=== PATIENT | female | born 1935 | race Caucasian/White ===

== ENCOUNTER → 2016-06-28 | Outpatient (CLI) | payer MEDICARE, MEDICAID ==
[2016-06-28 10:49] LABS: HEMATOCRIT 39.7 % (36.0-47.0); HGB HCT DIFFERENCE -0.7; MEAN CORPUSCULAR HEMOGLOBIN 31.5 pg (27.0-33.4); MEAN CORPUSCULAR HGB CONC 32.7 g/dL (32.0-36.0); MEAN CORPUSCULAR VOLUME 96 fl (80-97); RED BLOOD COUNT 4.12 10^6/uL (3.72-5.28); RED CELL DISTRIBUTION WIDTH 12.6 % (11.5-14.0); WHITE BLOOD COUNT 7.7 10^3/uL (4.0-10.5)
[2016-06-28 10:53] LABS: APPEARANCE,URINE CLEAR; BILIRUBIN,URINE NEGATIVE (NEGATIVE); GLUCOSE, URINE NEGATIVE (NEGATIVE); KETONES,URINE NEGATIVE (NEGATIVE); LEUKOCYTE ESTERASE,URINE NEGATIVE (NEGATIVE); NITRITE,URINE NEGATIVE (NEGATIVE); PROTEIN,URINE NEGATIVE (NEGATIVE); URINE SPECIFIC GRAVITY 1.014; UROBILINOGEN,URINE NEGATIVE mg/dL (<2.0)
[2016-06-28 13:10] LABS: ANION GAP 9 (5-19); BLOOD UREA NITROGEN 27 mg/dL (7-20); CALCIUM 9.7 mg/dL (8.4-10.2); CARBON DIOXIDE 23 mmol/L (22-30); CHLORIDE 108 mmol/L (98-107); CREATININE RESULT 1.01 mg/dL (0.52-1.25); GLUCOSE 102 mg/dL (75-110); POTASSIUM 5.4 mmol/L (3.6-5.0); SODIUM 140.3 mmol/L (137-145)
== END ==
LOC: OD 09:43
PROVIDERS: ATTEND Internal Medicine Nephrology
DX: E11.22 Type 2 diabetes mellitus with diabetic chronic kidney disease (principal); I12.9 Hypertensive chronic kidney disease with stage 1 through stage 4 chronic kidney disease, or unspecified chronic kidney disease; N18.2 Chronic kidney disease, stage 2 (mild); D64.9 Anemia, unspecified
CPT/HCPCS: 36415; 80048; 81001; 85027

== ENCOUNTER → 2016-07-21 | Outpatient (CLI) | payer MEDICARE ==
[2016-07-21 10:49] LABS: ANION GAP 12 (5-19); BLOOD UREA NITROGEN 35 mg/dL (7-20); CALCIUM 9.4 mg/dL (8.4-10.2); CARBON DIOXIDE 23 mmol/L (22-30); CHLORIDE 108 mmol/L (98-107); CREATININE RESULT 1.23 mg/dL (0.52-1.25); GLUCOSE 112 mg/dL (75-110); POTASSIUM 5.7 mmol/L (3.6-5.0); SODIUM 142.7 mmol/L (137-145)
== END ==
LOC: OD 09:45
PROVIDERS: ATTEND Physician Assistant
DX: E87.5 Hyperkalemia (principal)
CPT/HCPCS: 36415; 80048

== ENCOUNTER → 2016-10-06 | Outpatient (CLI) | payer MEDICARE, MEDICAID ==
--- NOTE | 2016-10-06 15:19 | XCELERA REPORT ---
[address] [address] Transthoracic Echocardiogram Report Name: NICOLETTE COHEN Age: 80 yrs Gender: Female : 1935 Patient Status: Outpatient Patient Location: Study Date: 10/06/2016 10:27 AM Height: 61 in Weight: 162 lb BSA: 1.7 m2 Procedure: A two-dimensional transthoracic echocardiogram with color flow and Doppler was performed. Study Quality: Fair. Reason For Study: EDEMA History: EDEMA. Ordering Physician: MARY CAPUTO Performed By: Yessy Pennington Interpretation Summary The left ventricle is normal in size. There is normal left ventricular wall thickness. LV EF is 60% Left ventricular systolic function is normal. Doppler measurements suggest normal left ventricular diastolic function The left ventricular wall motion is normal. There is no thrombus. There is no ventricular septal defect visualized. The left atrial size is normal. The interatrial septum is intact with no evidence for an atrial septal defect. There is no evidence of mitral valve prolapse. There is no vegetation seen on the mitral valve. There is no mitral valve stenosis. There is a mild amount of mitral regurgitation There is no aortic valve stenosis There is no LVOT obstruction. No aortic regurgitation is present. There is no tricuspid stenosis. There is a mild amount of tricuspid regurgitation There is mild pulmonary hypertension by echo RVSP is 39 mm of Hg , with RA mean of 10. There is no pulmonic valvular stenosis. There is a mild amount of pulmonic regurgitation The inferior vena cava was not visualized There is no pericardial effusion. MMode/2D Measurements \T\ Calculations RVDd: 2.8 cm LVIDd: 4.5 cm FS: 36.0 % Ao root diam: 3.0 cm IVSd: 1.1 cm LVIDs: 2.9 cm EDV(Teich): 94.6 ml LVPWd: 1.1 cm ESV(Teich): 32.5 ml Ao root area: 6.8 cm2 EF(Teich): 65.7 % Doppler Measurements \T\ Calculations MV E max yousif: MV dec slope: Ao V2 max: LV V1 max P.5 cm/sec 109.2 cm/sec 3.8 mmHg MV A max yousif: 349.7 cm/sec2 Ao max PG: LV V1 max: 74.6 cm/sec MV dec time: 4.8 mmHg 98.0 cm/sec MV E/A: 1.4 0.29 sec PA V2 max: PI end-d yousif: TR max yousif: 67.8 cm/sec 130.7 cm/sec 254.7 cm/sec PA max P.8 mmHg TR max P.1 mmHg Left Ventricle The left ventricle is normal in size. There is normal left ventricular wall thickness. LV EF is 60%. Left ventricular systolic function is normal. Doppler measurements suggest normal left ventricular diastolic function. The left ventricular wall motion is normal. There is no thrombus. There is no ventricular septal defect visualized. Right Ventricle The right ventricle is normal in size and function. Atria The right atrium is normal in size. The left atrial size is normal. The interatrial septum is intact with no evidence for an atrial septal defect. Mitral Valve There is no evidence of mitral valve prolapse. There is no vegetation seen on the mitral valve. There is no mitral valve stenosis. There is a mild amount of mitral regurgitation. Aortic Valve There is no aortic valvular vegetation. There is no aortic valve stenosis. There is no LVOT obstruction. No aortic regurgitation is present. Tricuspid Valve There is no tricuspid stenosis. There is a mild amount of tricuspid regurgitation. There is mild pulmonary hypertension by echo. RVSP is 39 mm of Hg , with RA mean of 10. Pulmonic Valve There is no pulmonic valvular stenosis. There is a mild amount of pulmonic regurgitation. Great Vessels The aortic root is normal size. The inferior vena cava was not visualized. Effusions There is no pericardial effusion. : MARY CAPUTO > Bernadette Burgess
--- NOTE | 2016-10-07 07:58 | XCELERA REPORT ---
[address] [address] Lower Extremity Venous Evaluation Name: NICOLETTE COHEN Age: 80 yrs Gender: Female : 1935 Patient Status: Outpatient Patient Location: Study Date: 10/06/2016 08:55 AM Procedure: Color flow and duplex imaging bilaterally of the veins of the lower extremities as well as the Common Femoral veins. Reason For Study: EDEMA Ordering Physician: MARY CAPUTO Performed By: Yessy Pennington Right Sided Venous Evaluation Normal vessel filling wall to wall, compression and augmentation as well as Colour flow down to the infrageniculate veins. Left Sided Venous Evaluation Normal vessel filling wall to wall, compression and augmentation as well as Colour flow down to the infrageniculate veins. Interpretation Summary No duplex evidence of DVT or obstruction in the bilateral lower extremities. : MARY CAPUTO > Edgardo Marrero
== END ==
LOC: SP 08:27
PROVIDERS: ATTEND Physician Assistant
DX: R60.1 Generalized edema (principal); R60.0 Localized edema
CPT/HCPCS: 93306; 93970

== ENCOUNTER → 2016-11-18 | Outpatient (CLI) | payer MEDICARE, MEDICAID ==
[2016-11-18 10:37] LABS: HEMATOCRIT 37.2 % (36.0-47.0); HEMOGLOBIN 12.5 g/dL (12.0-15.5); HGB HCT DIFFERENCE 0.3; MEAN CORPUSCULAR HEMOGLOBIN 31.8 pg (27.0-33.4); MEAN CORPUSCULAR HGB CONC 33.7 g/dL (32.0-36.0); MEAN CORPUSCULAR VOLUME 94 fl (80-97); RED BLOOD COUNT 3.95 10^6/uL (3.72-5.28); WHITE BLOOD COUNT 6.9 10^3/uL (4.0-10.5)
[2016-11-18 10:50] LABS: ANION GAP 13 (5-19); BLOOD UREA NITROGEN 50 mg/dL (7-20); CALCIUM 8.6 mg/dL (8.4-10.2); CARBON DIOXIDE 20 mmol/L (22-30); CHLORIDE 106 mmol/L (98-107); CREATININE RESULT 1.54 mg/dL (0.52-1.25); GLUCOSE 109 mg/dL (75-110); MAGNESIUM 2.6 mg/dL (1.6-2.3); POTASSIUM 4.9 mmol/L (3.6-5.0); SODIUM 139.3 mmol/L (137-145)
== END ==
LOC: OD 09:38
PROVIDERS: ATTEND Internal Medicine Nephrology
DX: N18.2 Chronic kidney disease, stage 2 (mild) (principal); E87.5 Hyperkalemia; D64.9 Anemia, unspecified; I12.9 Hypertensive chronic kidney disease with stage 1 through stage 4 chronic kidney disease, or unspecified chronic kidney disease
CPT/HCPCS: 36415; 80048; 83735; 85027

== ENCOUNTER → 2017-03-16 | Outpatient (CLI) | payer MEDICARE, MEDICAID ==
--- NOTE | 2017-03-16 16:53 | RADIOLOGY REPORT (SQ) ---
EXAM DESCRIPTION: ACUTE ABDOMEN SERIES COMPLETED DATE/TIME: 03/16/2017 4:40 pm REASON FOR STUDY: EPIGASTRIC PAIN R10.13 EPIGASTRIC PAIN COMPARISON: CT abdomen pelvis 11/13/2015 Abdominal ultrasound 09/10/2015 MR high abdomen 08/02/2010 NUMBER OF VIEWS: Three views. TECHNIQUE: Frontal chest, supine abdomen and upright abdomen radiographic images acquired. LIMITATIONS: None. FINDINGS: CHEST: Lungs clear of infiltrates. No cardiomegaly. Stefanie unremarkable. Old healed right posterior 7th rib fracture FREE AIR: None. No abnormal gas collections. BOWEL GAS PATTERN: Nonobstructive pattern. No dilated loops or air fluid levels. CALCIFICATIONS: No suspicious calcifications. HARDWARE: None in the abdomen. SOFT TISSUES: No gross mass or suggestion of organomegaly. BONES: Osteoporotic with degenerative convex rightward lumbar curvature and kyphoplasty with bone kayy ent at the T12 level OTHER: No other significant finding. IMPRESSION: Nonobstructive bowel gas pattern. No acute infiltrates TECHNICAL DOCUMENTATION: JOB ID: [id number] [email or web address]- All Rights Reserved
== END ==
LOC: OD 16:16
PROVIDERS: ATTEND Physician Assistant
DX: R10.13 Epigastric pain (principal)
CPT/HCPCS: 74022

== ENCOUNTER → 2017-03-24 | Outpatient (CLI) | payer MEDICARE, MEDICAID ==
--- NOTE | 2017-03-24 12:56 | RADIOLOGY REPORT (SQ) ---
EXAM DESCRIPTION: CT ABD/PELVIS NO ORAL OR IV COMPLETED DATE/TIME: 03/24/2017 9:19 am REASON FOR STUDY: LLQ PAIN (R10.32) R10.32 LEFT LOWER QUADRANT PAIN COMPARISON: October 2015 TECHNIQUE: CT scan of the abdomen and pelvis performed without intravenous or oral contrast. Images reviewed with lung, soft tissue, and bone windows. Reconstructed coronal and sagittal MPR images revi ewed. All images stored on PACS. All CT scanners at this facility use dose modulation, iterative reconstruction, and/or weight based d osing when appropriate to reduce radiation dose to as low as reasonably achievable (ALARA). [facility]: Dose Right [facility]: CareDose [facility]: Dose Right [facility]: Teradose 4D [facility]: [employer] RADIATION DOSE: CT Rad equipment meets quality standard of care and radiation dose reduction techniq ues were employed. CTDIvol: 8.5 mGy. DLP: 399 mGy-cm.mGy. LIMITATIONS: None. FINDINGS: LOWER CHEST: No significant findings. No nodules or infiltrates. NON-CONTRASTED LIVER, SPLEEN, ADRENALS: Evaluation limited by lack of IV contrast. No identified sign ificant masses. PANCREAS: No masses. No peripancreatic inflammatory changes. GALLBLADDER: No identified stones by CT criteria. No inflammatory changes to suggest cholecystitis. RIGHT KIDNEY AND URETER: No suspicious masses. Assessment limited by lack of IV contrast. No signif icant calcifications. No hydronephrosis or hydroureter. LEFT KIDNEY AND URETER: No suspicious masses. Assessment limited by lack of IV contrast. No signifi cant calcifications. No hydronephrosis or hydroureter. AORTA AND RETROPERITONEUM: No aneurysm. No retroperitoneal masses or adenopathy. BOWEL AND PERITONEAL CAVITY: No obvious masses or inflammatory changes. No free fluid. APPENDIX: Not identified PELVIS, BLADDER, AND ABDOMINAL WALL:No abnormal masses. No free fluid. Bladder normal. BONES: A lumbar scoliosis convex to the right is identified with extensive degenerative changes. OTHER: No other significant finding. IMPRESSION: NO SIGNIFICANT OR ACUTE PROCESS IN THE ABDOMEN OR PELVIS. COMMENT: Quality ID # 436: Final reports with documentation of one or more dose reduction techniques (e.g., Automated exposure control, adjustment of the mA and/or kV according to patient size, use of iterative reconstruction technique) TECHNICAL DOCUMENTATION: JOB ID: [id number]- All Rights Reserved
== END ==
LOC: RAD 08:48
PROVIDERS: ATTEND Physician Assistant
DX: R10.32 Left lower quadrant pain (principal); M41.86 Other forms of scoliosis, lumbar region; Z88.6 Allergy status to analgesic agent; Z88.8 Allergy status to other drugs, medicaments and biological substances
CPT/HCPCS: 74176

== ENCOUNTER → 2017-06-12 | Outpatient (CLI) | payer MEDICARE, MEDICAID ==
[2017-06-12 11:28] LABS: HEMATOCRIT 37.4 % (36.0-47.0); HEMOGLOBIN 12.4 g/dL (12.0-15.5); MEAN CORPUSCULAR HEMOGLOBIN 31.3 pg (27.0-33.4); MEAN CORPUSCULAR HGB CONC 33.1 g/dL (32.0-36.0); MEAN CORPUSCULAR VOLUME 94 fl (80-97); RED BLOOD COUNT 3.97 10^6/uL (3.72-5.28); RED CELL DISTRIBUTION WIDTH 13.3 % (11.5-14.0); WHITE BLOOD COUNT 10.5 10^3/uL (4.0-10.5)
[2017-06-12 11:43] LABS: APPEARANCE,URINE CLEAR; BILIRUBIN,URINE NEGATIVE (NEGATIVE); COLOR,URINE YELLOW; GLUCOSE, URINE NEGATIVE (NEGATIVE); KETONES,URINE NEGATIVE (NEGATIVE); LEUKOCYTE ESTERASE,URINE TRACE (NEGATIVE); NITRITE,URINE NEGATIVE (NEGATIVE); PROTEIN,URINE NEGATIVE (NEGATIVE); URINE SPECIFIC GRAVITY 1.013; UROBILINOGEN,URINE NEGATIVE mg/dL (<2.0)
[2017-06-12 11:51] LABS: ANION GAP 13 (5-19); BLOOD UREA NITROGEN 19 mg/dL (7-20); CALCIUM 9.4 mg/dL (8.4-10.2); CARBON DIOXIDE 25 mmol/L (22-30); CHLORIDE 103 mmol/L (98-107); GLUCOSE 114 mg/dL (75-110); POTASSIUM 4.8 mmol/L (3.6-5.0); SODIUM 141.3 mmol/L (137-145)
[2017-06-12 12:00] LABS: PLATELET COUNT 147 10^3/uL (150-450)
== END ==
LOC: OD 10:26
PROVIDERS: ATTEND Internal Medicine Nephrology
DX: N18.2 Chronic kidney disease, stage 2 (mild) (principal); E87.5 Hyperkalemia; D64.9 Anemia, unspecified; E11.9 Type 2 diabetes mellitus without complications
CPT/HCPCS: 36415; 80048; 81001; 85027

== ENCOUNTER → 2017-06-30 | Outpatient (CLI) | payer MEDICARE, MEDICAID ==
[2017-06-30 11:57] LABS: ABSOLUTE EOSINOPHILS # (AUTO) 0.1 10^3/uL (0.0-0.6); ABSOLUTE LYMPHOCYTES (AUTO) 1.1 10^3/uL (0.5-4.7); ABSOLUTE MONOCYTES (AUTO) 0.7 10^3/uL (0.1-1.4); ABSOLUTE NEUT (AUTO) 7.7 10^3/uL (1.7-8.2); BASOPHILS % (AUTO) 0.3 % (0-2); EOSINOPHILS % (AUTO) 0.8 % (0-6); HEMATOCRIT 37.1 % (36.0-47.0); HEMOGLOBIN 12.6 g/dL (12.0-15.5); LYMPHOCYTES % (AUTO) 11.8 % (13-45); MEAN CORPUSCULAR HEMOGLOBIN 32.4 pg (27.0-33.4); MEAN CORPUSCULAR HGB CONC 33.9 g/dL (32.0-36.0); MEAN CORPUSCULAR VOLUME 96 fl (80-97); MONOCYTES % (AUTO) 7.6 % (3-13); PLATELET COUNT 201 10^3/uL (150-450); RED BLOOD COUNT 3.88 10^6/uL (3.72-5.28); SEGMENTED NEUTROPHILS % (AUTO) 79.5 % (42-78); TOTAL CELLS COUNTED % (AUTO) 100 %; WHITE BLOOD COUNT 9.7 10^3/uL (4.0-10.5)
--- NOTE | 2017-06-30 12:20 | RADIOLOGY REPORT (SQ) ---
EXAM DESCRIPTION: CHEST PA/LAT COMPLETED DATE/TIME: 06/30/2017 11:34 am REASON FOR STUDY: COUGH COMPARISON: 02/17/2016 EXAM PARAMETERS: NUMBER OF VIEWS: two views TECHNIQUE: Digital Frontal and Lateral radiographic views of the chest acquired. RADIATION DOSE: NA LIMITATIONS: none FINDINGS: LUNGS AND PLEURA: No opacities, masses or pneumothorax. No pleural effusion. MEDIASTINUM AND HILAR STRUCTURES: No masses or contour abnormalities. HEART AND VASCULAR STRUCTURES: Heart normal size. No evidence for failure. BONES: Stable in appearance. There is a healed right-sided rib fracture. HARDWARE: None in the chest. OTHER: No other significant finding. IMPRESSION: NO SIGNIFICANT RADIOGRAPHIC FINDING IN THE CHEST. TECHNICAL DOCUMENTATION: JOB ID: [id number] [employer]- All Rights Reserved Reading location - IP/workstation name: [email or web address]
[2017-06-30 12:24] LABS: ALANINE AMINOTRANSFERASE 48 U/L (9-52); ALKALINE PHOSPHATASE 93 U/L (38-126); ANION GAP 8 (5-19); ASPARTATE AMINO TRANSFERASE 42 U/L (14-36); BILIRUBIN,DIRECT 0.3 mg/dL (0.0-0.4); BILIRUBIN,TOTAL 0.3 mg/dL (0.2-1.3); BLOOD UREA NITROGEN 20 mg/dL (7-20); CARBON DIOXIDE 26 mmol/L (22-30); CHLORIDE 106 mmol/L (98-107); GLUCOSE 85 mg/dL (75-110); POTASSIUM 4.5 mmol/L (3.6-5.0); SODIUM 140.1 mmol/L (137-145); TOTAL PROTEIN 6.8 g/dL (6.3-8.2)
== END ==
LOC: RAD 11:16
PROVIDERS: ATTEND Physician Assistant
DX: R05 Cough (principal)
CPT/HCPCS: 36415; 71046; 80053; 85025

== ENCOUNTER → 2017-07-17 | Outpatient (CLI) | payer MEDICARE, MEDICAID ==
--- NOTE | 2017-07-17 10:56 | RADIOLOGY REPORT (SQ) ---
EXAM DESCRIPTION: CT CHEST WITHOUT COMPLETED DATE/TIME: 07/17/2017 9:45 am REASON FOR STUDY: COUGH R05 COUGH COMPARISON: None. TECHNIQUE: CT scan performed of the chest without intravenous contrast. Images reviewed with lung, soft tissue and bone windows. Reconstructed coronal and sagittal MPR images reviewed. All images st ored on PACS. All CT scanners at this facility use dose modulation, iterative reconstruction, and/or weight based d osing when appropriate to reduce radiation dose to as low as reasonably achievable (ALARA). [facility]: Dose Right [facility]: CareDose [facility]: Dose Right [facility]: Teradose 4D [facility]: [employer] RADIATION DOSE: CT Rad equipment meets quality standard of care and radiation dose reduction techniq ues were employed. CTDIvol: 9.7 mGy. DLP: 349 mGy-cm. mGy. LIMITATIONS: No technical limitations. FINDINGS: LUNGS AND PLEURA: Focal small to mild parenchymal densities in the left upper lobe, axial image 45, series 4, may be on the basis of atypical infection, inflammatory/infectious etiologies. Mild thickening of the bronchial lambert centrally, may be on an acute versus chronic basis. Bilateral non-calcified pulmonary nodules. One of the largest is in the right lower lobe which measur es 6-7 mm, axial image 85, series 4(stable finding since CT abdomen and pelvis study dated 03/24/2017) . Biapical mild scar or atelectasis. No pneumothorax or pleural effusion. The central airways are clear. HILAR AND MEDIASTINAL STRUCTURES: No identified masses or abnormal nodes. No obvious aneurysm. HEART AND VASCULAR STRUCTURES: Dense coronary artery calcifications. No aneurysm. No pericardial e ffusion. UPPER ABDOMEN: Atherosclerotic changes involving the visualized upper abdominal aorta. Limited exam . THYROID AND OTHER SOFT TISSUES: No masses. No adenopathy. BONES: Prior kyphoplasty at T12 with remote compression of the T12 vertebra, stable finding. HARDWARE: None in the chest. OTHER: No other significant findings. IMPRESSION: 1 Focal small to mild parenchymal densitis in the left upper lobe, may be on the basis o f atypical infection, inflammatory/ infectious etiologies. Correlation is suggested. 2 Bilateral noncalcified subcentimeter pulmonary nodules. One of the largest in the right lower lobe is stable in appearance since the CT abdomen and pelvis study dated 04/13/2017. A follow-up noncont rast CT chest examination is suggested in three months to document for interval stability. 3 Additional findings as above. TECHNICAL DOCUMENTATION: JOB ID: [id number] Quality ID # 436: Final reports with documentation of one or more dose reduction techniques (e.g., Au tomated exposure control, adjustment of the mA and/or kV according to patient size, use of iterative reconstruction technique) 2010 [employer]- All Rights Reserved Reading location - IP/workstation name: [email or web address]
== END ==
LOC: RAD 09:32
PROVIDERS: ATTEND Physician Assistant
DX: R05 Cough (principal)
CPT/HCPCS: 71250

== ENCOUNTER → 2017-12-04 | Outpatient (CLI) | payer MEDICARE, MEDICAID ==
--- NOTE | 2017-12-04 10:53 | RADIOLOGY REPORT (SQ) ---
EXAM DESCRIPTION: CT CHEST WITHOUT COMPLETED DATE/TIME: 12/04/2017 10:35 am REASON FOR STUDY: OTHER NONSPECIFIC ABN FINDING OF LUNG FIELD (R91.8) R91.8 OTHER NONSPECIFIC ABNOR MAL FINDING OF LUNG FIELD COMPARISON: 07/17/2017. TECHNIQUE: CT scan performed of the chest without intravenous contrast. Images reviewed with lung, soft tissue and bone windows. Reconstructed coronal and sagittal MPR images reviewed. All images st ored on PACS. All CT scanners at this facility use dose modulation, iterative reconstruction, and/or weight based d osing when appropriate to reduce radiation dose to as low as reasonably achievable (ALARA). [facility]: Dose Right [facility]: CareDose [facility]: Dose Right [facility]: Teradose 4D [facility]: [employer] RADIATION DOSE: CT Rad equipment meets quality standard of care and radiation dose reduction techniq ues were employed. CTDIvol: 8.8 mGy. DLP: 316 mGy-cm. mGy. LIMITATIONS: No technical limitations. FINDINGS: LUNGS AND PLEURA: Previously described faint ground-glass nodules in the left upper lobe a nd left lower lobe along the fissure over are stable or less conspicuous. No new nodules are identif ied. No effusions. HILAR AND MEDIASTINAL STRUCTURES: No identified masses or abnormal nodes. No obvious aneurysm. HEART AND VASCULAR STRUCTURES: No aneurysm. No pericardial effusion. UPPER ABDOMEN: Limited exam. Right renal collecting system is dilated. THYROID AND OTHER SOFT TISSUES: No masses. No adenopathy. BONES: No acute findings. Prior kyphoplasty transitional vertebra. HARDWARE: None in the chest. OTHER: No other significant findings. IMPRESSION: 1. Stable ground-glass nodules in the left lung. 2. Dilated right renal collecting system incompletely evaluated. Consider follow-up ultrasound or CT . TECHNICAL DOCUMENTATION: JOB ID: [id number] Quality ID # 436: Final reports with documentation of one or more dose reduction techniques (e.g., Au tomated exposure control, adjustment of the mA and/or kV according to patient size, use of iterative reconstruction technique) 2010 [employer]- All Rights Reserved Reading location - IP/workstation name: [email or web address]
== END ==
LOC: RAD 09:58
PROVIDERS: ATTEND Internal Medicine Critical Care Medicine
DX: R91.8 Other nonspecific abnormal finding of lung field (principal)
CPT/HCPCS: 71250

== ENCOUNTER → 2017-12-19 | Outpatient (CLI) | payer MEDICARE, MEDICAID ==
[2017-12-19 12:16] LABS: APPEARANCE,URINE CLEAR; BILIRUBIN,URINE NEGATIVE (NEGATIVE); COLOR,URINE YELLOW; GLUCOSE, URINE NEGATIVE (NEGATIVE); KETONES,URINE NEGATIVE (NEGATIVE); LEUKOCYTE ESTERASE,URINE SMALL (NEGATIVE); NITRITE,URINE NEGATIVE (NEGATIVE); PROTEIN,URINE NEGATIVE (NEGATIVE); URINE SPECIFIC GRAVITY 1.014; UROBILINOGEN,URINE NEGATIVE mg/dL (<2.0)
[2017-12-19 12:18] LABS: HEMATOCRIT 34.6 % (36.0-47.0); HEMOGLOBIN 11.8 g/dL (12.0-15.5); MEAN CORPUSCULAR HEMOGLOBIN 32.2 pg (27.0-33.4); MEAN CORPUSCULAR HGB CONC 34.2 g/dL (32.0-36.0); MEAN CORPUSCULAR VOLUME 94 fl (80-97); PLATELET COUNT 193 10^3/uL (150-450); RED BLOOD COUNT 3.67 10^6/uL (3.72-5.28); RED CELL DISTRIBUTION WIDTH 12.3 % (11.5-14.0); WHITE BLOOD COUNT 7.9 10^3/uL (4.0-10.5)
[2017-12-19 12:50] LABS: ANION GAP 12 (5-19); BLOOD UREA NITROGEN 35 mg/dL (7-20); CALCIUM 9.3 mg/dL (8.4-10.2); CARBON DIOXIDE 22 mmol/L (22-30); CHLORIDE 107 mmol/L (98-107); GLUCOSE 99 mg/dL (75-110); POTASSIUM 5.4 mmol/L (3.6-5.0); SODIUM 140.5 mmol/L (137-145)
== END ==
LOC: OD 11:02
PROVIDERS: ATTEND Internal Medicine Nephrology
DX: N18.3 Chronic kidney disease, stage 3 (moderate) (principal); I12.9 Hypertensive chronic kidney disease with stage 1 through stage 4 chronic kidney disease, or unspecified chronic kidney disease; E87.5 Hyperkalemia; E11.22 Type 2 diabetes mellitus with diabetic chronic kidney disease
CPT/HCPCS: 36415; 80048; 81001; 85027

== ENCOUNTER → 2018-01-19 | Outpatient (CLI) | payer MEDICARE, MEDICAID ==
[2018-01-19 10:27] LABS: HEMOGLOBIN 11.1 g/dL (12.0-15.5); MEAN CORPUSCULAR HEMOGLOBIN 32.1 pg (27.0-33.4); MEAN CORPUSCULAR HGB CONC 34.6 g/dL (32.0-36.0); MEAN CORPUSCULAR VOLUME 93 fl (80-97); PLATELET COUNT 183 10^3/uL (150-450); RED BLOOD COUNT 3.45 10^6/uL (3.72-5.28); RED CELL DISTRIBUTION WIDTH 12.5 % (11.5-14.0); WHITE BLOOD COUNT 8.9 10^3/uL (4.0-10.5)
[2018-01-19 10:31] LABS: APPEARANCE,URINE CLEAR; BILIRUBIN,URINE NEGATIVE (NEGATIVE); COLOR,URINE STRAW; GLUCOSE, URINE NEGATIVE (NEGATIVE); KETONES,URINE NEGATIVE (NEGATIVE); LEUKOCYTE ESTERASE,URINE SMALL (NEGATIVE); NITRITE,URINE NEGATIVE (NEGATIVE); PROTEIN,URINE NEGATIVE (NEGATIVE); UROBILINOGEN,URINE NEGATIVE mg/dL (<2.0)
[2018-01-19 10:45] LABS: ANION GAP 10 (5-19); BLOOD UREA NITROGEN 45 mg/dL (7-20); CALCIUM 8.6 mg/dL (8.4-10.2); CARBON DIOXIDE 21 mmol/L (22-30); CHLORIDE 105 mmol/L (98-107); GLUCOSE 132 mg/dL (75-110); POTASSIUM 5.1 mmol/L (3.6-5.0); SODIUM 135.8 mmol/L (137-145)
== END ==
LOC: OD 09:45
PROVIDERS: ATTEND Internal Medicine Nephrology
DX: N18.2 Chronic kidney disease, stage 2 (mild) (principal)
CPT/HCPCS: 36415; 80048; 81001; 85027

== ENCOUNTER → 2018-01-31 | Outpatient (CLI) | payer MEDICARE, MEDICAID | LOC: RAD 08:59 | PROVIDERS: ATTEND Urology | DX: N39.0 Urinary tract infection, site not specified (principal); R31.9 Hematuria, unspecified | CPT/HCPCS: 82565 ==

== ENCOUNTER → 2018-03-05 | Outpatient (CLI) | payer MEDICARE, MEDICAID ==
--- NOTE | 2018-03-05 14:48 | RADIOLOGY REPORT (SQ) ---
EXAM DESCRIPTION: CT ABD/PELVIS NO ORAL OR IV COMPLETED DATE/TIME: 03/05/2018 9:49 am REASON FOR STUDY: HEMATURIA HYDRONEPHROSIS R31.9 HEMATURIA, UNSPECIFIED N13.30 UNSPECIFIED HYDRONE PHROSIS COMPARISON: 03/24/2017 TECHNIQUE: CT scan of the abdomen and pelvis performed without intravenous or oral contrast. Images reviewed with lung, soft tissue, and bone windows. Reconstructed coronal and sagittal MPR images revi ewed. All images stored on PACS. All CT scanners at this facility use dose modulation, iterative reconstruction, and/or weight based d osing when appropriate to reduce radiation dose to as low as reasonably achievable (ALARA). [facility]: Dose Right [facility]: CareDose [facility]: Dose Right [facility]: Teradose 4D [facility]: [employer] RADIATION DOSE: CT Rad equipment meets quality standard of care and radiation dose reduction techniq ues were employed. CTDIvol: 7.2 mGy. DLP: 343 mGy-cm.mGy. LIMITATIONS: None. FINDINGS: LOWER CHEST: There is an 8 mm stable nodule at the right hemidiaphragm. This is seen on i mage 12. NON-CONTRASTED LIVER, SPLEEN, ADRENALS: Evaluation limited by lack of IV contrast. No identified sign ificant masses. PANCREAS: No masses. No peripancreatic inflammatory changes. GALLBLADDER: There appear to be some small relatively low-density gallstones. RIGHT KIDNEY AND URETER: There appears to be mild right hydronephrosis. No significant ureteral dila tation. No ureteral stone or obstruction. No significant calcifications. LEFT KIDNEY AND URETER: No suspicious masses. Assessment limited by lack of IV contrast. No signifi cant calcifications. No hydronephrosis or hydroureter. AORTA AND RETROPERITONEUM: No aneurysm. There is prominent plaque at the origin of the superior mese nteric artery. BOWEL AND PERITONEAL CAVITY: No obvious masses or inflammatory changes. No free fluid. APPENDIX: Not identified. PELVIS, BLADDER, AND ABDOMINAL WALL:No abnormal masses. No free fluid. Bladder normal. BONES: Scoliosis. Degenerative disc changes. Compression changes with kyphoplasty at T12. OTHER: No other significant finding. IMPRESSION: Stable small right pulmonary nodule. Mild right hydronephrosis with no ureteral stone o r obstruction identified. Osseous findings as described. Prominent plaque at the origin of the SMA. COMMENT: FLEISCHNER CRITERIA FOR FOLLOW-UP OF PULMONARY NODULES Incidentally detected new nodules in persons 35 or older. HIGH RISK: History of smoking or other known risk factors. 6-8mm single solid nodule: LOW RISK: CT 6-12 mo; then consider CT 18-24 mo. HIGH RISK: CT 6-12 mo; th en CT 18-24 mo. Quality ID # 436: Final reports with documentation of one or more dose reduction techniques (e.g., Au tomated exposure control, adjustment of the mA and/or kV according to patient size, use of iterative reconstruction technique) TECHNICAL DOCUMENTATION: JOB ID: [id number] [employer]- All Rights Reserved Reading location - IP/workstation name: [email or web address]
== END ==
LOC: RAD 09:35
PROVIDERS: ATTEND Urology
DX: N13.30 Unspecified hydronephrosis (principal); R31.9 Hematuria, unspecified; R91.1 Solitary pulmonary nodule
CPT/HCPCS: 74176

== ENCOUNTER → 2018-03-13 | Outpatient (CLI) | payer MEDICARE, MEDICAID ==
[2018-03-13 10:44] LABS: APPEARANCE,URINE CLOUDY; BILIRUBIN,URINE NEGATIVE (NEGATIVE); COLOR,URINE STRAW; GLUCOSE, URINE NEGATIVE (NEGATIVE); KETONES,URINE NEGATIVE (NEGATIVE); LEUKOCYTE ESTERASE,URINE LARGE (NEGATIVE); NITRITE,URINE NEGATIVE (NEGATIVE); PROTEIN,URINE NEGATIVE (NEGATIVE); URINE SPECIFIC GRAVITY 1.006; UROBILINOGEN,URINE NEGATIVE mg/dL (<2.0)
[2018-03-13 10:59] LABS: ABSOLUTE LYMPHOCYTES (AUTO) 0.9 10^3/uL (0.5-4.7); ABSOLUTE MONOCYTES (AUTO) 0.5 10^3/uL (0.1-1.4); ABSOLUTE NEUT (AUTO) 7.7 10^3/uL (1.7-8.2); BASOPHILS % (AUTO) 0.2 % (0-2); HEMATOCRIT 33.7 % (36.0-47.0); HEMOGLOBIN 11.5 g/dL (12.0-15.5); LYMPHOCYTES % (AUTO) 9.5 % (13-45); MEAN CORPUSCULAR HGB CONC 34.2 g/dL (32.0-36.0); MEAN CORPUSCULAR VOLUME 94 fl (80-97); MONOCYTES % (AUTO) 5.3 % (3-13); PLATELET COUNT 266 10^3/uL (150-450); RED BLOOD COUNT 3.59 10^6/uL (3.72-5.28); RED CELL DISTRIBUTION WIDTH 13.5 % (11.5-14.0); TOTAL CELLS COUNTED % (AUTO) 100 %; WHITE BLOOD COUNT 9.1 10^3/uL (4.0-10.5)
[2018-03-13 11:19] LABS: ANION GAP 13 (5-19); BLOOD UREA NITROGEN 39 mg/dL (7-20); CALCIUM 9.4 mg/dL (8.4-10.2); CARBON DIOXIDE 21 mmol/L (22-30); CHLORIDE 106 mmol/L (98-107); GLUCOSE 141 mg/dL (75-110); POTASSIUM 4.6 mmol/L (3.6-5.0)
== END ==
LOC: OD 09:50
PROVIDERS: ATTEND Internal Medicine Nephrology
DX: I12.9 Hypertensive chronic kidney disease with stage 1 through stage 4 chronic kidney disease, or unspecified chronic kidney disease (principal); N18.2 Chronic kidney disease, stage 2 (mild); N39.0 Urinary tract infection, site not specified
CPT/HCPCS: 36415; 80048; 81001; 85025

== ENCOUNTER → 2018-03-30 | Outpatient (CLI) | payer MEDICARE, MEDICAID ==
[2018-03-30 10:36] LABS: ANION GAP 11 (5-19); BLOOD UREA NITROGEN 25 mg/dL (7-20); CALCIUM 8.5 mg/dL (8.4-10.2); CARBON DIOXIDE 23 mmol/L (22-30); CHLORIDE 111 mmol/L (98-107); GLUCOSE 132 mg/dL (75-110); POTASSIUM 4.3 mmol/L (3.6-5.0); SODIUM 144.5 mmol/L (137-145)
== END ==
LOC: OD 08:28
PROVIDERS: ATTEND Family Medicine
DX: E87.5 Hyperkalemia (principal)
CPT/HCPCS: 36415; 80048

== ENCOUNTER 2018-05-11 18:21 | Emergency (ER) | payer MEDICARE, MEDICAID ==
[2018-05-11] MEDS ORDERED: OXYCODONE-ACETAMINOPHEN 5-325 MG TABLET PO ONE (21:50)
[2018-05-11] MEDS ORDERED: ONDANSETRON 4 MG TAB.RAPDIS PO ONE (21:50)
--- NOTE | 2018-05-11 21:51 | ER Document Report ---
ED Medical Screen (RME) - General Chief Complaint: Abdominal Pain Stated Complaint: ABDOMINAL PAIN Time Seen by Provider: 05/11/18 21:49 Primary Care Provider: ESTUARDO OCASIO MD [Primary Care Provider] - Follow up as needed Notes: 82-year-old female with chief complaint of sharp lower abdominal pain. Radiates from the lower towards the mid abdomen. No flank pain. No chest pain. No vomiting. Has had bowel movements. Had bladder scraping for bladder cancer [address] Smith at [facility]. Initially had no trouble but has developed increasing pain for the past several days. Today pain became severe. TRAVEL OUTSIDE OF THE [place] 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 Denies: Hx Mastectomy, Hx Open Heart Surgery, Hx Pacemaker - Immunizations Hx Diphtheria, Pertussis, Tetanus Vaccination: Yes Physical Exam - Vital signs Vitals: Temp Pulse Resp BP Pulse Ox 97.8 F 88 20 96/62 L 99 05/11/18 18:35 05/11/18 18:35 05/11/18 18:35 05/11/18 18:35 05/11/18 18:35 - Abdominal Tenderness: Tender - Tender in the lower abdomen generally and going up towards the mid abdomen. Nonspecific. No particular guarding. Exam limited by sitting position. Course - Re-evaluation Re-evalutation: Patient talkative and well-appearing. She does have abdominal pain on exam. Blood pressure rechecked and is normal. - Vital Signs Vital signs: Temp Pulse Resp BP Pulse Ox 97.8 F 88 20 124/68 99 05/11/18 18:35 05/11/18 18:35 05/11/18 18:35 05/11/18 21:49 05/11/18 18:35 Doctor's Discharge - Discharge Referrals: ESTUARDO OCASIO MD [Primary Care Provider] - Follow up as needed
[2018-05-11 22:26] LABS: ABSOLUTE BASOPHILS # (AUTO) 0.1 10^3/uL (0.0-0.2); ABSOLUTE EOSINOPHILS # (AUTO) 0.3 10^3/uL (0.0-0.6); ABSOLUTE LYMPHOCYTES (AUTO) 1.7 10^3/uL (0.5-4.7); ABSOLUTE MONOCYTES (AUTO) 0.6 10^3/uL (0.1-1.4); BASOPHILS % (AUTO) 0.8 % (0-2); EOSINOPHILS % (AUTO) 3.3 % (0-6); HEMATOCRIT 36.3 % (36.0-47.0); HEMOGLOBIN 12.1 g/dL (12.0-15.5); LYMPHOCYTES % (AUTO) 22.4 % (13-45); MEAN CORPUSCULAR HGB CONC 33.3 g/dL (32.0-36.0); MEAN CORPUSCULAR VOLUME 96 fl (80-97); MONOCYTES % (AUTO) 7.8 % (3-13); PLATELET COUNT 213 10^3/uL (150-450); RED BLOOD COUNT 3.77 10^6/uL (3.72-5.28); RED CELL DISTRIBUTION WIDTH 13.5 % (11.5-14.0); SEGMENTED NEUTROPHILS % (AUTO) 65.7 % (42-78); TOTAL CELLS COUNTED % (AUTO) 100 %; WHITE BLOOD COUNT 7.6 10^3/uL (4.0-10.5)
[2018-05-11 22:42] LABS: ALANINE AMINOTRANSFERASE 22 U/L (9-52); ALBUMIN 4.5 g/dL (3.5-5.0); ALKALINE PHOSPHATASE 109 U/L (38-126); ANION GAP 5 (5-19); ASPARTATE AMINO TRANSFERASE 32 U/L (14-36); BILIRUBIN,DIRECT 0.3 mg/dL (0.0-0.4); BILIRUBIN,TOTAL 0.4 mg/dL (0.2-1.3); BLOOD UREA NITROGEN 34 mg/dL (7-20); CALCIUM 9.1 mg/dL (8.4-10.2); CARBON DIOXIDE 26 mmol/L (22-30); CHLORIDE 108 mmol/L (98-107); GLUCOSE 96 mg/dL (75-110); POTASSIUM 4.9 mmol/L (3.6-5.0); SODIUM 139.1 mmol/L (137-145); TOTAL PROTEIN 7.5 g/dL (6.3-8.2)
--- NOTE | 2018-05-11 23:15 | RADIOLOGY REPORT (SQ) ---
EXAM DESCRIPTION: CT ABDOMEN PELVIS WITHOUT IV CONTRAST COMPLETED DATE/TME: 05/11/2018 21:49 CLINICAL HISTORY: 82 years, Female, sharp lower abd pain COMPARISON: 03/05/2018 CT TECHNIQUE: 298 Images stored on PACS. All CT scanners at this facility use dose modulation, iterative reconstruction, and/or weight based dosing when appropriate to reduce radiation dose to as low as reasonably achievable (ALARA). [facility]: Dose Right [facility]: CareDose [facility]: Dose Right [facility]: Teradose 4D [facility]: [employer] LIMITATIONS: None. FINDINGS: Limited evaluation of the lung bases is otherwise stable, approximately 7.7 mm nodule right lung base. Unremarkable. Osseous structures are grossly intact. Suspected fatty infiltrative change to the liver. The spleen, adrenal glands, pancreas, kidneys are unremarkable. Negative for urinary tract calculus or hydronephrosis. The gallbladder is present. Moderate atheromatous change. No gross evidence for bowel obstruction. Large amount of stool in the colon. No free air or free fluid. The appendix is not seen. Correlate with surgical history. No pericecal inflammation. No free air or free fluid. Status post hysterectomy. IMPRESSION: Negative for acute intra-abdominal/pelvic process. Abundant stool in the colon. Moderate atheromatous change. Stable nodule right lung base. Please refer to below Fleischner Society criteria. 2017 Fleischner Society Recommendations for Single Solid Lung Nodule Follow-Up based on size (average of long- and short-axis diameters) <6 mm Low-Risk Patient: No routine follow-up <6 mm High-Risk Patient: Optional CT at 12 months 6-8 mm Low-Risk Patient: CT at 6-[address] at 18-24 months 6-8 mm High-Risk Patient: CT at 6-[address] at 18-24 months >8 mm Low-Risk Patient: Consider CT, PET/CT or tissue sampling at 3 months >8 mm High-Risk Patient: Same as for low-risk patient These guidelines do not apply to patients younger than 35 years, immunocompromised patients, and patients with cancer. F/u in patients with significant comorbidities as clinically warranted. For lung cancer screening, adhere to Lung-RADS guidelines. Reference: Radiology. 2017 Oct; 284(1):228-43 . TECHNICAL DOCUMENTATION: Quality ID # 436: Final reports with documentation of one or more dose reduction techniques (e.g., Automated exposure control, adjustment of the mA and/or kV according to patient size, use of iterative reconstruction technique) copyright 2010 [employer]- All Rights Reserved
[2018-05-11 23:32] LABS: APPEARANCE,URINE CLOUDY; BILIRUBIN,URINE NEGATIVE (NEGATIVE); COLOR,URINE YELLOW; GLUCOSE, URINE NEGATIVE (NEGATIVE); KETONES,URINE NEGATIVE (NEGATIVE); LEUKOCYTE ESTERASE,URINE LARGE (NEGATIVE); NITRITE,URINE NEGATIVE (NEGATIVE); PROTEIN,URINE 100 mg/dL (NEGATIVE); URINE SPECIFIC GRAVITY 1.015; UROBILINOGEN,URINE NEGATIVE mg/dL (<2.0)
[2018-05-12] MEDS ORDERED: CEPHALEXIN 500 MG CAPSULE PO ONE (00:08)
[2018-05-12] MEDS ORDERED: HYDROCODONE/ACETAMINOPHEN 5-325 MG (6 TAB/ER DISP) PO PRN (00:08)
--- NOTE | 2018-05-12 00:23 | ER Document Report ---
ED General - General Chief Complaint: Abdominal Pain Stated Complaint: ABDOMINAL PAIN Time Seen by Provider: 05/11/18 21:49 Primary Care Provider: ESTUARDO OCASIO MD [Primary Care Provider] - Follow up as needed Notes: Patient is an 82-year-old female with a past medical history of bladder cancer, recurrent kidney infections, chronic kidney disease, hypertension, presents complaining of approximately 1 week of intermittent stabbing pains from her vagina radiating up into her lower abdomen. The patient reports that these symptoms are intermittent in nature, come and go without any clear exacerbating or relieving factors. States that the intensity has been increasing as time has passed as has the frequency of the pain. Denies any history of similar symptoms in the past. States when the pain is present it is quite severe. Has not seen her general physician or urologist regarding today's concerns. TRAVEL OUTSIDE OF THE [place] IN LAST 30 DAYS: No - Related Data Allergies/Adverse Reactions: morphine [Morphine] Allergy (Mild, Verified 05/11/18 18:34) Generalized Itching Past Medical History - General Information source: Patient - Social History Smoking Status: Former Smoker Chew tobacco use (# tins/day): No Frequency of alcohol use: None Drug Abuse: None Lives with: Family Family History: Reviewed & Not Pertinent Patient has suicidal ideation: No Patient has homicidal ideation: No - Past Medical History Cardiac Medical History: Reports: Hx Hypercholesterolemia, Hx Hypertension - BYSTOLIC Denies: Hx Heart Attack Pulmonary Medical History: Reports: Hx Asthma, Hx COPD Neurological Medical History: Denies: Hx Cerebrovascular Accident, Hx Seizures Endocrine Medical History: Reports: Hx Diabetes Mellitus Type 2 - ORAL HYPOGLYCEMICS Renal/ Medical History: Denies: Hx Peritoneal Dialysis GI Medical History: Denies: Hx Hepatitis, Hx Hiatal Hernia, Hx Ulcer Musculoskeletal Medical History: Reports Hx Arthritis Infectious Medical History: Denies: Hx Hepatitis Past Surgical History: Reports: Hx Hysterectomy, Hx Orthopedic Surgery - CERVICAL FUSION X 2. Denies: Hx Mastectomy, Hx Open Heart Surgery, Hx Pacemaker - Immunizations Hx Diphtheria, Pertussis, Tetanus Vaccination: Yes Review of Systems - Review of Systems Notes: Constitutional: Negative for fever. HENT: Negative for sore throat. Eyes: Negative for visual changes. Cardiovascular: Negative for chest pain. Respiratory: Negative for shortness of breath. Gastrointestinal: Positive for lower abdominal pain Genitourinary: Positive for vaginal pain, urinary hesitancy Musculoskeletal: Negative for back pain. Skin: Negative for rash. Neurological: Negative for headaches, weakness or numbness. 10 point ROS negative except as marked above and in HPI. Physical Exam - Vital signs Vitals: Temp Pulse Resp BP Pulse Ox 97.8 F 88 20 96/62 L 99 05/11/18 18:35 05/11/18 18:35 05/11/18 18:35 05/11/18 18:35 05/11/18 18:35 Interpretation: Hypotensive Notes: PHYSICAL EXAMINATION: GENERAL: Well-appearing, well-nourished and in no acute distress. HEAD: Atraumatic, normocephalic. EYES: Pupils equal round and reactive to light, extraocular movements intact, sclera anicteric, conjunctiva are normal. ENT: nares patent, oropharynx clear without exudates. Moist mucous membranes. NECK: Normal range of motion, supple without lymphadenopathy LUNGS: Breath sounds clear to auscultation bilaterally and equal. No wheezes rales or rhonchi. HEART: Regular rate and rhythm without murmurs ABDOMEN: Soft, nontender, normoactive bowel sounds. No guarding, no rebound. No masses appreciated. : No external vaginal lesions. No lesions in the vaginal introitus. Cervix without lesions. No bleeding or discharge. EXTREMITIES: Normal range of motion, no pitting or edema. No cyanosis. NEUROLOGICAL: No focal neurological deficits. Moves all extremities spontaneously and on command. PSYCH: Normal mood, normal affect. SKIN: Warm, Dry, normal turgor, no rashes or lesions noted. Course - Re-evaluation Re-evalutation: 05/12/18 00:32 Patient presents with 1-2 weeks of shooting pain from her vagina into her lower abdomen. On abdominal exam she has no focal tenderness except over the suprapubic region. No rebound or guarding any location. Labs are notable for chronic kidney dysfunction and findings on laboratories of the urinalysis consistent with a hemorrhagic cystitis versus possible postoperative changes from a cystoscopy that was performed 3-4 weeks ago. Pelvic examination unremarkable without any masses or lesions on the external vagina or in the bed all introitus. Cervix without any lesions. CT scan of the abdomen pelvis unremarkable with exception of constipation. Patient will be trialed on a course of oral antibiotics, culture has been sent of the urine. At this time will discharge with return precautions and follow-up recommendations. Verbal discharge instructions given a the bedside and opportunity for questions given. Medication warnings reviewed. Patient is in agreement with this plan and has verbalized understanding of return precautions and the need for primary care follow-up in the next 24-72 hours. - Vital Signs Vital signs: Temp Pulse Resp BP Pulse Ox 98.3 F 81 19 100/72 97 05/12/18 00:41 05/12/18 00:41 05/12/18 00:41 05/12/18 00:41 05/12/18 00:41 - Laboratory Result Diagrams: 05/11/18 22:05 05/11/18 22:05 Laboratory results interpreted by me: 05/11/18 05/11/18 22:05 22:59 Chloride 108 H BUN 34 H Creatinine 2.16 H Est GFR ( Amer) 27 L Est GFR (Non-Af Amer) 22 L Urine Protein 100 H Urine Blood LARGE H Ur Leukocyte Esterase LARGE H Discharge - Discharge Clinical Impression: Cystitis, Vaginal pain, Lower abdominal pain Chronic kidney disease Qualifiers: Chronic kidney disease stage: unspecified stage Qualified Code(s): N18.9 - Chronic kidney disease, unspecified Condition: Stable Disposition: HOME, SELF-CARE Additional Instructions: Your blood work is at your baseline with some chronic kidney dysfunction, your urine does show findings consistent with a possible infection or possibly changes related to your recent cystoscopy and ablation. Your being placed on antibiotics for the possibility that your pain could be related to a infection associated with your recent cystoscopy. Take as directed. You have also provided pain medication that she can use as needed. Please follow-up with your urologist and primary care doctor regarding today's emergency department visit. Return if you have worsening pain, fever, pass out, or have any other symptoms that are worrisome to you. Prescriptions: Cephalexin Monohydrate [Keflex 500 mg Capsule] 500 mg PO Q6H 7 Days capsule Referrals: ESTUARDO OCASIO MD [Primary Care Provider] - Follow up as needed
[2018-05-12 00:42] VITALS: BP 100/72
== END 2018-05-12 00:41 | disposition home or self-care (01) ==
LOC: ER 18:21
DX: N30.90 Cystitis, unspecified without hematuria (principal); R10.30 Lower abdominal pain, unspecified; R10.2 Pelvic and perineal pain; N18.9 Chronic kidney disease, unspecified; E11.22 Type 2 diabetes mellitus with diabetic chronic kidney disease; I12.9 Hypertensive chronic kidney disease with stage 1 through stage 4 chronic kidney disease, or unspecified chronic kidney disease; E78.00 Pure hypercholesterolemia, unspecified; J44.9 Chronic obstructive pulmonary disease, unspecified; Z90.710 Acquired absence of both cervix and uterus; Z88.6 Allergy status to analgesic agent; Z85.51 Personal history of malignant neoplasm of bladder; Z98.1 Arthrodesis status; Z79.84 Long term (current) use of oral hypoglycemic drugs
CPT/HCPCS: 85025; 99284; 36415; 87086; 87088; 80053; 81001; 74176; A9270 ×4; S0119

== ENCOUNTER → 2018-06-18 | Outpatient (CLI) | payer MEDICARE, MEDICAID ==
--- NOTE | 2018-06-18 16:30 | RADIOLOGY REPORT (SQ) ---
EXAM DESCRIPTION: CERV SP 4 OR 5 VIEWS COMPLETED DATE/TIME: 06/18/2018 2:11 pm REASON FOR STUDY: M54.2 M54.2 CERVICALGIA R10.2 PELVIC AND PERINEAL PAIN COMPARISON: 2009 NUMBER OF VIEWS: 6 views including obliques. TECHNIQUE: AP, lateral, obliques and odontoid radiographic images acquired of the cervical spine. LIMITATIONS: None. FINDINGS: Alignment is stable. Status post ACD C4-5 and interlaminar fusion C4 through C7. Anterio r plate C6-7 has been removed. Neural foraminal stenosis C5-6 and C6-7 bilaterally. Prevertebral so ft tissues are normal. IMPRESSION: Postsurgical and chronic degenerative changes. TECHNICAL DOCUMENTATION: JOB ID: [id number] [email or web address]- All Rights Reserved Reading location - IP/workstation name: [email or web address]
--- NOTE | 2018-06-18 16:38 | RADIOLOGY REPORT (SQ) ---
EXAM DESCRIPTION: L SPINE WHOLE COMPLETED DATE/TIME: 06/18/2018 2:11 pm REASON FOR STUDY: M54.2 CERVICALGIA R10.2 PELVIC AND PERINEAL PAIN M54.2 CERVICALGIA R10.2 PELVIC AND PERINEAL PAIN COMPARISON: 02/19/2014 NUMBER OF VIEWS: Five views including obliques. TECHNIQUE: AP, lateral, oblique, and sacral radiographic images acquired of the lumbar spine. LIMITATIONS: None. FINDINGS: MINERALIZATION: Osteopenia. SEGMENTATION: Transitional vertebra. ALIGNMENT: Unchanged convex right scoliosis. VERTEBRAE: Old kyphoplasty transitional vertebra. No acute compression fracture. DISCS: Multilevel disc space narrowing with osteophytes. POSTERIOR ELEMENTS: Pedicles and facets are intact. No pars defect or posterior arch defects. Facet arthropathy is present. HARDWARE: None in the spine. PARASPINAL SOFT TISSUES: Normal. PELVIS: Intact as visualized. No fractures or worrisome bone lesions. SI joints intact. OTHER: No other significant finding. IMPRESSION: Spondylosis. Chronic compression fracture. TECHNICAL DOCUMENTATION: JOB ID: [id number] [employer]- All Rights Reserved Reading location - IP/workstation name: [email or web address]
== END ==
LOC: RAD 13:13
PROVIDERS: ATTEND Physician Assistant
DX: M54.2 Cervicalgia (principal); R10.2 Pelvic and perineal pain; M48.56XD Collapsed vertebra, not elsewhere classified, lumbar region, subsequent encounter for fracture with routine healing; M47.896 Other spondylosis, lumbar region; M47.892 Other spondylosis, cervical region
CPT/HCPCS: 72050; 72110

== ENCOUNTER → 2018-06-18 | Outpatient (CLI) | payer MEDICARE, MEDICAID ==
[2018-06-18 15:25] LABS: ANION GAP 9 (5-19); BLOOD UREA NITROGEN 35 mg/dL (7-20); CALCIUM 9.3 mg/dL (8.4-10.2); CARBON DIOXIDE 24 mmol/L (22-30); CHLORIDE 108 mmol/L (98-107); GLUCOSE 113 mg/dL (75-110); POTASSIUM 4.5 mmol/L (3.6-5.0); SODIUM 141.3 mmol/L (137-145)
== END ==
LOC: OD 14:25
PROVIDERS: ATTEND Family Medicine
DX: E87.5 Hyperkalemia (principal)
CPT/HCPCS: 36415; 80048

== ENCOUNTER → 2018-07-06 | Outpatient (CLI) | payer MEDICARE, MEDICAID ==
[2018-07-06 10:45] LABS: HEMATOCRIT 34.2 % (36.0-47.0); HEMOGLOBIN 11.5 g/dL (12.0-15.5); MEAN CORPUSCULAR HEMOGLOBIN 32.1 pg (27.0-33.4); MEAN CORPUSCULAR HGB CONC 33.7 g/dL (32.0-36.0); MEAN CORPUSCULAR VOLUME 95 fl (80-97); PLATELET COUNT 185 10^3/uL (150-450); RED BLOOD COUNT 3.58 10^6/uL (3.72-5.28); RED CELL DISTRIBUTION WIDTH 12.8 % (11.5-14.0); WHITE BLOOD COUNT 7.9 10^3/uL (4.0-10.5)
[2018-07-06 10:48] LABS: APPEARANCE,URINE CLOUDY; BILIRUBIN,URINE NEGATIVE (NEGATIVE); COLOR,URINE YELLOW; GLUCOSE, URINE NEGATIVE (NEGATIVE); KETONES,URINE NEGATIVE (NEGATIVE); LEUKOCYTE ESTERASE,URINE MODERATE (NEGATIVE); NITRITE,URINE NEGATIVE (NEGATIVE); PROTEIN,URINE 30 mg/dL (NEGATIVE); UROBILINOGEN,URINE NEGATIVE mg/dL (<2.0)
[2018-07-06 11:20] LABS: ANION GAP 10 (5-19); BLOOD UREA NITROGEN 37 mg/dL (7-20); CALCIUM 9.4 mg/dL (8.4-10.2); CARBON DIOXIDE 24 mmol/L (22-30); CHLORIDE 106 mmol/L (98-107); GLUCOSE 105 mg/dL (75-110); PHOSPHORUS 4.2 mg/dL (2.5-4.5); SODIUM 140.4 mmol/L (137-145)
== END ==
LOC: OD 10:01
PROVIDERS: ATTEND Physician Assistant Medical
DX: E11.22 Type 2 diabetes mellitus with diabetic chronic kidney disease (principal); I12.9 Hypertensive chronic kidney disease with stage 1 through stage 4 chronic kidney disease, or unspecified chronic kidney disease; N18.2 Chronic kidney disease, stage 2 (mild); E87.5 Hyperkalemia
CPT/HCPCS: 36415; 80048; 81001; 83970; 84100; 85027

== ENCOUNTER → 2018-07-11 | Outpatient (CLI) | payer MEDICARE, MEDICAID | LOC: OD 10:07 | PROVIDERS: ATTEND Internal Medicine Nephrology | DX: E87.5 Hyperkalemia (principal) | CPT/HCPCS: 36415; 84132 ==

== ENCOUNTER → 2018-07-18 | Outpatient (CLI) | payer MEDICARE, MEDICAID ==
--- NOTE | 2018-07-18 23:32 | XCELERA REPORT ---
[address] [address] Transthoracic Echocardiogram Report Name: NICOLETTE COHEN Age: 82 yrs Gender: Female : 1935 Patient Status: Outpatient Patient Location: RAD Study Date: 07/18/2018 10:12 AM Height: 61 in Weight: 174 lb BSA: 1.8 m2 Procedure: A two-dimensional transthoracic echocardiogram with color flow Doppler was performed. Study Quality: Fair. Reason For Study: CHEST PAIN History: CHEST PAIN. Ordering Physician: BERNADETTE BLOOD Performed By: Demarco Venegas Interpretation Summary The left ventricle is normal in size. There is normal left ventricular wall thickness. LV EF is 65% Left ventricular systolic function is normal. Doppler measurements suggest normal left ventricular diastolic function The left ventricular wall motion is normal. There is no thrombus. No ASD , VSD . or PFO seen. The right ventricle is normal in size and function. The right atrium is normal. The left atrial size is normal. There is no evidence of mitral valve prolapse. There is no vegetation seen on the mitral valve. There is no mitral valve stenosis. Mild to moderate eccentric poseriorly directed MR jet. There is no aortic valve stenosis There is no LVOT obstruction. No aortic regurgitation is present. There is no tricuspid stenosis. There is a trace to mild amount of tricuspid regurgitation There is mild pulmonary hypertension by echo RVSP is 39 to 44 mm of Hg , with RA mean of 5 to 10. There is no pulmonic valvular stenosis. There is a trace amount of pulmonic regurgitation The aortic root is normal size. The inferior vena cava appeared normal and decreased > 50% with respiration (RAP 5-10 mmHg) There is no pericardial effusion. MMode/2D Measurements & Calculations RVDd: 2.9 cm LVIDd: 5.1 cm FS: 36.8 % Ao root diam: 2.7 cm IVSd: 1.0 cm LVIDs: 3.2 cm EDV(Teich): 121.6 ml Ao root area: 5.7 cm2 LVPWd: 1.1 cm ESV(Teich): 40.9 ml LA dimension: 3.2 cm EF(Teich): 66.3 % Doppler Measurements & Calculations MV E max yousif: MV P1/2t max yousif: Ao V2 max: LV V1 max P.5 cm/sec 93.4 cm/sec 108.2 cm/sec 3.5 mmHg MV A max yousif: MV P1/2t: 98.4 msec Ao max PG: LV V1 max: 59.8 cm/sec MVA(P1/2t): 2.2 cm2 4.7 mmHg 93.7 cm/sec MV E/A: 1.5 MV dec slope: LV dP/dt: 1515 mmHg/s 277.9 cm/sec2 MV dec time: 0.23 sec PA V2 max: PI end-d yousif: TR max yousif: MV P1/2t-pr_phl: 83.9 cm/sec 119.4 cm/sec 290.5 cm/sec 98.4 msec PA max PG: TR max P.8 mmHg 33.8 mmHg Left Ventricle The left ventricle is normal in size. There is normal left ventricular wall thickness. LV EF is 65%. Left ventricular systolic function is normal. Doppler measurements suggest normal left ventricular diastolic function. The left ventricular wall motion is normal. There is no thrombus. No ASD , VSD . or PFO seen. Right Ventricle The right ventricle is normal in size and function. Atria The right atrium is normal. The left atrial size is normal. Mitral Valve There is no evidence of mitral valve prolapse. There is no vegetation seen on the mitral valve. There is no mitral valve stenosis. Mild to moderate eccentric poseriorly directed MR jet. Aortic Valve There is no aortic valvular vegetation. There is no aortic valve stenosis. There is no LVOT obstruction. No aortic regurgitation is present. Tricuspid Valve There is no tricuspid stenosis. There is a trace to mild amount of tricuspid regurgitation. There is mild pulmonary hypertension by echo. RVSP is 39 to 44 mm of Hg , with RA mean of 5 to 10. Pulmonic Valve There is no pulmonic valvular stenosis. There is a trace amount of pulmonic regurgitation. Great Vessels The aortic root is normal size. The inferior vena cava appeared normal and decreased > 50% with respiration (RAP 5-10 mmHg). Effusions There is no pericardial effusion. : BERNADETTE BLOOD > Bernadette Blood
== END ==
LOC: RAD 09:29
PROVIDERS: ATTEND Specialist
DX: R07.9 Chest pain, unspecified (principal)
CPT/HCPCS: 93306

== ENCOUNTER → 2018-09-27 | Outpatient (CLI) | payer MEDICARE, MEDICAID ==
[2018-09-27 12:01] LABS: APPEARANCE,URINE SLIGHTLY-CLOUDY; BILIRUBIN,URINE NEGATIVE (NEGATIVE); COLOR,URINE YELLOW; GLUCOSE, URINE NEGATIVE (NEGATIVE); KETONES,URINE NEGATIVE (NEGATIVE); LEUKOCYTE ESTERASE,URINE TRACE (NEGATIVE); NITRITE,URINE NEGATIVE (NEGATIVE); PROTEIN,URINE NEGATIVE (NEGATIVE); URINE SPECIFIC GRAVITY 1.018; UROBILINOGEN,URINE NEGATIVE mg/dL (<2.0)
[2018-09-27 12:20] LABS: ANION GAP 7 (5-19); BLOOD UREA NITROGEN 33 mg/dL (7-20); CALCIUM 9.2 mg/dL (8.4-10.2); CARBON DIOXIDE 28 mmol/L (22-30); CHLORIDE 104 mmol/L (98-107); GLUCOSE 129 mg/dL (75-110); PHOSPHORUS 4.2 mg/dL (2.5-4.5); POTASSIUM 5.1 mmol/L (3.6-5.0); SODIUM 139.3 mmol/L (137-145)
== END ==
LOC: OD 11:13
PROVIDERS: ATTEND Internal Medicine Nephrology
DX: N18.3 Chronic kidney disease, stage 3 (moderate) (principal)
CPT/HCPCS: 36415; 80048; 81001; 83735; 83970; 84100

== ENCOUNTER → 2018-10-01 | Outpatient (CLI) | payer MEDICARE, MEDICAID ==
[2018-10-01 11:36] LABS: HEMATOCRIT 36.2 % (36.0-47.0); MEAN CORPUSCULAR HEMOGLOBIN 31.4 pg (27.0-33.4); MEAN CORPUSCULAR HGB CONC 33.3 g/dL (32.0-36.0); MEAN CORPUSCULAR VOLUME 95 fl (80-97); PLATELET COUNT 199 10^3/uL (150-450); RED BLOOD COUNT 3.82 10^6/uL (3.72-5.28); RED CELL DISTRIBUTION WIDTH 13.3 % (11.5-14.0); WHITE BLOOD COUNT 8.1 10^3/uL (4.0-10.5)
== END ==
LOC: OD 10:50
PROVIDERS: ATTEND Internal Medicine Nephrology
DX: N18.3 Chronic kidney disease, stage 3 (moderate) (principal)
CPT/HCPCS: 36415; 85027

== ENCOUNTER 2019-01-01 11:40 | Emergency (ER) | payer MEDICARE, MEDICAID ==
[2019-01-01 11:46] VITALS: BP 135/80
--- NOTE | 2019-01-01 12:14 | ER Document Report ---
ED Medical Screen (RME) - General Chief Complaint: Hip Pain Stated Complaint: FELL Time Seen by Provider: 01/01/19 12:06 Primary Care Provider: Hannah CADENA MD [Primary Care Provider] - Follow up as needed TRAVEL OUTSIDE OF THE [place] IN LAST 30 DAYS: No - HPI Notes: 01/01/19 12:11 Patient is an 83-year-old female with a history of hypertension, type 2 diabetes, chronic back pain who presents for 2 concerns. The first is left lateral buttock pain and left elbow pain after she fell off the couch 4 days ago. Patient states that she has been ambulating since then. She has not noticed any bruising. Patient also complains of left lower to left mid abdominal pain that started over the past 1 to 2 days with occasional loose stool. Patient states that she has been urinating a little more than usual as well. No melena or hematochezia. Denies [place], fever, neck pain, URI, CP, SOB, dysuria, or rash. I have treated and performed a rapid initial assessment of this patient. A comprehensive ED assessment and evaluation of the patient, analysis of test results and completion of medical decision making process will be conducted by additional ED providers. PHYSICAL EXAMINATION: GENERAL: Well-appearing, well-nourished and in no acute distress. A&Ox4. Answers questions appropriately. LUNGS: Breath sounds clear to auscultation bilaterally and equal. No wheezes r ales or rhonchi. HEART: Regular rate and rhythm ABDOMEN: Soft, nondistended abdomen. No guarding, no rebound. Normal bowel sounds present. No CVA tenderness bilaterally. + LLQ tenderness and mid abd tenderness (cannot elicit thorough abd exam w/o bed, however). MS: + tenderness left lateral buttock/pelvis area, but pt able to ambulate in room w/o difficulty. + mild tenderness left elbow. FROM. N/V intact distal. - Related Data Allergies/Adverse Reactions: morphine [Morphine] Allergy (Mild, Verified 01/01/19 11:41) Generalized Itching Past Medical History - Past Medical History Cardiac Medical History: Reports: Hx Hypercholesterolemia, Hx Hypertension - BYSTOLIC Denies: Hx Heart Attack Pulmonary Medical History: Reports: Hx Asthma, Hx COPD Neurological Medical History: Denies: Hx Cerebrovascular Accident, Hx Seizures Endocrine Medical History: Reports: Hx Diabetes Mellitus Type 2 - ORAL HYPOGLYCEMICS Renal/ Medical History: Denies: Hx Peritoneal Dialysis GI Medical History: Denies: Hx Hepatitis, Hx Hiatal Hernia, Hx Ulcer Musculoskeltal Medical History: Reports Hx Arthritis Infectious Medical History: Denies: Hx Hepatitis Past Surgical History: Reports: Hx Hysterectomy, Hx Orthopedic Surgery - CERVICAL FUSION X 2. Denies: Hx Mastectomy, Hx Open Heart Surgery, Hx Pacemaker - Immunizations Hx Diphtheria, Pertussis, Tetanus Vaccination: Yes Physical Exam - Vital signs Vitals: Temp Pulse Resp BP Pulse Ox 98.1 F 81 18 135/80 H 96 01/01/19 11:44 01/01/19 11:44 01/01/19 11:44 01/01/19 11:44 01/01/19 11:44 Course - Vital Signs Vital signs: Temp Pulse Resp BP Pulse Ox 98.1 F 81 18 135/80 H 96 01/01/19 11:44 01/01/19 11:44 01/01/19 11:44 01/01/19 11:44 01/01/19 11:44 Doctor's Discharge - Discharge Referrals: Hannah CADENA MD [Primary Care Provider] - Follow up as needed
[2019-01-01] MEDS ORDERED: ACETAMINOPHEN 325 MG TABLET PO ONE (12:16)
[2019-01-01 13:15] LABS: ABSOLUTE BASOPHILS # (AUTO) 0.1 10^3/uL (0.0-0.2); ABSOLUTE EOSINOPHILS # (AUTO) 0.1 10^3/uL (0.0-0.6); ABSOLUTE LYMPHOCYTES (AUTO) 0.9 10^3/uL (0.5-4.7); ABSOLUTE MONOCYTES (AUTO) 0.6 10^3/uL (0.1-1.4); ABSOLUTE NEUT (AUTO) 6.3 10^3/uL (1.7-8.2); BASOPHILS % (AUTO) 0.8 % (0-2); EOSINOPHILS % (AUTO) 0.7 % (0-6); HEMATOCRIT 38.1 % (36.0-47.0); HEMOGLOBIN 12.6 g/dL (12.0-15.5); LYMPHOCYTES % (AUTO) 11.7 % (13-45); MEAN CORPUSCULAR HEMOGLOBIN 30.7 pg (27.0-33.4); MEAN CORPUSCULAR HGB CONC 33.1 g/dL (32.0-36.0); MEAN CORPUSCULAR VOLUME 93 fl (80-97); PLATELET COUNT 161 10^3/uL (150-450); RED CELL DISTRIBUTION WIDTH 12.9 % (11.5-14.0); SEGMENTED NEUTROPHILS % (AUTO) 79.8 % (42-78); TOTAL CELLS COUNTED % (AUTO) 100 %; WHITE BLOOD COUNT 7.9 10^3/uL (4.0-10.5)
[2019-01-01 13:30] LABS: ALBUMIN 4.1 g/dL (3.5-5.0); ALKALINE PHOSPHATASE 97 U/L (38-126); ANION GAP 8 (5-19); ASPARTATE AMINO TRANSFERASE 36 U/L (14-36); BILIRUBIN,DIRECT 0.2 mg/dL (0.0-0.4); BILIRUBIN,TOTAL 0.4 mg/dL (0.2-1.3); BLOOD UREA NITROGEN 25 mg/dL (7-20); CALCIUM 9.5 mg/dL (8.4-10.2); CARBON DIOXIDE 25 mmol/L (22-30); CHLORIDE 104 mmol/L (98-107); GLUCOSE 112 mg/dL (75-110); POTASSIUM 4.8 mmol/L (3.6-5.0); TOTAL PROTEIN 6.7 g/dL (6.3-8.2)
[2019-01-01 13:53] LABS: APPEARANCE,URINE CLEAR; BILIRUBIN,URINE NEGATIVE (NEGATIVE); COLOR,URINE YELLOW; GLUCOSE, URINE NEGATIVE (NEGATIVE); KETONES,URINE NEGATIVE (NEGATIVE); LEUKOCYTE ESTERASE,URINE NEGATIVE (NEGATIVE); NITRITE,URINE NEGATIVE (NEGATIVE); PROTEIN,URINE NEGATIVE (NEGATIVE); URINE SPECIFIC GRAVITY 1.014; UROBILINOGEN,URINE NEGATIVE mg/dL (<2.0)
--- NOTE | 2019-01-01 14:27 | RADIOLOGY REPORT (SQ) ---
EXAM DESCRIPTION: CT ABD/PELVIS WITH IV ONLY COMPLETED DATE/TIME: 01/01/2019 2:14 pm REASON FOR STUDY: LLQ/abd pain and Lt low back/pelvic pain s/p fall COMPARISON: 05/11/2018 TECHNIQUE: CT scan of the abdomen and pelvis performed using helical scanning technique with dynamic intravenous contrast injection. No oral contrast. Images reviewed with lung, soft tissue, and bone windows. Reconstructed coronal and sagittal MPR images reviewed. Delayed images for evaluation of the urinary system also acquired. All images stored on PACS. All CT scanners at this facility use dose modulation, iterative reconstruction, and/or weight based d osing when appropriate to reduce radiation dose to as low as reasonably achievable (ALARA). [facility]: Dose Right [facility]: CareDose [facility]: Dose Right [facility]: Teradose 4D [facility]: [employer] CONTRAST TYPE AND DOSE: contrast/concentration: Isovue 350.00 mg/ml; Total Contrast Delivered: 83.0 ml; Total Saline Delivered: 69.0 ml RENAL FUNCTION: BUN 25, creatinine 1.4 RADIATION DOSE: CT Rad equipment meets quality standard of care and radiation dose reduction techniq ues were employed. CTDIvol: 9.8 - 13.9 mGy. DLP: 1120 mGy-cm.. LIMITATIONS: None. FINDINGS: LOWER CHEST: No significant findings. No nodules or infiltrates. LIVER: Mild hepatomegaly. Liver measures just under 18 cm in cranial caudal dimensions. SPLEEN: Normal size. No focal lesions. PANCREAS: No masses. No significant calcifications. No adjacent inflammation or peripancreatic fluid collections. Pancreatic duct not dilated. GALLBLADDER: No identified stones by CT criteria. No inflammatory changes to suggest cholecystitis. ADRENAL GLANDS: No significant masses or asymmetry. RIGHT KIDNEY AND URETER: No solid masses. No significant calcifications. No hydronephrosis or hyd roureter. LEFT KIDNEY AND URETER: No solid masses. No significant calcifications. No hydronephrosis or hydr oureter. AORTA AND VESSELS: No aneurysm. No dissection. Renal arteries, SMA, celiac without stenosis. RETROPERITONEUM: No retroperitoneal adenopathy, hemorrhage or masses. BOWEL AND PERITONEAL CAVITY: No masses or inflammatory changes. No free fluid or peritoneal masses. APPENDIX: Not visualized. PELVIS: No mass. No free fluid. Normal bladder. ABDOMINAL WALL: No masses. No hernias. BONES: No acute findings. There are degenerative changes in the lumbar spine. Prior kyphoplasty at T12. OTHER: No other significant finding. IMPRESSION: NO SIGNIFICANT OR ACUTE FINDING IN THE ABDOMEN OR PELVIS ON CT SCAN WITH IV CONTRAST. TECHNICAL DOCUMENTATION: JOB ID: [id number] Quality ID # [id number]: Final reports with documentation of one or more dose reduction techniques (e.g., Au tomated exposure control, adjustment of the mA and/or kV according to patient size, use of iterative reconstruction technique) 2010 [employer]- All Rights Reserved Reading location - IP/workstation name: [email or web address]
--- NOTE | 2019-01-01 15:46 | RADIOLOGY REPORT (SQ) ---
EXAM DESCRIPTION: HIP LEFT AP/LATERAL COMPLETED DATE/TIME: 01/01/2019 3:35 pm REASON FOR STUDY: fall/pain COMPARISON: None. NUMBER OF VIEWS: Two views. TECHNIQUE: AP and frog-leg view of the left hip. LIMITATIONS: None. FINDINGS: MINERALIZATION: Normal. LEFT HIP: No fracture or dislocation. No worrisome bone lesions. OPPOSITE HIP: No fracture or dislocation. No worrisome bone lesions. SOFT TISSUES: No findings. OTHER: No other significant finding. IMPRESSION: NEGATIVE STUDY OF THE LEFT HIP. NO RADIOGRAPHIC EVIDENCE OF ACUTE INJURY. COMMENT: Pelvic fractures are often occult on plain radiographs. If strong clinical suspicion for f racture, recommend CT or MR. TECHNICAL DOCUMENTATION: JOB ID: [id number] [employer] All Rights Reserved Reading location - IP/workstation name: [email or web address]
--- NOTE | 2019-01-01 15:47 | RADIOLOGY REPORT (SQ) ---
EXAM DESCRIPTION: T SPINE AP/LAT COMPLETED DATE/TIME: 01/01/2019 3:35 pm REASON FOR STUDY: fall/pain COMPARISON: 09/10/2008 NUMBER OF VIEWS: Two views. TECHNIQUE: AP and lateral radiographic images acquired of the thoracic spine. LIMITATIONS: None. FINDINGS: MINERALIZATION: Osteopenia. ALIGNMENT: Mild scoliosis with concavity toward the right in the lower lumbar spine. VERTEBRAE: No fracture or focal lesion. Prior L1 kyphoplasty. DISCS: Multilevel disc space narrowing with osteophytes. HARDWARE: None in the spine. MEDIASTINUM AND SOFT TISSUES: Normal heart size and aortic contour. No soft tissue abnormality. VISUALIZED LUNG BRAVO: Clear. OTHER: There are postsurgical changes in the cervical spine. IMPRESSION: SPONDYLOSIS WITHOUT BONE LESION OR FRACTURE. TECHNICAL DOCUMENTATION: JOB ID: [id number] [employer]- All Rights Reserved Reading location - IP/workstation name: [email or web address]
--- NOTE | 2019-01-01 15:48 | RADIOLOGY REPORT (SQ) ---
EXAM DESCRIPTION: L SPINE WHOLE COMPLETED DATE/TIME: 01/01/2019 3:35 pm REASON FOR STUDY: fall/pain COMPARISON: 06/18/2018 NUMBER OF VIEWS: Five views including obliques. TECHNIQUE: AP, lateral, oblique, and sacral radiographic images acquired of the lumbar spine. LIMITATIONS: None. FINDINGS: MINERALIZATION: Osteopenia. SEGMENTATION: Normal. No transitional anatomy. ALIGNMENT: Normal. VERTEBRAE: Prior L1 kyphoplasty. There is stable compression of L2. DISCS: Multilevel disc space narrowing with osteophytes. POSTERIOR ELEMENTS: Pedicles and facets are intact. No pars defect or posterior arch defects. Facet arthropathy is present. HARDWARE: None in the spine. PARASPINAL SOFT TISSUES: Normal. PELVIS: Intact as visualized. No fractures or worrisome bone lesions. SI joints intact. OTHER: No other significant finding. IMPRESSION: Osteopenia. Multilevel degenerative disease. Prior L1 kyphoplasty and chronic L2 compr ession deformity. TECHNICAL DOCUMENTATION: JOB ID: [id number] [employer]- All Rights Reserved Reading location - IP/workstation name: [email or web address]
--- NOTE | 2019-01-01 15:59 | ER Document Report ---
ED General - General Chief Complaint: Hip Pain Stated Complaint: FELL Time Seen by Provider: 01/01/19 12:06 Primary Care Provider: Hannah CADENA MD [ACTIVE STAFF] - Follow up as needed Information source: Patient TRAVEL OUTSIDE OF THE [place] IN LAST 30 DAYS: No - HPI Notes: Patient states she came to the hospital today due to having pain throughout her body. She states she had a burning from her chest down to her feet. She also states that approximately 4 to 5 days ago she was having a bad dream and fell out of bed. At that time she fell on her left hip. She says since that time she has had some left hip pain some abdominal pain some left rib pain as well as low back pain. All of these pains are worse with movement or exertion and kwasi r with rest. They are all moderate and intermittent. They are all and aching sensation. She has had no significant shortness of breath or cough. No vomiting. No diarrhea. No problems with urination. She states she is able to ambulate but it is painful. This pain does radiate throughout her body as mentioned above - Related Data Allergies/Adverse Reactions: morphine [Morphine] Allergy (Mild, Verified 01/01/19 11:41) Generalized Itching Past Medical History - General Information source: Patient - Social History Smoking Status: Former Smoker Frequency of alcohol use: None Drug Abuse: None Family History: Reviewed & Not Pertinent Patient has suicidal ideation: No Patient has homicidal ideation: No - Medical History Medical History: Other - Bladder cancer - Past Medical History Cardiac Medical History: Reports: Hx Hypercholesterolemia, Hx Hypertension - BYSTOLIC Denies: Hx Heart Attack Pulmonary Medical History: Reports: Hx Asthma, Hx COPD Neurological Medical History: Denies: Hx Cerebrovascular Accident, Hx Seizures Endocrine Medical History: Reports: Hx Diabetes Mellitus Type 2 - ORAL HYPOGLYCEMICS Renal/ Medical History: Denies: Hx Peritoneal Dialysis GI Medical History: Denies: Hx Hepatitis, Hx Hiatal Hernia, Hx Ulcer Musculoskeletal Medical History: Reports Hx Arthritis Infectious Medical History: Denies: Hx Hepatitis Past Surgical History: Reports: Hx Hysterectomy, Hx Orthopedic Surgery - CERVICAL FUSION X 2. Denies: Hx Mastectomy, Hx Open Heart Surgery, Hx Pacemaker - Immunizations Hx Diphtheria, Pertussis, Tetanus Vaccination: Yes Review of Systems - Review of Systems Constitutional: Malaise, Weakness. denies: Chills, Fever Cardiovascular: Chest pain. denies: Dizziness Respiratory: denies: Cough, Short of breath Gastrointestinal: Abdominal pain. denies: Vomiting -: Yes All other systems reviewed and negative Physical Exam - Vital signs Vitals: Temp Pulse Resp BP Pulse Ox 98.1 F 81 18 135/80 H 96 01/01/19 11:44 01/01/19 11:44 01/01/19 11:44 01/01/19 11:44 01/01/19 11:44 Interpretation: Normal - General General appearance: Appears well, Alert - HEENT Head: Normocephalic, Atraumatic Eyes: Normal Pupils: PERRL - Respiratory Respiratory status: No respiratory distress Chest status: Nontender Breath sounds: Normal Chest palpation: Normal - Cardiovascular Rhythm: Regular Heart sounds: Normal auscultation Murmur: No - Abdominal Inspection: Normal Distension: No distension Bowel sounds: Normal Tenderness: Tender - Mild diffuse abdominal tenderness to palpation. No peritoneal signs. Organomegaly: No organomegaly - Back Back: Normal, Tender - T-spine and L-spine are diffusely tender to palpation but there are no step-offs or deformities. - Extremities General upper extremity: Normal inspection, Nontender, Normal color, Normal ROM, Normal temperature General lower extremity: Normal inspection, Nontender, Normal color, Normal ROM, Normal temperature, Normal weight bearing, Other - I can fully range the left hip without tenderness. No: Rufino's sign - Neurological Neuro grossly intact: Yes Cognition: Normal Orientation: AAOx4 [place] Coma Scale Eye Opening: Spontaneous [place] Coma Scale Verbal: Oriented [place] Coma Scale Motor: Obeys Commands [place] Coma Scale Total: 15 Speech: Normal Motor strength normal: LUE, RUE, LLE, RLE Sensory: Normal - Psychological Associated symptoms: Normal affect, Normal mood - Skin Skin Temperature: Warm Skin Moisture: Dry Skin Color: Normal Course - Re-evaluation Re-evalutation: 01/01/19 15:57 Patient rechecked is now and she is stable. Vital signs are unremarkable. Patient still has the tenderness to palpation in the different areas as mentioned above which include back and left hip. However imaging shows no evidence of acute fracture. I believe patient is stable for discharge home to follow-up with her physician - Vital Signs Vital signs: Temp Pulse Resp BP Pulse Ox 98.1 F 81 18 135/80 H 96 01/01/19 11:44 01/01/19 11:44 01/01/19 11:44 01/01/19 11:44 01/01/19 11:44 - Laboratory Result Diagrams: 01/01/19 13:05 01/01/19 13:05 Laboratory results interpreted by me: 01/01/19 01/01/19 13:05 13:05 Lymph % (Auto) 11.7 L Seg Neutrophils % 79.8 H BUN 25 H Creatinine 1.49 H Est GFR ( Amer) 41 L Est GFR (MDRD) Non-Af 34 L Glucose 112 H Lipase 356.4 H - Diagnostic Test Radiology reviewed: Image reviewed, Reports reviewed Discharge - Discharge Clinical Impression: Upper abdominal pain Fall Qualifiers: Encounter type: initial encounter Qualified Code(s): W19.XXXA - Unspecified fall, initial encounter Low back pain Qualifiers: Chronicity: acute Back pain laterality: midline Sciatica presence: without sciatica Qualified Code(s): M54.5 - Low back pain Contusion of right hip Qualifiers: Encounter type: initial encounter Qualified Code(s): S70.01XA - Contusion of right hip, initial encounter Condition: Stable Disposition: HOME, SELF-CARE Instructions: Abdominal Pain ([facility]), Oral Narcotic Medication ([facility]) Additional Instructions: Please call your doctor as soon as possible to arrange follow-up Prescriptions: Tramadol HCl [Ultram] 50 mg PO Q6 PRN 3 Days #12 tablet PRN Reason: Referrals: Hannah CADENA MD [ACTIVE STAFF] - Follow up as needed
[2019-01-01] MEDS ORDERED: HYDROCODONE/ACETAMINOPHEN 5-325 MG TABLET PO ONE (16:42)
== END 2019-01-01 17:23 | disposition home or self-care (01) ==
LOC: ER 11:40
DX: S70.01XA Contusion of right hip, initial encounter (principal); M25.552 Pain in left hip; M54.5 Low back pain; R10.10 Upper abdominal pain, unspecified; R07.81 Pleurodynia; R10.817 Generalized abdominal tenderness; W06.XXXA Fall from bed, initial encounter; Y93.84 Activity, sleeping; R53.81 Other malaise; R53.1 Weakness; I10 Essential (primary) hypertension; J44.9 Chronic obstructive pulmonary disease, unspecified; E11.9 Type 2 diabetes mellitus without complications; Z87.891 Personal history of nicotine dependence; Z88.5 Allergy status to narcotic agent
CPT/HCPCS: 36415; 83690; 85025; 80053; 81001; 73502; 72110; 72070; 74177; A9270 ×2; 99284

== ENCOUNTER → 2019-03-11 | Outpatient (CLI) | payer MEDICARE, MEDICAID ==
[2019-03-11 10:40] LABS: ANION GAP 7 (5-19); BLOOD UREA NITROGEN 20 mg/dL (7-20); CALCIUM 9.1 mg/dL (8.4-10.2); CARBON DIOXIDE 25 mmol/L (22-30); CHLORIDE 106 mmol/L (98-107); GLUCOSE 99 mg/dL (75-110); POTASSIUM 5.6 mmol/L (3.6-5.0)
== END ==
LOC: OD 09:24
PROVIDERS: ATTEND Family Medicine
DX: E87.5 Hyperkalemia (principal)
CPT/HCPCS: 36415; 80048

== ENCOUNTER → 2019-03-13 | Outpatient (CLI) | payer MEDICARE, MEDICAID ==
[2019-03-13 10:41] LABS: ANION GAP 9 (5-19); BLOOD UREA NITROGEN 23 mg/dL (7-20); CALCIUM 8.8 mg/dL (8.4-10.2); CARBON DIOXIDE 25 mmol/L (22-30); CHLORIDE 104 mmol/L (98-107); GLUCOSE 102 mg/dL (75-110); POTASSIUM 4.3 mmol/L (3.6-5.0)
== END ==
LOC: OD 09:21
PROVIDERS: ATTEND Family Medicine
DX: E87.5 Hyperkalemia (principal)
CPT/HCPCS: 36415; 80048

== ENCOUNTER → 2019-03-20 | Outpatient (CLI) | payer MEDICARE, MEDICAID ==
--- NOTE | 2019-03-20 13:48 | RADIOLOGY REPORT (SQ) ---
EXAM DESCRIPTION: BARIUM SWALLOW ESOPHAGUS COMPLETED DATE/TIME: 03/20/2019 9:36 am REASON FOR STUDY: K21.9 GASTRO-ESOPHAGEAL REFLUX DISEASE WITHOUT ESOPHAGITIS K21.9 GASTRO-ESOPHAGEA L REFLUX DISEASE WITHOUT ESOPHAGITIS COMPARISON: Cervical spine films 06/18/2018 CT chest 12/04/2017 Barium swallow 12/25/2013 TECHNIQUE: Under fluoroscopic guidance, patient ingested thick barium and effervescent crystals. Flu oroscopic spot images and routine radiographic images acquired and stored on PACS. 12 MM BARIUM TABLET GIVEN: Yes. 12 mm barium tablet paused in a small hiatal hernia at the GE junction above the hemidiaphragms for 1 0 minutes before dropping through into the stomach. LIMITATIONS: None. FLUOROSCOPY TIME: 2 minutes 37 seconds 9 series of digital images saved to PACS. FINDINGS: NEUROMUSCULAR COORDINATION OF SWALLOW: Normal. No aspiration. ESOPHAGEAL MOTILITY: Limited peristalsis. Prominent tertiary contractions of the lower 3rd of the es ophagus. There is a prominent cricopharyngeal is impression on the upper esophagus ESOPHAGEAL MUCOSA: Normal mucosa without masses or ulceration. GASTRO-ESOPHAGEAL JUNCTION: Small hiatal hernia. Barium tablet paused in the hernia for 10 minutes b efore dropping through into the stomach. This reproduced the patient's symptoms. Mild GE reflux. NON-GI TRACT STRUCTURES: Cervical fusion hardware. Lower thoracic kyphoplasty OTHER: No other significant finding. IMPRESSION: Small hiatal hernia with gastroesophageal reflux Distal esophageal narrowing impeded passage of the 12 mm tablet for about 10 minutes. This reproduce d the patient's symptoms Prominent tertiary contractions lower 3rd of the esophagus COMMENT: Quality ID 145: Final reports for procedures using fluoroscopy that document radiation exp osure indices, or exposure time and number of fluorographic images (if radiation exposure indices are not available) TECHNICAL DOCUMENTATION: JOB ID: [id number] [employer]- All Rights Reserved Reading location - IP/workstation name: [email or web address]
== END ==
LOC: RAD 08:48
PROVIDERS: ATTEND Physician Assistant
DX: K21.9 Gastro-esophageal reflux disease without esophagitis (principal)
CPT/HCPCS: 74220

== ENCOUNTER → 2019-05-13 | Outpatient (CLI) | payer MEDICARE, MEDICAID ==
--- NOTE | 2019-05-13 12:57 | RADIOLOGY REPORT (SQ) ---
EXAM DESCRIPTION: KNEE LEFT 4 VIEWS COMPLETED DATE/TIME: 05/13/2019 12:44 pm REASON FOR STUDY: ACUTE PAIN OF LEFT KNEE M25.562 PAIN IN LEFT KNEE COMPARISON: None. NUMBER OF VIEWS: Four views. TECHNIQUE: AP, lateral, and both oblique radiographic images acquired of the left knee. LIMITATIONS: None. FINDINGS: MINERALIZATION: Normal. BONES: No acute fracture or dislocation. No worrisome bone lesions. JOINT: No effusion. SOFT TISSUES: No soft tissue swelling. No radio-opaque foreign body. OTHER: No other significant finding. IMPRESSION: NEGATIVE STUDY OF THE LEFT KNEE. NO RADIOGRAPHIC EVIDENCE OF ACUTE INJURY. TECHNICAL DOCUMENTATION: JOB ID: [id number] [email or web address]- All Rights Reserved Reading location - IP/workstation name: [email or web address]
== END ==
LOC: OD 12:30
PROVIDERS: ATTEND Physician Assistant
DX: M25.562 Pain in left knee (principal)

== ENCOUNTER 2019-06-24 09:36 | Day surgery (SDC) | payer MEDICARE, MEDICAID ==
[2019-06-24 10:59] LABS: INTERNATIONAL RATION (INR) 0.95; PROTHROMBIN TIME 12.7 SEC (11.4-15.4)
[2019-06-24 11:00] LABS: PARTIAL THROMBOPLASTIN TIME 26.7 SEC (23.5-35.8)
[2019-06-24 14:41] VITALS: BP 115/59
--- NOTE | 2019-06-24 15:39 | RADIOLOGY REPORT (SQ) ---
EXAM DESCRIPTION: CT CERVICAL SPINE WITH; MYELOGRAM CERVICAL COMPLETED DATE/TIME: 06/24/2019 12:32 pm; 06/24/2019 12:31 pm REASON FOR STUDY: ARTHRODESIS STATUS/ PARESTHESIA OF SKIN; ARTHRODESIS STATUS/PARESTHESIA OF SKIN Z9 8.1 ARTHRODESIS STATUS R20.2 PARESTHESIA OF SKIN Z79.01 [facility] (CURRENT) USE OF ANTICOAGULANTS COMPARISON: None. FLUORO TIME: See chart 11 images saved to PACS. TECHNIQUE: Myelography was discussed with the patient, and she agreed to the procedure. Under fluoroscopic localization, the right/left paracentral L3-4 level was localized. Skin marked. Ti meout performed. After sterile skin prep and 10 mL of 1% local lidocaine for skin and deep tissue anesthesia, a 20 gau [employer] spinal needle was used to access the lumbar subarachnoid space via right paracentral approach at t he L3-4 level. Prompt return of clear cerebrospinal fluid. At this point, 9 ccofOmnipaque 300contrast was injected into the thecal sac without complication. Needle withdrawn, Band-Aid applied. After performing cervical myelogram, axial images were acquired through the cervical spine without in travenous contrast. Images reviewed with lung, soft tissue and bone windows. Reconstructed coronal and sagittal MPR images reviewed. Images stored on PACS. All CT scanners at this facility use dose modulation, iterative reconstruction, and/or weight based d osing when appropriate to reduce radiation dose to as low as reasonably achievable (ALARA). [facility]: Dose Right [facility]: CareDose [facility]: Dose Right [facility]: Teradose 4D [facility]: [employer] Technologies RADIATION DOSE: CT Rad equipment meets quality standard of care and radiation dose reduction techniq ues were employed. CTDIvol: 23.0 mGy. DLP: 625 mGy-cm. mGy. LIMITATIONS: None. FINDINGS: ALIGNMENT: Straightening of the normal cervical lordosis MINERALIZATION: Decreased. VERTEBRAL BODIES: No evidence of fracture or dislocation. There is multilevel postsurgical changes w ith posterior fusion hardware spanning C4-C7. There is anterior plate and screw hardware at C4-5. A dditional interbody spacers at C4-5, C5-6 and C6-7. DISCS: C1-C2: Degenerative changes at the atlantoaxial joint with osteophytosis and subchondral cystic lora e. No high-grade spinal canal stenosis. C2-C3: Mild degenerative change without significant spinal stenosis or exit foraminal stenosis. C3-C4: Disc height loss with disc osteophyte complex causing mild canal stenosis. Uncovertebral and facet hypertrophy with moderate bilateral neural foraminal narrowing, right greater than left. C4-C5: Anterior fusion hardware which limits evaluation. Disc height loss with disc osteophyte compl ex and resultant mild canal stenosis. Uncovertebral and facet hypertrophy. Mild neural foraminal an d narrowing, right greater than left. C5-C6: Anterior and posterior fusion hardware with disc height loss and asymmetric right posterior di sc osteophyte complex causing effacement of the CSF column and contacting the anterior cord. There i s jhqv-fb-jnnpxrcn canal narrowing. Uncovertebral hypertrophy with no high-grade neural foraminal na rrowing. C6-C7: Anterior and posterior fusion hardware. There is disc height loss and asymmetric right digital communications manager ior disc osteophyte complex causing effacement of the anterior CSF column and contact of the anterior cord with xjlk-fj-yefedgxk canal narrowing. Uncovertebral hypertrophy without high-grade osseous ne ural foraminal narrowing. C7-T1: Disc height loss without high-grade spinal canal stenosis or neural foraminal narrowing FACETS, LATERAL MASSES, POSTERIOR ELEMENTS: No facet fracture or dislocation. Multilevel facet fusio n as above. VISUALIZED RIBS: No fractures. LUNG APICES AND SOFT TISSUES: No significant or acute findings. OTHER: Bilateral scatter carotid atherosclerosis. IMPRESSION: 1. No evidence of acute bony abnormality of the cervical spine. 2. Multilevel postsurgical changes as detailed above which limits evaluation of fine detail. Multil evel degenerative changes with right asymmetric posterior disc osteophyte complex at C5-6 and C6-7 wh ich causes mfuw-wc-eftlrlpw canal narrowing and contacts the right anterior spinal cord. 3. Multilevel uncovertebral hypertrophy with sxcw-bn-hjxkodwt neural foraminal narrowing, greatest a t C3-4. 5. Additional multilevel degenerative changes as detailed above. COMMENT: Patient medication list reviewed: Yes- Quality ID# [id number]:Eligible professional attests to doc umenting in the medical record they obtained, updated, or reviewed the patient's current medications. TECHNICAL DOCUMENTATION: JOB ID: [id number] Quality ID 145: Final reports for procedures using fluoroscopy that document radiation exposure patrick jan, or exposure time and number of fluorographic images (if radiation exposure indices are not avail able) Quality ID # 436: Final reports with documentation of one or more dose reduction techniques (e.g., Au tomated exposure control, adjustment of the mA and/or kV according to patient size, use of iterative reconstruction technique) 2010 [employer]- All Rights Reserved Reading location - IP/workstation name: [email or web address]
--- NOTE | 2019-06-24 15:39 | RADIOLOGY REPORT (SQ) ---
EXAM DESCRIPTION: CT CERVICAL SPINE WITH; MYELOGRAM CERVICAL COMPLETED DATE/TIME: 06/24/2019 12:32 pm; 06/24/2019 12:31 pm REASON FOR STUDY: ARTHRODESIS STATUS/ PARESTHESIA OF SKIN; ARTHRODESIS STATUS/PARESTHESIA OF SKIN Z9 8.1 ARTHRODESIS STATUS R20.2 PARESTHESIA OF SKIN Z79.01 [facility] (CURRENT) USE OF ANTICOAGULANTS COMPARISON: None. FLUORO TIME: See chart 11 images saved to PACS. TECHNIQUE: Myelography was discussed with the patient, and she agreed to the procedure. Under fluoroscopic localization, the right/left paracentral L3-4 level was localized. Skin marked. Ti meout performed. After sterile skin prep and 10 mL of 1% local lidocaine for skin and deep tissue anesthesia, a 20 gau [employer] spinal needle was used to access the lumbar subarachnoid space via right paracentral approach at t he L3-4 level. Prompt return of clear cerebrospinal fluid. At this point, 9 ccofOmnipaque 300contrast was injected into the thecal sac without complication. Needle withdrawn, Band-Aid applied. After performing cervical myelogram, axial images were acquired through the cervical spine without in travenous contrast. Images reviewed with lung, soft tissue and bone windows. Reconstructed coronal and sagittal MPR images reviewed. Images stored on PACS. All CT scanners at this facility use dose modulation, iterative reconstruction, and/or weight based d osing when appropriate to reduce radiation dose to as low as reasonably achievable (ALARA). [facility]: Dose Right [facility]: CareDose [facility]: Dose Right [facility]: Teradose 4D [facility]: [employer] RADIATION DOSE: CT Rad equipment meets quality standard of care and radiation dose reduction techniq ues were employed. CTDIvol: 23.0 mGy. DLP: 625 mGy-cm. mGy. LIMITATIONS: None. FINDINGS: ALIGNMENT: Straightening of the normal cervical lordosis MINERALIZATION: Decreased. VERTEBRAL BODIES: No evidence of fracture or dislocation. There is multilevel postsurgical changes w ith posterior fusion hardware spanning C4-C7. There is anterior plate and screw hardware at C4-5. A dditional interbody spacers at C4-5, C5-6 and C6-7. DISCS: C1-C2: Degenerative changes at the atlantoaxial joint with osteophytosis and subchondral cystic lora e. No high-grade spinal canal stenosis. C2-C3: Mild degenerative change without significant spinal stenosis or exit foraminal stenosis. C3-C4: Disc height loss with disc osteophyte complex causing mild canal stenosis. Uncovertebral and facet hypertrophy with moderate bilateral neural foraminal narrowing, right greater than left. C4-C5: Anterior fusion hardware which limits evaluation. Disc height loss with disc osteophyte compl ex and resultant mild canal stenosis. Uncovertebral and facet hypertrophy. Mild neural foraminal an d narrowing, right greater than left. C5-C6: Anterior and posterior fusion hardware with disc height loss and asymmetric right posterior di sc osteophyte complex causing effacement of the CSF column and contacting the anterior cord. There i s escy-wr-axclmvnp canal narrowing. Uncovertebral hypertrophy with no high-grade neural foraminal na rrowing. C6-C7: Anterior and posterior fusion hardware. There is disc height loss and asymmetric right seat cover maker ior disc osteophyte complex causing effacement of the anterior CSF column and contact of the anterior cord with wdti-hi-stwkvpbm canal narrowing. Uncovertebral hypertrophy without high-grade osseous ne ural foraminal narrowing. C7-T1: Disc height loss without high-grade spinal canal stenosis or neural foraminal narrowing FACETS, LATERAL MASSES, POSTERIOR ELEMENTS: No facet fracture or dislocation. Multilevel facet fusio n as above. VISUALIZED RIBS: No fractures. LUNG APICES AND SOFT TISSUES: No significant or acute findings. OTHER: Bilateral scatter carotid atherosclerosis. IMPRESSION: 1. No evidence of acute bony abnormality of the cervical spine. 2. Multilevel postsurgical changes as detailed above which limits evaluation of fine detail. Multil evel degenerative changes with right asymmetric posterior disc osteophyte complex at C5-6 and C6-7 wh ich causes vwre-yp-ppxuebjn canal narrowing and contacts the right anterior spinal cord. 3. Multilevel uncovertebral hypertrophy with bzud-gj-ukupbazf neural foraminal narrowing, greatest a t C3-4. 5. Additional multilevel degenerative changes as detailed above. COMMENT: Patient medication list reviewed: Yes- Quality ID# 130:Eligible professional attests to doc umenting in the medical record they obtained, updated, or reviewed the patient's current medications. TECHNICAL DOCUMENTATION: JOB ID: [id number] Quality ID 145: Final reports for procedures using fluoroscopy that document radiation exposure patrick jan, or exposure time and number of fluorographic images (if radiation exposure indices are not avail able) Quality ID # 436: Final reports with documentation of one or more dose reduction techniques (e.g., Au tomated exposure control, adjustment of the mA and/or kV according to patient size, use of iterative reconstruction technique) 2010 [employer]- All Rights Reserved Reading location - IP/workstation name: [email or web address]
== END 2019-06-24 14:45 | disposition home or self-care (01) ==
LOC: RAD 09:36
PROVIDERS: ATTEND Physician Assistant Surgical
DX: Z98.1 Arthrodesis status (principal); R20.2 Paresthesia of skin; Z79.01 Long term (current) use of anticoagulants
CPT/HCPCS: 36415; 72126; 72240; 82962; 85610; 85730

== ENCOUNTER → 2019-09-05 | Outpatient (CLI) | payer MEDICARE, MEDICAID ==
[2019-09-05 13:28] LABS: ABSOLUTE EOSINOPHILS # (AUTO) 0.1 10^3/uL (0.0-0.6); ABSOLUTE MONOCYTES (AUTO) 0.7 10^3/uL (0.1-1.4); ABSOLUTE NEUT (AUTO) 6.9 10^3/uL (1.7-8.2); BASOPHILS % (AUTO) 0.5 % (0-2); EOSINOPHILS % (AUTO) 1.4 % (0-6); HEMATOCRIT 35.5 % (36.0-47.0); HEMOGLOBIN 11.8 g/dL (12.0-15.5); MEAN CORPUSCULAR HEMOGLOBIN 31.4 pg (27.0-33.4); MEAN CORPUSCULAR HGB CONC 33.3 g/dL (32.0-36.0); MEAN CORPUSCULAR VOLUME 94 fl (80-97); MONOCYTES % (AUTO) 7.6 % (3-13); PLATELET COUNT 173 10^3/uL (150-450); RED BLOOD COUNT 3.77 10^6/uL (3.72-5.28); RED CELL DISTRIBUTION WIDTH 13.9 % (11.5-14.0); SEGMENTED NEUTROPHILS % (AUTO) 79.5 % (42-78); TOTAL CELLS COUNTED % (AUTO) 100 %; WHITE BLOOD COUNT 8.7 10^3/uL (4.0-10.5)
[2019-09-05 13:46] LABS: ANION GAP 6 (5-19); BLOOD UREA NITROGEN 34 mg/dL (7-20); CALCIUM 9.5 mg/dL (8.4-10.2); CARBON DIOXIDE 26 mmol/L (22-30); CHLORIDE 103 mmol/L (98-107); GLUCOSE 136 mg/dL (75-110); PHOSPHORUS 4.7 mg/dL (2.5-4.5); POTASSIUM 5.4 mmol/L (3.6-5.0)
[2019-09-05 14:45] LABS: APPEARANCE,URINE TURBID; BILIRUBIN,URINE NEGATIVE (NEGATIVE); GLUCOSE, URINE NEGATIVE (NEGATIVE); KETONES,URINE NEGATIVE (NEGATIVE); LEUKOCYTE ESTERASE,URINE LARGE (NEGATIVE); NITRITE,URINE NEGATIVE (NEGATIVE); PROTEIN,URINE 100 mg/dL (NEGATIVE); URINE SPECIFIC GRAVITY 1.019; UROBILINOGEN,URINE NEGATIVE mg/dL (<2.0)
[2019-09-05 14:46] LABS: COLOR,URINE YELLOW
[2019-09-05 14:59] LABS: UR PRO/CREAT RATIO RESULT 0.3 mg/mg (0.0-0.2); URINE CREATININE 174.5 mg/dL (15-278); URINE PROTEIN 55.6 mg/dL (<12)
== END ==
LOC: OD 13:08
PROVIDERS: ATTEND Internal Medicine Nephrology
DX: I12.9 Hypertensive chronic kidney disease with stage 1 through stage 4 chronic kidney disease, or unspecified chronic kidney disease (principal); N18.3 Chronic kidney disease, stage 3 (moderate); E11.22 Type 2 diabetes mellitus with diabetic chronic kidney disease; R80.9 Proteinuria, unspecified; N25.0 Renal osteodystrophy; N39.0 Urinary tract infection, site not specified
CPT/HCPCS: 36415; 80048; 81001; 82570; 83735; 83970; 84100; 84156; 85025

== ENCOUNTER → 2019-09-17 | Outpatient (CLI) | payer MEDICARE, MEDICAID ==
--- NOTE | 2019-09-17 13:00 | RADIOLOGY REPORT (SQ) ---
EXAM DESCRIPTION: CERV SP 3 VIEW OR LESS IMAGES COMPLETED DATE/TIME: 09/17/2019 12:10 pm REASON FOR STUDY: Z98.1 ARTHRODESIS STATUS Z98.1 ARTHRODESIS STATUS COMPARISON: 06/24/2019. NUMBER OF VIEWS: Two view. TECHNIQUE: Lateral views of the cervical spine with flexion and extension. LIMITATIONS: Limited visualization due to position of the patient shoulders. FINDINGS: MINERALIZATION: Normal. ALIGNMENT: Anatomic. FLEXION/EXTENSION: No instability. VERTEBRAE: Vertebral bodies of normal height. DISCS: No significant osteophytes or sclerosis. Disc height maintained. LATERAL AND POSTERIOR ELEMENTS: Facets, lateral masses, and spinous processes without significant fin dings. HARDWARE: Posterior hardware from C4 to C7. Disc spacer and anterior hardware at C4-C5. SOFT TISSUES: No masses or calcifications. Lung apices clear. OTHER: No other significant finding. IMPRESSION: SURGICAL CHANGES WITH HARDWARE. NO INSTABILITY ON FLEXION/EXTENSION. TECHNICAL DOCUMENTATION: JOB ID: [id number] 2010 [employer]- All Rights Reserved Reading location - IP/workstation name: [email or web address]
== END ==
LOC: RAD 11:41
PROVIDERS: ATTEND Physician Assistant Surgical
DX: Z47.89 Encounter for other orthopedic aftercare (principal); Z98.1 Arthrodesis status
CPT/HCPCS: 72040

== ENCOUNTER 2019-11-01 08:35 | Emergency (ER) | payer MEDICARE, MEDICAID ==
[2019-11-01 08:43] VITALS: BP 180/96
--- NOTE | 2019-11-01 09:57 | RADIOLOGY REPORT (SQ) ---
EXAM DESCRIPTION: ANKLE LEFT COMPLETE IMAGES COMPLETED DATE/TIME: 11/01/2019 9:41 am REASON FOR STUDY: tender to touch/ fall COMPARISON: None. NUMBER OF VIEWS: Three views. TECHNIQUE: AP, lateral, and oblique radiographic images acquired of the left ankle. LIMITATIONS: None. FINDINGS: MINERALIZATION: Normal. BONES: No acute fracture or dislocation. No worrisome bone lesions. JOINTS: No effusions. SOFT TISSUES: No soft tissue swelling. No foreign body. OTHER: No other significant finding. IMPRESSION: NEGATIVE STUDY OF THE LEFT ANKLE. NO RADIOGRAPHIC EVIDENCE OF ACUTE INJURY. TECHNICAL DOCUMENTATION: JOB ID: [id number] 2010 [employer]- All Rights Reserved Reading location - IP/workstation name: [email or web address]
--- NOTE | 2019-11-01 10:50 | ER Document Report ---
Entered by LAUREN HOBSON SCRIBE 11/01/19 1010 Acting as scribe for:OBEY NAVA MD ED Extremity Problem, Lower - General Chief Complaint: Ankle Injury Stated Complaint: FALL Time Seen by Provider: 11/01/19 09:23 Primary Care Provider: ESTUARDO OCASIO MD [Primary Care Provider] - Follow up as needed Mode of Arrival: Ambulatory Information source: Patient Notes: This 83 year old female patient presents to the emergency department today with complaints of two syncopal events. Patient reports the first syncopal event happened at around 8:00 PM two nights ago. She reports that she had just closed her front door and was walking in the living room when the syncopal event occurred. She had no injuries during the first event. Last night the patient again had a syncopal event at around 8:00 PM. Patient states this episode occurred after she had gotten up off her couch and was walking into the kitchen. She reports that the left side of her body struck her cabinets as she fell. Patient complains of left ankle pain, left wrist pain, left arm skin tears, left shoulder pain, left-sided chest wall pain, and "butt and back burning". Patient reports this burning sensation has subsided. TRAVEL OUTSIDE OF THE [place] IN LAST 30 DAYS: No - Related Data Allergies/Adverse Reactions: morphine [Morphine] Allergy (Mild, Verified 01/01/19 11:41) Generalized Itching Home Medications: symbicort. hydrocodone. Levathryoxine. atorvastatin. prilosec. cetrilizine. tradjenta. backlaphine. bystolic. gabapentin Past Medical History - General Information source: Patient - Social History Smoking Status: Former Smoker - quit 20 years ago Cigarette use (# per day): No Frequency of alcohol use: None Drug Abuse: None Lives with: Family Family History: Reviewed & Not Pertinent - Past Medical History Cardiac Medical History: Reports: Hx Hypercholesterolemia, Hx Hypertension - BYSTOLIC Pulmonary Medical History: Reports: Hx Asthma, Hx COPD Endocrine Medical History: Reports: Hx Diabetes Mellitus Type 2 - ORAL HYPOGLYCEMICS Renal/ Medical History: Reports: Hx Renal Insufficiency Musculoskeletal Medical History: Reports Hx Arthritis Past Surgical History: Reports: Hx Hysterectomy, Hx Orthopedic Surgery - CERVICAL FUSION X 3 - Immunizations Hx Diphtheria, Pertussis, Tetanus Vaccination: Yes Review of Systems - Review of Systems Constitutional: No symptoms reported EENT: No symptoms reported Cardiovascular: See HPI, Syncope Respiratory: No symptoms reported Gastrointestinal: No symptoms reported Genitourinary: No symptoms reported Female Genitourinary: No symptoms reported Musculoskeletal: See HPI, Joint pain, Muscle pain Skin: No symptoms reported Hematologic/Lymphatic: No symptoms reported Neurological/Psychological: No symptoms reported -: Yes All other systems reviewed and negative Physical Exam - Vital signs Vitals: Temp Pulse Resp BP Pulse Ox 98.0 F 81 20 180/96 H 100 11/01/19 08:41 11/01/19 08:41 11/01/19 08:41 11/01/19 08:41 11/01/19 08:41 - Notes Notes: Physical Exam: General: Alert, appears age appropriate. HEENT: Normocephalic. Atraumatic. PERRL. Extraocular movements intact. Oropharynx clear. Neck: Supple. Non-tender. Respiratory: No respiratory distress. Clear and equal breath sounds bilaterally. Exquisite left parasternal tenderness with palpation. Cardiovascular: Regular rate and rhythm. Abdominal: Morbidly obese. Normal Inspection. Non-tender. No distension. Normal Bowel Sounds. Back: No gross abnormalities. Extremities: Moves all four extremities. Upper extremities: Normal inspection. Normal ROM. Lower extremities: Minimal distal left lateral malleolus tenderness to pa lpation. Pelvis is stable. No tenderness with internal or external rotation of the legs. Neurological: Normal cognition. AAOx4. Normal speech. Psychological: Normal affect. Normal Mood. Skin: Small abrasion to left wrist. 10cm x 4cm skin tear to left upper arm. Course - Vital Signs Vital signs: Temp Pulse Resp BP Pulse Ox 98.0 F 81 20 180/96 H 100 11/01/19 08:41 11/01/19 08:41 11/01/19 08:41 11/01/19 08:41 11/01/19 08:41 - Laboratory Result Diagrams: 11/01/19 10:45 11/01/19 10:45 Laboratory results interpreted by me: 11/01/19 11/01/19 10:45 10:45 RBC 3.61 L Hgb 11.6 L Hct 34.5 L Sodium 134.0 L Potassium 5.3 H Creatinine 1.34 H Est GFR ( Amer) 46 L Est GFR (MDRD) Non-Af 38 L Glucose 117 H AST 44 H Creatine Kinase 236 H - Diagnostic Test Radiology reviewed: Image reviewed, Reports reviewed - Noncontrasted CT scan of the chest does not show acute process. There is a small 2.5 mm pulmonary nodule located in the subpleural space adjacent to the left major fissure. There are reactive mediastinal lymph nodes. X-ray of the left ankle was unremarkable. - EKG Interpretation by Me EKG shows normal: Sinus rhythm, [place], Intervals, QRS Complexes, ST-T Waves Rate: Normal - 80 Rhythm: NSR When compared to previous EKG there are: No significant change - Consults Dr. Ocasio Time consulted: 11:57 Consulted provider: follow-up in office - He will see her in the office Monday and arrange to get a court monitor placed. Discharge - Discharge Clinical Impression: Syncope and collapse Chest wall contusion Qualifiers: Encounter type: initial encounter Laterality: left Qualified Code(s): S20.212A - Contusion of left front wall of thorax, initial encounter Skin tear of left upper arm without complication Qualifiers: Encounter type: initial encounter Qualified Code(s): S41.112A - Laceration without foreign body of left upper arm, initial encounter Condition: Stable Disposition: HOME, SELF-CARE Additional Instructions: Syncopal Episode: Syncope (fainting or near-fainting) can occur from many different health problems. Or it can be a simple fainting spell requiring no treatment. It is safe for you to go home, but further evaluation will likely be necessary. Your work-up may include tests for internal bleeding, heart disease, medication problems, or near-strokes. Tests are not always required, however, depending on the nature of your problem. The warning signs of an impending faint include: dizziness, lightheadedness, nausea, hot flashes, tingling, and weakness. If this happens, lay down and put your feet up, then wait until all of these symptoms have passed before standing up again. If these episodes become recurrent, or if you develop chest pain, heart palpitations, mental confusion, blurred vision, or headache, then you should call the physician, or go to the emergency room. Skin Tear: Your wound is a skin tear. These wounds are difficult and sometimes impossible to suture because the skin is so fragile that it may not hold the sutures. The skin condition can be due to aging and sometimes medications. The best care for such skin tears is sometimes to not try to suture them. Rather, it is best to position the skin as closely as possible to its original location and apply a bandage that can remain in place for several days at a time and sometimes these bandages are left in place until the wound has healed. Most skin tears will heal in about two weeks. Because they are so difficult to care for, skin tears should be expected to leave some scarring. Chest Wall Contusion: Your injury has resulted in a contusion -- a crushing of the deep tissues. No injury to important structures was detected during the physician's exam. Contusions vary in the amount of pain they cause, and in the length of time required for healing. Typically, the area will become bruised, and will remain painful to touch for two or three weeks. However, most patients are back to working and playing within a few days. After the initial period of rest and cold-packs, your symptoms (together with the doctor's recommendations) will determine how rapidly you can get back to full activity. Usually this means "do what feels okay, but don't do things that hurt." If re-examination was recommended, it's important to follow up as instructed. Call the doctor or return any time if pain increases, if swelling becomes severe, if you develop numbness or weakness in an injured extremity, or if any other alarming symptoms occur. Your potassium level was a little elevated today, as it has been several times in the past. You should be careful to avoid foods, fruits, vegetables, and beverages that are known to be high in potassium. The skin tear was dressed in the most appropriate way to allow as much as the skin to survive is possible. Leave the dressing on your upper arm intact and keep it dry. Take Tylenol for the left anterior chest wall pain you are having after your most recent fall. Take fall precautions at home, make sure that you stay well-hydrated. Follow-up with Dr. Ocasio on Monday morning at 9 AM to review your emergency room visit today, and to recheck your arm skin tear. Ask him to review the chest CT results to determine appropriate follow-up for the nodule seen in your left chest. RETURN TO THE EMERGENCY ROOM IF ANY NEW OR WORSENING SYMPTOMS. Referrals: ESTUARDO OCASIO MD [Primary Care Provider] - 11/04/19 9:00 am I personally performed the services described in the documentation, reviewed and edited the documentation which was dictated to the scribe in my presence, and it accurately records my words and actions.
[2019-11-01 11:07] LABS: ABSOLUTE EOSINOPHILS # (AUTO) 0.1 10^3/uL (0.0-0.6); ABSOLUTE LYMPHOCYTES (AUTO) 0.9 10^3/uL (0.5-4.7); ABSOLUTE MONOCYTES (AUTO) 0.6 10^3/uL (0.1-1.4); ABSOLUTE NEUT (AUTO) 4.7 10^3/uL (1.7-8.2); BASOPHILS % (AUTO) 0.7 % (0-2); EOSINOPHILS % (AUTO) 1.1 % (0-6); HEMATOCRIT 34.5 % (36.0-47.0); HEMOGLOBIN 11.6 g/dL (12.0-15.5); LYMPHOCYTES % (AUTO) 13.8 % (13-45); MEAN CORPUSCULAR HEMOGLOBIN 32.2 pg (27.0-33.4); MEAN CORPUSCULAR HGB CONC 33.6 g/dL (32.0-36.0); MEAN CORPUSCULAR VOLUME 96 fl (80-97); MONOCYTES % (AUTO) 9.2 % (3-13); PLATELET COUNT 167 10^3/uL (150-450); RED BLOOD COUNT 3.61 10^6/uL (3.72-5.28); RED CELL DISTRIBUTION WIDTH 12.6 % (11.5-14.0); SEGMENTED NEUTROPHILS % (AUTO) 75.2 % (42-78); TOTAL CELLS COUNTED % (AUTO) 100 %; WHITE BLOOD COUNT 6.2 10^3/uL (4.0-10.5)
[2019-11-01 11:08] LABS: APPEARANCE,URINE CLEAR; BILIRUBIN,URINE NEGATIVE (NEGATIVE); COLOR,URINE STRAW; GLUCOSE, URINE NEGATIVE (NEGATIVE); KETONES,URINE NEGATIVE (NEGATIVE); LEUKOCYTE ESTERASE,URINE NEGATIVE (NEGATIVE); NITRITE,URINE NEGATIVE (NEGATIVE); PROTEIN,URINE NEGATIVE (NEGATIVE); URINE SPECIFIC GRAVITY 1.004; UROBILINOGEN,URINE NEGATIVE mg/dL (<2.0)
--- NOTE | 2019-11-01 11:34 | RADIOLOGY REPORT (SQ) ---
EXAM DESCRIPTION: CT CHEST WITHOUT IMAGES COMPLETED DATE/TIME: 11/01/2019 11:05 am REASON FOR STUDY: Fall, left anterior chest wall pain COMPARISON: None. TECHNIQUE: CT scan performed of the chest without intravenous contrast. Images reviewed with lung, soft tissue and bone windows. Reconstructed coronal and sagittal MPR images reviewed. All images st ored on PACS. All CT scanners at this facility use dose modulation, iterative reconstruction, and/or weight based d osing when appropriate to reduce radiation dose to as low as reasonably achievable (ALARA). [facility]: Dose Right [facility]: CareDose [facility]: Dose Right [facility]: Teradose 4D [facility]: AKT RADIATION DOSE: CT Rad equipment meets quality standard of care and radiation dose reduction techniq ues were employed. CTDIvol: 11.0 mGy. DLP: 415 mGy-cm. mGy. LIMITATIONS: No technical limitations. FINDINGS: LUNGS AND PLEURA: There is a small nodule subpleural location demonstrated on series 4, im age 32. This measures only 2.5 mm in diameter. No consolidation. No pneumothorax. Minimal bibasil ar pleural thickening. HILAR AND MEDIASTINAL STRUCTURES: Small nonspecific mediastinal lymph nodes most likely reactive. Th e largest measures 9.2 mm in diameter is best demonstrated on series 3, image 15. HEART AND VASCULAR STRUCTURES: No aneurysm. No pericardial effusion. UPPER ABDOMEN: No significant findings. Limited exam. THYROID AND OTHER SOFT TISSUES: No masses. No adenopathy. BONES: Old T10 kyphoplasty. Methylmethacrylate has migrated into the disc base. This is stable dati ng back to 2019. HARDWARE: None in the chest. OTHER: No other significant findings. IMPRESSION: 1. Small 2.5 mm pulmonary nodule subpleural in location adjacent to the left major fiss ure. Please see below for recommended follow-up. Small nonspecific mediastinal nodes most likely re active. 2. No acute findings in the chest. COMMENT: F[place]CHNER CRITERIA FOR FOLLOW-UP OF PULMONARY NODULES Incidentally detected new nodules in persons 35 or older. HIGH RISK: History of smoking or other known risk factors. <6 mm single solid nodule: LOW RISK: no routine followup. HIGH RISK: optional CT 12 mo. TECHNICAL DOCUMENTATION: JOB ID: [id number] Quality ID # [id number]: Final reports with documentation of one or more dose reduction techniques (e.g., Au tomated exposure control, adjustment of the mA and/or kV according to patient size, use of iterative reconstruction technique) 2010 [employer]- All Rights Reserved Reading location - IP/workstation name: [email or web address]
[2019-11-01 11:36] LABS: ALBUMIN 4.3 g/dL (3.5-5.0); ALKALINE PHOSPHATASE 93 U/L (38-126); ANION GAP 5 (5-19); ASPARTATE AMINO TRANSFERASE 44 U/L (14-36); BILIRUBIN,TOTAL 0.4 mg/dL (0.2-1.3); BLOOD UREA NITROGEN 17 mg/dL (7-20); CALCIUM 9.4 mg/dL (8.4-10.2); CARBON DIOXIDE 27 mmol/L (22-30); CHLORIDE 102 mmol/L (98-107); CREATINE KINASE 236 U/L (30-135); GLUCOSE 117 mg/dL (75-110); POTASSIUM 5.3 mmol/L (3.6-5.0); TOTAL PROTEIN 7.6 g/dL (6.3-8.2)
--- NOTE | 2019-11-01 13:04 | EKG REPORT ---
SEVERITY:- NORMAL ECG - SINUS RHYTHM : Confirmed by: Rasta Thompson MD 01-Nov-2019 13:04:07
== END 2019-11-01 12:32 | disposition home or self-care (01) ==
LOC: ER 08:35
DX: S20.212A Contusion of left front wall of thorax, initial encounter (principal); S41.112A Laceration without foreign body of left upper arm, initial encounter; R55 Syncope and collapse; M25.572 Pain in left ankle and joints of left foot; M25.532 Pain in left wrist; M79.602 Pain in left arm; W19.XXXA Unspecified fall, initial encounter; Z88.8 Allergy status to other drugs, medicaments and biological substances; Z79.899 Other long term (current) drug therapy; Z87.891 Personal history of nicotine dependence; E11.9 Type 2 diabetes mellitus without complications; Z79.84 Long term (current) use of oral hypoglycemic drugs; J44.9 Chronic obstructive pulmonary disease, unspecified; I10 Essential (primary) hypertension
CPT/HCPCS: 36415; 71250; 80053; 81001; 82550; 84484; 85025; 93005; 93010; 99284

== ENCOUNTER → 2019-11-11 | Outpatient (CLI) | payer MEDICARE, MEDICAID ==
--- NOTE | 2019-11-11 09:34 | RADIOLOGY REPORT (SQ) ---
EXAM DESCRIPTION: CT HEAD WITHOUT IMAGES COMPLETED DATE/TIME: 11/11/2019 9:19 am REASON FOR STUDY: R55 SYNCOPE AND COLLAPSE R55 SYNCOPE AND COLLAPSE COMPARISON: 10/14/2015 TECHNIQUE: Axial images acquired through the brain without intravenous contrast. Images reviewed wi th bone, brain and subdural windows. Additional sagittal and coronal reconstructions were generated. Images stored on PACS. All CT scanners at this facility use dose modulation, iterative reconstruction, and/or weight based d osing when appropriate to reduce radiation dose to as low as reasonably achievable (ALARA). [facility]: Dose Right [facility]: CareDose [facility]: Dose Right [facility]: Teradose 4D [facility]: Ranker RADIATION DOSE: CT Rad equipment meets quality standard of care and radiation dose reduction techniq ues were employed. CTDIvol: 48.6 mGy. DLP: 905 mGy-cm. mGy. LIMITATIONS: None. FINDINGS: VENTRICLES: Prominent. CEREBRUM: No masses. No hemorrhage. No midline shift. Areas of low density in the white matter mos t likely due to chronic micro-vascular ischemic change. No evidence for acute infarction. CEREBELLUM: No masses. No hemorrhage. No alteration of density. No evidence for acute infarction. EXTRAAXIAL SPACES: Mild age-related involutional change. No fluid collections. No masses. ORBITS AND GLOBE: No intra- or extraconal masses. Normal contour of globe without masses. CALVARIUM: No fracture. PARANASAL SINUSES: No fluid or mucosal thickening. SOFT TISSUES: No mass or hematoma. OTHER: No other significant finding. IMPRESSION: MILD CHRONIC CHANGES OF ATROPHY AND MICROVASCULAR ISCHEMIA. NO ACUTE PROCESS. EVIDENCE OF ACUTE STROKE: NO. TECHNICAL DOCUMENTATION: JOB ID: [id number] Quality ID # [id number]: Final reports with documentation of one or more dose reduction techniques (e.g., Au tomated exposure control, adjustment of the mA and/or kV according to patient size, use of iterative reconstruction technique) 2010 [employer]- All Rights Reserved Reading location - IP/workstation name: [email or web address]
== END ==
LOC: RAD 09:02
PROVIDERS: ATTEND Physician Assistant
DX: R55 Syncope and collapse (principal)
CPT/HCPCS: 70450

== ENCOUNTER 2019-11-22 13:05 | Day surgery (SDC) | payer MEDICARE, MEDICAID ==
[2019-11-22] MEDS ORDERED: ONABOTULINUMTOXINA INJ/PF 100 UNIT SDV IM PRN (13:20)
[2019-11-22] MEDS ORDERED: PROPOFOL INJ 200 MG/20 ML VIAL IV ONE (14:05)
--- NOTE | 2019-11-22 14:54 | Operative Report ---
Operative Report DATE OF SURGERY: 11/22/19 Operative Report: Pre-op diagnosis: Dysphagia with history of achalasia Post-op diagnosis: 1. Antral gastritis 2. Esophageal achalasia Surgery: Esophagogastroduodenoscopy with biopsy and Botox injection Medications: As per anesthesia Tissue removed: Antral biopsy for pathology Procedure: After informed consent obtained from patient, the throat was sprayed with Hurricane and conscious sedation was achieved. The upper endoscope was inserted into the esophagus under direct vision and advanced into the stomach. The duodenum was entered and examined to the second part. Endoscope was then slowly pulled out of the patient as the mucosa was examined into details. Chris richard tolerated procedure well. Findings Esophagus: No significant narrowing was identified at the GE junction. Botox was injected in 4 quadrants with no difficulty. Antrum: Mild erythema with an erosion Body: Normal Fundus: Normal Duodenum first part: Normal Duodenum second part: Normal Plan: Await pathology. Continue omeprazole but reduce to 40 mg 1 daily instead of twice daily. The dose can be reduced further in the future OPERATION: EGD with biopsy and Botox injection
[2019-11-22 15:16] VITALS: BP 147/75
== END 2019-11-22 15:25 | disposition home or self-care (01) ==
LOC: END 13:05
PROVIDERS: ATTEND Internal Medicine Gastroenterology
DX: K31.9 Disease of stomach and duodenum, unspecified (principal); K22.0 Achalasia of cardia; K59.03 Drug induced constipation; J44.9 Chronic obstructive pulmonary disease, unspecified; I25.10 Atherosclerotic heart disease of native coronary artery without angina pectoris; D64.9 Anemia, unspecified; Z03.818 Encounter for observation for suspected exposure to other biological agents ruled out; E78.00 Pure hypercholesterolemia, unspecified; E03.9 Hypothyroidism, unspecified; E11.22 Type 2 diabetes mellitus with diabetic chronic kidney disease; I12.9 Hypertensive chronic kidney disease with stage 1 through stage 4 chronic kidney disease, or unspecified chronic kidney disease; N18.2 Chronic kidney disease, stage 2 (mild); Z88.5 Allergy status to narcotic agent; Z79.899 Other long term (current) drug therapy; Z85.51 Personal history of malignant neoplasm of bladder
CPT/HCPCS: 43236; 43239; 82962; 88342 ×2; 88305 ×2; 00731; U0003; J2704; J0585; C9803; 731; 87635

== ENCOUNTER → 2020-01-31 | Outpatient (CLI) | payer MEDICARE, MEDICAID ==
[2020-01-31 10:07] LABS: ANION GAP 11 (5-19); BLOOD UREA NITROGEN 29 mg/dL (7-20); CALCIUM 9.3 mg/dL (8.4-10.2); CARBON DIOXIDE 25 mmol/L (22-30); CHLORIDE 100 mmol/L (98-107); GLUCOSE 107 mg/dL (75-110); POTASSIUM 4.5 mmol/L (3.6-5.0)
== END ==
LOC: OD 09:06
PROVIDERS: ATTEND Physician Assistant Medical
DX: N18.4 Chronic kidney disease, stage 4 (severe) (principal)
CPT/HCPCS: 36415; 80048

== ENCOUNTER 2020-02-14 12:01 | Inpatient (IN) | payer MEDICARE, MEDICAID ==
[2020-02-14] MEDS ORDERED: NORMAL SALINE 1000 ML 1,000 ML IV ONE (12:48)
[2020-02-14 12:58] LABS: ABSOLUTE LYMPHOCYTES (AUTO) 0.8 10^3/uL (0.5-4.7); ABSOLUTE MONOCYTES (AUTO) 0.6 10^3/uL (0.1-1.4); ABSOLUTE NEUT (AUTO) 7.3 10^3/uL (1.7-8.2); BASOPHILS % (AUTO) 0.4 % (0-2); EOSINOPHILS % (AUTO) 0.5 % (0-6); HEMOGLOBIN 12.2 g/dL (12.0-15.5); LYMPHOCYTES % (AUTO) 9.3 % (13-45); MEAN CORPUSCULAR HEMOGLOBIN 32.3 pg (27.0-33.4); MEAN CORPUSCULAR HGB CONC 34.9 g/dL (32.0-36.0); MEAN CORPUSCULAR VOLUME 93 fl (80-97); MONOCYTES % (AUTO) 7.3 % (3-13); PLATELET COUNT 156 10^3/uL (150-450); RED BLOOD COUNT 3.78 10^6/uL (3.72-5.28); RED CELL DISTRIBUTION WIDTH 13.6 % (11.5-14.0); SEGMENTED NEUTROPHILS % (AUTO) 82.5 % (42-78); TOTAL CELLS COUNTED % (AUTO) 100 %; WHITE BLOOD COUNT 8.8 10^3/uL (4.0-10.5)
[2020-02-14 13:02] LABS: INTERNATIONAL RATION (INR) 0.96
[2020-02-14 13:03] LABS: PARTIAL THROMBOPLASTIN TIME 23.7 SEC (23.5-35.8)
[2020-02-14 13:19] LABS: ALBUMIN 4.4 g/dL (3.5-5.0); ALKALINE PHOSPHATASE 110 U/L (38-126); ANION GAP 9 (5-19); ASPARTATE AMINO TRANSFERASE 56 U/L (14-36); BILIRUBIN,DIRECT 0.2 mg/dL (0.0-0.4); BILIRUBIN,TOTAL 0.7 mg/dL (0.2-1.3); BLOOD UREA NITROGEN 22 mg/dL (7-20); CALCIUM 9.3 mg/dL (8.4-10.2); CARBON DIOXIDE 25 mmol/L (22-30); CHLORIDE 104 mmol/L (98-107); CREATINE KINASE 338 U/L (30-135); GLUCOSE 127 mg/dL (75-110); POTASSIUM 5.5 mmol/L (3.6-5.0); TOTAL PROTEIN 7.4 g/dL (6.3-8.2)
--- NOTE | 2020-02-14 13:22 | RADIOLOGY REPORT (SQ) ---
EXAM DESCRIPTION: CHEST SINGLE VIEW IMAGES COMPLETED DATE/TIME: 02/14/2020 12:00 pm REASON FOR STUDY: ams. COMPARISON: 06/30/2017 EXAM PARAMETERS: NUMBER OF VIEWS: One view. TECHNIQUE: Single frontal radiographic view of the chest acquired. RADIATION DOSE: NA LIMITATIONS: None. FINDINGS: LUNGS AND PLEURA: Lungs are hyperinflated. No opacities, masses or pneumothorax. No pleur al effusion. MEDIASTINUM AND HILAR STRUCTURES: No masses. Contour normal. HEART AND VASCULAR STRUCTURES: Heart normal in size. Normal vasculature. BONES: No acute findings. HARDWARE: None in the chest. Cervical spine fixation hardware. OTHER: No other significant finding. IMPRESSION: No acute cardiopulmonary disease. Hyperinflated lungs which can be seen with obstructiv e lung disease. TECHNICAL DOCUMENTATION: JOB ID: [id number] 2010 [employer]- All Rights Reserved Reading location - IP/workstation name: [email or web address]
[2020-02-14 13:27] LABS: NT PRO BNP 1540 pg/mL (<450)
[2020-02-14 13:28] LABS: TROPONIN I < 0.012 ng/mL
[2020-02-14] MEDS ORDERED: NORMAL SALINE 500 ML IV ONE (14:46)
--- NOTE | 2020-02-14 15:10 | ER Document Report ---
Entered by ALVINO FERREIRA SCRIBE 02/14/20 1229 Acting as scribe for:SYD CORTEZ MD ED General - General Stated Complaint: WEAKNESS Primary Care Provider: DERRICK ROGERS PA-C [ALLIED HEALTH PROFESSIONAL] - Follow up as needed Mode of Arrival: Medic Information source: Patient, Relative - Son, Emergency Med Personnel Notes: This 84 year old female patient with a history of chronic kidney disease stage IV presents to the ED via EMS for evaluation of altered mental status. Son at bedside reports that the patient's last known well time was around 1800 yesterday evening and that when his son went to check on her this morning about x1 hour prior to arrival, she was laying face down on the floor. He states that she was "out of it" and her "words weren't right." Patient states that she was trying to go to the bathroom and felt weak and was unable to make it, so she urinated on herself. She reports chronic left-sided weakness and notes a right temporal headache, but denies any nausea or hip/abdominal pain. Son reports that the patient seems more coherent at this time. TRAVEL OUTSIDE OF THE [place] IN LAST 30 DAYS: No - Related Data Allergies/Adverse Reactions: morphine [Morphine] Allergy (Mild, Verified 11/22/19 13:30) Generalized Itching Past Medical History - General Information source: Patient, [facility] Records - Social History Smoking Status: Unknown if Ever Smoked Smoking Education Provided: No Family History: Reviewed & Not Pertinent Patient has suicidal ideation: No Patient has homicidal ideation: No - Past Medical History Cardiac Medical History: Reports: Hx Hypercholesterolemia, Hx Hypertension - BYSTOLIC Pulmonary Medical History: Reports: Hx Asthma, Hx COPD Endocrine Medical History: Reports: Hx Diabetes Mellitus Type 2 - ORAL HYPOGLYCEMICS Renal/ Medical History: Reports: Hx Renal Insufficiency Musculoskeletal Medical History: Reports Hx Arthritis Past Surgical History: Reports: Hx Hysterectomy, Hx Orthopedic Surgery - CERVICAL FUSION X 3 - Immunizations Hx Diphtheria, Pertussis, Tetanus Vaccination: Yes Review of Systems - Review of Systems Constitutional: See HPI, Weakness EENT: No symptoms reported Cardiovascular: No symptoms reported Respiratory: No symptoms reported Gastrointestinal: See HPI. denies: Abdominal pain, Nausea Genitourinary: No symptoms reported Female Genitourinary: No symptoms reported Musculoskeletal: See HPI. denies: Joint pain Skin: No symptoms reported Hematologic/Lymphatic: No symptoms reported Neurological/Psychological: See HPI, Headaches -: Yes All other systems reviewed and negative Physical Exam - General General appearance: Alert In distress: None - HEENT Head: Normocephalic, Atraumatic Eyes: Normal Extraocular movements intact: Yes Pupils: PERRL Mucous membranes: Moist Neck: Normal, Supple - Respiratory Respiratory status: No respiratory distress Chest status: Nontender Breath sounds: Normal Chest palpation: Normal - Cardiovascular Rhythm: Regular Heart sounds: Normal auscultation Murmur: No Friction rub: No Gallop: None auscultated - Abdominal Inspection: Normal Distension: No distension Bowel sounds: Normal Tenderness: Nontender - Abdomen soft Organomegaly: No organomegaly - Back Back: Normal, Nontender - Extremities General upper extremity: Normal inspection General lower extremity: No: Edema Knee: Nontender, Ecchymosis - Left medial knee area. No open wounds - Neurological Neuro grossly intact: Yes Cognition: Normal Orientation: AAOx4 Castella Coma Scale Eye Opening: Spontaneous Mey Coma Scale Verbal: Oriented Mey Coma Scale Motor: Obeys Commands Castella Coma Scale Total: 15 Speech: Dysarthria - mild, speech is slow Cranial nerves: Normal. 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 No: Pronator drift, Weakness Sensory: Normal Notes: Diminished gag reflex - Psychological Associated symptoms: Normal affect, Normal mood - Skin Skin Temperature: Warm Skin Moisture: Dry Skin Color: Normal Course - Re-evaluation Re-evalutation: 02/14/20 16:21 Patient is resting comfortably at this time. 02/14/20 16:24 Per family members patient was last seen well known time last p.m. after they had returned home around 9:30 PM. Patient was found this a.m. on the floor as she is either rolled or fell out of the bed and was lying face down on the floor. Patient was noted to be confused and had slurred speech. The time that patient was found on the floor was somewhere around 1030 1130 a.m. today. Due to there is no known well time prior to yesterday patient did not meet any criteria for an acute stroke protocol. 02/14/20 17:[address] Somers diamond sawer physician for Dr. Coulter. Dr. Somers repeat instructed me to admit patient to IMCU under Dr. Coulter and he will take care of her admission orders. 02/14/20 17:05 1 outstanding note is that we need to learn patients CODE STATUS an hour as the nursing staff to get in touch with patient's family to discuss 1 her findings of having a stroke in 2 with her CODE STATUS is going to be. - Vital Signs Vital signs: Blood pressure is 162/88. - Laboratory Result Diagrams: 02/14/20 12:15 02/14/20 12:15 Laboratory results interpreted by me: 02/14/20 02/14/20 02/14/20 12:15 12:15 12:15 Hct 35.0 L Lymph % (Auto) 9.3 L Seg Neutrophils % 82.5 H Potassium 5.5 H BUN 22 H Est GFR ( Amer) 54 L Est GFR (MDRD) Non-Af 45 L Glucose 127 H AST 56 H ALT 38 H Creatine Kinase 338 H NT-Pro-B Natriuret Pep 1540 H - Diagnostic Test Radiology reviewed: Image reviewed, Reports reviewed Radiology results interpreted by me: 02/14/20 16:14 Chest X-Ray 02/14/20 12:27 IMPRESSION: No acute cardiopulmonary disease. Hyperinflated lungs which can be seen with obstructive lung disease. Head CT 02/14/20 12:49 IMPRESSION: Diffuse small vessel ischemic changes. Possible evolving infarct in the right temporal lobe. Correlation with MR would be helpful if clinically indicated. No intracranial hemorrhage. EVIDENCE OF ACUTE STROKE: YES. Cervical Spine CT 02/14/20 12:52 IMPRESSION: Postsurgical and degenerative changes. No acute fracture. Chest CT 02/14/20 12:55 IMPRESSION: No acute findings in the chest. Abdomen/Pelvis CT 02/14/20 12:57 IMPRESSION: NO SIGNIFICANT OR ACUTE FINDING IN THE ABDOMEN OR PELVIS ON CT SCAN WITH IV CONTRAST. 02/14/20 16:23 Chest x-ray shows no acute pulmonary cardiopulmonary disease. Head CT shows no intracranial hemorrhage but possible evolving infarct in the right temporal lobe with diffuse small vessel ischemic changes. Recommended MRI. Cervical spine shows degenerative changes with no acute fractures chest CT shows no acute chest findings and abdominal pelvis CT showed no significant abdomen or pelvis acute findings. Critical Care Note - Critical Care Note Total time excluding time spent on procedures (mins): 45 - Management of patient with neurological dysarthria lack of gag reflex and generalized confusion. Also management of patient's blood pressure. Discharge - Discharge Clinical Impression: CVA (cerebral vascular accident), Accelerated hypertension Condition: Critical Disposition: ADMITTED INPATIENT Admitting Provider: [facility] Admitted: [facility] Referrals: DERRICK ROGERS PA-C [ALLIED HEALTH PROFESSIONAL] - Follow up as needed ED NIH Stroke Scale - NIH Stroke Scale When completed:: Protocol - Patient has dysarthria and gag reflex absent. *: 1. NIH scale should be completed with appropriate accompanying assessment tools. *: 2. The NIH should reflect what the patient is capable of doing and should not be coached by the clinician. 1a. Level of Consciousness: 0=Alert;keenly responsive -: 1=Drowsy -: 2=Obtunded -: 3=Coma/unresponsive or reflex to noxious stimuli. 1a. Responses: 0 1b. Orientation Questions: a. What month is it? -: b. How old are you? -: 0=Answers both questions correctly. -: 1=Answers one question correctly or patient is intubated or has orotracheal trauma. -: 2=Answers neither question correctly. 1b. Responses: 0 1c. Response to commands: a. Open and close eyes? -: b. Taper/Finisher and release hand? -: Credit is given despite weakness. Demonstration of task is permitted. Substitute command if hands cannot be used. -: 0=Performs both tasks correctly -: 1=Performs one task correctly -: 2=Performs neither task correctly 1c. Responses: 0 2. Gaze: Establish eye contact and instruct patient to "Follow my finger" -: 0=Normal -: 1=Partial gaze palsy. Gaze is abnormal in one or both eyes, but where forced deviation or total gaze paresis is not present. -: 2=Forced deviation or total gaze paresis. 2. Responses: 0 3. Visual Pelayo: Sees fingers in all four quadrants. -: 0=No visual loss. -: 1=Partial hemianopsia. -: 2=Complete hemianopsia. -: 3=Bilateral hemianopsia (including Cortical blindness) 3. Responses: 0 4. Facial Movement: Instruct patient to: -: a. Show me your teeth -: b. Raise your eyebrows -: c. Close your eyes -: d. Smile -: 0=Normal symmetrical movement -: 1=Minor paralysis (flattened nasolabial fold, asymmetry on smiling). -: 2=Partial paralysis (total or near total paralysis of lower face). -: 3=Complete paralysis of upper and lower face 4. Responses: 0 5. Motor functions (left arm): Alternate sides and extend each arm with palms down (90 degrees if sitting or 45 degrees for supine). -: 0=No drift;limb holds for full 10 seconds. -: 1=Drift; limb holds but drifts down before full 10 seconds, but does not hit bed. -: 2=Some effort against gravity; limb cannot get to or maintain position. -: 3=No effort against gravity; limb falls. -: 4=No movement. -: UN=Amputation, joint fusion, explain in comments. 5. Responses (left arm): 0 5. Motor Functions (right arm): Alternate sides and extend each arm with palms down (90 degrees if sitting or 45 degrees for supine). -: 0=No drift;limb holds for full 10 seconds. -: 1=Drift; limb holds but drifts down before full 10 seconds, but does not hit bed. -: 2=Some effort against gravity; limb cannot get to or maintain position. -: 3=No effort against gravity; limb falls. -: 4=No movement. -: UN=Amputation, joint fusion, explain in comments. 5. Responses (right arm): 0 6. Motor Functions (left leg): With patient lying supine, alternate sides and extend each leg (30 degrees always while supine). -: 0=No drift, leg holds position for full 5 seconds -: 1=Drift; leg falls before full 5 seconds but does not hit bed. -: 2=Some effort against gravity, leg falls to bed but some effort against g ravity. -: 3=No effort against gravity, leg falls to bed immediately. -: 4=No movement. -: UN=Amputation, joint fusion; explain in comments. 6. Responses (left leg): 0 6. Motor Functions (right leg): With patient lying supine, alternate sides and extend each leg (30 degrees always while supine). -: 0=No drift, leg holds position for full 5 seconds -: 1=Drift; leg falls before full 5 seconds but does not hit bed. -: 2=Some effort against gravity, leg falls to bed but some effort against gravity. -: 3=No effort against gravity, leg falls to bed immediately. -: 4=No movement. -: UN=Amputation, joint fusion; explain in comments. 6. Responses (right leg): 0 7. Limb Ataxia: With eyes open instruct patient to: -: a. "Touch your finger to your nose". -: b. "Touch your heel to your ruth" -: 0=Absent -: 1=Present in one limb. -: 2=Present in two limbs. -: UN=Amputation or joint fusion; explain in comments. 7. Responses: 0 8. Sensory: Test sensation using pinprick or noxious stimuli. Test as many body parts as possible. -: 0=Normal;no sensory loss -: 1=Mile to moderate sensory loss (patient feels pin prick but is less sharp on affected side). -: 2=Severe or total sensory loss. 8. Responses: 0 9. Best Language: Instruct patient to: -: a. "Describe what you see in this picture." -: b. "Name the items in this picture." -: c. "Read these sentences." -: 0=No aphasia, normal -: 1=Mild to moderate aphasia. -: 2=Severe aphasia -: 3=Mute, global aphasia, no usable speech or auditory comprehension. 9. Responses: 0 10. Articulation, Dysarthia: Instruct patient to: -: "Read these words" or "Repeat these words" -: 0=Normal -: 1=Mild to moderate; patient may slur some words but can be understood without difficulty. -: 2=Severe; patients speech so slurred as to be unintelligible in the absence of dysphasia. -: UN=Intubated or other physical barrier, explain in comments. 10. Responses: 1 11. Extinction or inattention: 0=No abnormality -: 1= Visual, tactile, auditory, spatial, or personal inattention or extinction to bilateral simulation in one or the sensory modalities. -: 2=Profound sepideh-inattention or sepideh-inattention to more than one modality; does not recognize own hand. 11. Responses: 0 Total Score: 1 I personally performed the services described in the documentation, reviewed and edited the documentation which was dictated to the scribe in my presence, and it accurately records my words and actions.
[2020-02-14 15:14] LABS: VENOUS BLOOD BASE EXCESS -1.5 mmol/L; VENOUS BLOOD HCO3 25.4 mmol/L (20-32); VENOUS BLOOD PCO2 51.8 mmHg (35-63); VENOUS BLOOD PH 7.31 (7.30-7.42)
--- NOTE | 2020-02-14 15:38 | RADIOLOGY REPORT (SQ) ---
EXAM DESCRIPTION: CT HEAD WITHOUT IMAGES COMPLETED DATE/TIME: 02/14/2020 3:28 pm REASON FOR STUDY: ams/found on floor/r headache COMPARISON: None. TECHNIQUE: Axial images acquired through the brain without intravenous contrast. Images reviewed wi th bone, brain and subdural windows. Additional sagittal and coronal reconstructions were generated. Images stored on PACS. All CT scanners at this facility use dose modulation, iterative reconstruction, and/or weight based d osing when appropriate to reduce radiation dose to as low as reasonably achievable (ALARA). [facility]: Dose Right [facility]: CareDose [facility]: Dose Right [facility]: Teradose 4D [facility]: Boond RADIATION DOSE: CT Rad equipment meets quality standard of care and radiation dose reduction techniq ues were employed. CTDIvol: 53.2 mGy. DLP: 964 mGy-cm.mGy. LIMITATIONS: None. FINDINGS: VENTRICLES: Prominent. CEREBRUM: No mass or hemorrhage. No midline shift. Decreased attenuation throughout the periventric ular and subcortical white matter. New area of decreased attenuation are least more prominent air de creased attenuation in the right temporal lobe. Developing infarct cannot be excluded. CEREBELLUM: No masses. No hemorrhage. No alteration of density. No evidence for acute infarction. EXTRAAXIAL SPACES: Age-related involutional change. No fluid collections. No masses. ORBITS AND GLOBE: No intra- or extraconal masses. Normal contour of globe without masses. CALVARIUM: No fracture. PARANASAL SINUSES: No fluid or mucosal thickening. SOFT TISSUES: No mass or hematoma. OTHER: No other significant finding. IMPRESSION: Diffuse small vessel ischemic changes. Possible evolving infarct in the right temporal lobe. Correlation with MR would be helpful if clinically indicated. No intracranial hemorrhage. EVIDENCE OF ACUTE STROKE: YES. TECHNICAL DOCUMENTATION: JOB ID: [id number] Quality ID # 436: Final reports with documentation of one or more dose reduction techniques (e.g., Au tomated exposure control, adjustment of the mA and/or kV according to patient size, use of iterative reconstruction technique) 2010 [employer]- All Rights Reserved Reading location - IP/workstation name: [email or web address]
--- NOTE | 2020-02-14 15:40 | RADIOLOGY REPORT (SQ) ---
EXAM DESCRIPTION: CT CERVICAL SPINE WITHOUT IMAGES COMPLETED DATE/TIME: 02/14/2020 3:28 pm REASON FOR STUDY: neck pain/found on floor COMPARISON: 06/24/2019 TECHNIQUE: Axial images acquired through the cervical spine without intravenous contrast. Images re viewed with lung, soft tissue and bone windows. Reconstructed coronal and sagittal MPR images review ed. Images stored on PACS. All CT scanners at this facility use dose modulation, iterative reconstruction, and/or weight based d osing when appropriate to reduce radiation dose to as low as reasonably achievable (ALARA). [facility]: Dose Right [facility]: CareDose [facility]: Dose Right [facility]: Teradose 4D [facility]: [employer]Have[employer] RADIATION DOSE: CT Rad equipment meets quality standard of care and radiation dose reduction techniq ues were employed. CTDIvol: 21.2 mGy. DLP: 393 mGy-cm. mGy. LIMITATIONS: None. FINDINGS: ALIGNMENT: Anatomic. MINERALIZATION: Normal. VERTEBRAL BODIES: No fractures or dislocation. DISCS: Multilevel disc space narrowing with osteophytes. FACETS, LATERAL MASSES, POSTERIOR ELEMENTS: Facet arthropathy. No fractures. No dislocation. No ac clint findings. HARDWARE: Hardware from the C4 level through C6-C7. VISUALIZED RIBS: No fractures. LUNG APICES AND SOFT TISSUES: No significant or acute findings. OTHER: No other significant finding. IMPRESSION: Postsurgical and degenerative changes. No acute fracture. TECHNICAL DOCUMENTATION: JOB ID: [id number] Quality ID # 436: Final reports with documentation of one or more dose reduction techniques (e.g., Au tomated exposure control, adjustment of the mA and/or kV according to patient size, use of iterative reconstruction technique) 2010 [employer]- All Rights Reserved Reading location - IP/workstation name: [email or web address]
--- NOTE | 2020-02-14 15:44 | RADIOLOGY REPORT (SQ) ---
EXAM DESCRIPTION: CT CHEST WITH IMAGES COMPLETED DATE/TIME: 02/14/2020 3:31 pm REASON FOR STUDY: syncope/collapse COMPARISON: None. TECHNIQUE: CT scan of the chest performed using helical scanning technique with dynamic intravenous contrast injection. Images reviewed with lung, soft tissue and bone windows. Reconstructed coronal and sagittal MPR and MIP images reviewed. All images stored on PACS. All CT scanners at this facility use dose modulation, iterative reconstruction, and/or weight based d osing when appropriate to reduce radiation dose to as low as reasonably achievable (ALARA). [facility]: Dose Right [facility]: CareDose [facility]: Dose Right [facility]: Teradose 4D [facility]: [employer] CONTRAST TYPE AND DOSE: contrast/concentration: Isovue mmol/ml; Total Contrast Delivered: 79.5 ml; Total Saline Delivered: 10.0 ml RENAL FUNCTION: BUN 22, creatinine 1.16 RADIATION DOSE: CT Rad equipment meets quality standard of care and radiation dose reduction techniq ues were employed. CTDIvol: 17.8 - 25.0 mGy. DLP: 2751 mGy-cm. . LIMITATIONS: None. FINDINGS: LUNGS AND PLEURA: No consolidations. No pneumothorax. Scattered areas of nonspecific ple ural thickening HILAR AND MEDIASTINAL STRUCTURES: No identified masses or abnormal nodes. HEART AND VASCULAR STRUCTURES: No aneurysm or dissection. No central pulmonary emboli. No pericardi al effusion. HARDWARE: None in the chest. UPPER ABDOMEN: No significant findings. Limited exam. THYROID AND OTHER SOFT TISSUES: No masses. No adenopathy. BONES: Degenerative changes in the dorsal spine. No acute compression fractures. Old kyphoplasty ch anges at L1. Calcification within the disc space at T10-T11. OTHER: No other significant finding. IMPRESSION: No acute findings in the chest. TECHNICAL DOCUMENTATION: JOB ID: [id number] Quality ID # 436: Final reports with documentation of one or more dose reduction techniques (e.g., Au tomated exposure control, adjustment of the mA and/or kV according to patient size, use of iterative reconstruction technique) 2010 [employer]- All Rights Reserved Reading location - IP/workstation name: [email or web address]
--- NOTE | 2020-02-14 15:48 | RADIOLOGY REPORT (SQ) ---
EXAM DESCRIPTION: CT ABD/PELVIS WITH IV ONLY IMAGES COMPLETED DATE/TIME: 02/14/2020 3:31 pm REASON FOR STUDY: syncope/collapse/ams COMPARISON: 01/01/2019 TECHNIQUE: CT scan of the abdomen and pelvis performed using helical scanning technique with dynamic intravenous contrast injection. No oral contrast. Images reviewed with lung, soft tissue, and bone windows. Reconstructed coronal and sagittal MPR images reviewed. Delayed images for evaluation of the urinary system also acquired. All images stored on PACS. All CT scanners at this facility use dose modulation, iterative reconstruction, and/or weight based d osing when appropriate to reduce radiation dose to as low as reasonably achievable (ALARA). [facility]: Dose Right [facility]: CareDose [facility]: Dose Right [facility]: Teradose 4D [facility]: [employer] CONTRAST TYPE AND DOSE: 80 mL Omnipaque 350- low osmolar. RENAL FUNCTION: BUN 22, creatinine 1.16 RADIATION DOSE: . LIMITATIONS: None. FINDINGS: LOWER CHEST: No significant findings. No nodules or infiltrates. LIVER: Stable in appearance. Liver measures just under 18 cm in cranial caudal dimensions. No focal lesions. SPLEEN: Normal size. No focal lesions. PANCREAS: No masses. No significant calcifications. No adjacent inflammation or peripancreatic fluid collections. Pancreatic duct not dilated. GALLBLADDER: No identified stones by CT criteria. No inflammatory changes to suggest cholecystitis. ADRENAL GLANDS: No significant masses or asymmetry. RIGHT KIDNEY AND URETER: No solid masses. No significant calcifications. No hydronephrosis or hyd roureter. LEFT KIDNEY AND URETER: No solid masses. No significant calcifications. No hydronephrosis or hydr oureter. AORTA AND VESSELS: No aneurysm. No dissection. Renal arteries, SMA, celiac without stenosis. RETROPERITONEUM: No retroperitoneal adenopathy, hemorrhage or masses. BOWEL AND PERITONEAL CAVITY: No masses or inflammatory changes. No free fluid or peritoneal masses. APPENDIX: Not visualized. PELVIS: No mass. No free fluid. Normal bladder. ABDOMINAL WALL: No masses. No hernias. BONES: No significant or acute findings. OTHER: No other significant finding. IMPRESSION: NO SIGNIFICANT OR ACUTE FINDING IN THE ABDOMEN OR PELVIS ON CT SCAN WITH IV CONTRAST. TECHNICAL DOCUMENTATION: JOB ID: [id number] Quality ID # 436: Final reports with documentation of one or more dose reduction techniques (e.g., Au tomated exposure control, adjustment of the mA and/or kV according to patient size, use of iterative reconstruction technique) 2010 [employer]- All Rights Reserved Reading location - IP/workstation name: [email or web address]
[2020-02-14 16:05] LABS: APPEARANCE,URINE CLEAR; BILIRUBIN,URINE NEGATIVE (NEGATIVE); COLOR,URINE YELLOW; GLUCOSE, URINE NEGATIVE (NEGATIVE); KETONES,URINE NEGATIVE (NEGATIVE); LEUKOCYTE ESTERASE,URINE NEGATIVE (NEGATIVE); NITRITE,URINE NEGATIVE (NEGATIVE); PROTEIN,URINE NEGATIVE (NEGATIVE); URINE SPECIFIC GRAVITY 1.018; UROBILINOGEN,URINE NEGATIVE mg/dL (<2.0)
--- NOTE | 2020-02-14 18:17 | EKG REPORT ---
SEVERITY:- NORMAL ECG - SINUS RHYTHM : Confirmed by: Yeison Millan MD 14-Feb-2020 18:16:12
[2020-02-14] MEDS ORDERED: ACETAMINOPHEN 325 MG TABLET PO ONE (18:27)
[2020-02-14] MEDS ORDERED: LABETALOL HCL INJ 20 MG/4 ML DISP.SYRIN IV PRN (20:42)
[2020-02-15] MEDS: ATORVASTATIN CALCIUM 80 MG TABLET PO SCH ×2 (01:15→01:42)
[2020-02-15] MEDS: ACETAMINOPHEN 325 MG TABLET PO PRN ×2 (01:15→01:39)
[2020-02-15 01:27] LABS: CREATINE KINASE MB 3.27 ng/mL (<4.55); TROPONIN I 0.018 ng/mL
[2020-02-15 06:52] LABS: CREATINE KINASE MB 4.75 ng/mL (<4.55); TROPONIN I 0.033 ng/mL
--- NOTE | 2020-02-15 09:11 | EKG REPORT ---
SEVERITY:- NORMAL ECG - SINUS RHYTHM : Confirmed by: Yeison Millan MD 15-Feb-2020 09:11:14
[2020-02-15] MEDS ORDERED: ASPIRIN 81 MG TABLET, ENT COATED PO SCH (10:00)
[2020-02-15] MEDS ORDERED: DEXTROSE 40% GEL 15 GM TUBE PO PRN ×2 (10:44)
[2020-02-15] MEDS ORDERED: GLUCAGON,HUMAN RECOMB 1 MG INJ SUBCUT PRN (10:44)
[2020-02-15] MEDS ORDERED: DEXTROSE 50%-WATER 25 GM/50 ML DISP.SYRIN IV PRN ×2 (10:44)
--- NOTE | 2020-02-15 13:54 | RADIOLOGY REPORT (SQ) ---
EXAM DESCRIPTION: MRA NECK WITHOUT; MRA HEAD WITHOUT IMAGES COMPLETED DATE/TIME: 02/15/2020 1:29 pm REASON FOR STUDY: cva COMPARISON: MR brain separately dictated same date. TECHNIQUE: Axial 2-D volume acquisition imaging through the extracranial carotid and vertebral arter ies with reformatting using 3-D MIPS. Additional scanning through the intracranial arteries with 3D MIPS. LIMITATIONS: Considerably limiting motion artifact on the neck MRA. Head MRA a source images field of view mildly limited. Adequate reconstructions obtained. FINDINGS: RIGHT CAROTID ARTERY: Grossly patent without high-grade stenosis or occlusion. LEFT CAROTID ARTERY: Grossly patent without high-grade stenosis or occlusion. VERTEBRAL ARTERY: Left vertebral artery patent. Right vertebral is either extremely diminutive or in completely patent. Motion artifact limits. OTHER: No other significant finding. INTRACRANIAL ARTERIES: Grossly patent proximal bilateral anterior and posterior cerebral arteries. Patent left middle cerebral artery. The proximal right middle cerebral artery is patent but appears occluded proximal to branching. No flow is seen distally in the right MCA distribution. IMPRESSION: 1. Allowing for motion, MRA of the carotids is normal. 2. 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 Please see separately dictated MRI brain fro m same date. Call Report tasked to the [facility] CORE team at the time of interpretation. COMMENT: Quality ID #[id number]: Measurements of distal internal carotid diameter were used as the denomin ator for stenosis measurement. TECHNICAL DOCUMENTATION: JOB ID: [id number] 2010 [employer]- All Rights Reserved Reading location - IP/workstation name: [email or web address]
--- NOTE | 2020-02-15 14:02 | RADIOLOGY REPORT (SQ) ---
EXAM DESCRIPTION: MRI HEAD WITHOUT IMAGES COMPLETED DATE/TIME: 02/15/2020 1:29 pm REASON FOR STUDY: cva COMPARISON: CT 02/14/2020. MRA imaging separately dictated same date. TECHNIQUE: Multiplanar imaging includes non-contrasted T1, T2, FLAIR, and diffusion with ADC map seq uences. Images stored on PACS. LIMITATIONS: None. FINDINGS: ANATOMY: No anomalies. Normal vascular flow voids. Pituitary fossa normal. CSF SPACES: Normal in size and contour. No hemorrhage. CEREBRUM: Sulci and gyri normal in size and contour. Normal white matter signal on FLAIR imaging. No evidence of hemorrhage, mass, or extraaxial fluid collection. POSTERIOR FOSSA: No signal alteration. No hemorrhage. No edema, masses or mass effect. Internal marge tory canals, cerebello-pontine angles, mastoids normal. DIFFUSION IMAGING: Abnormal, diffuse restricted diffusion in the right MCA distribution consistent wi th recent infarct. ORBITS: No masses. Globes normal. PARANASAL SINUSES: Mild dependent fluid in the sphenoid sinus. OTHER: No other significant finding. IMPRESSION: 1. Positive diffusion, recent MCA distribution infarct. Call report tasked to the [facility] CORE team at the time of interpretation. EVIDENCE OF ACUTE STROKE: YES. RIGHT MCA TECHNICAL DOCUMENTATION: JOB ID: [id number] 2010 [employer]- All Rights Reserved Reading location - IP/workstation name: [email or web address]
[2020-02-15 15:12] LABS: CREATINE KINASE MB 4.95 ng/mL (<4.55); TROPONIN I 0.029 ng/mL
--- NOTE | 2020-02-15 16:03 | PDOC H&P ---
History of Present Illness Admission Date/PCP: 02/14/20 17:20 ESTUARDO OCASIO MD History of Present Illness: NICOLETTE COHEN is a 84 year old female, she was brought to the emergency room for evaluation of altered mental status, she has a history of type 2 diabetes mellitus, chronic kidney disease stage IV history was that the son found the patient face down on the floor is said that she was confused and very dysarthric, she tried to get to the bathroom but she could not and she urinated on herself there is questionable chronic left-sided weakness she also headache. She was evaluated in the emergency room, she had a CAT scan of the head demonstrated diffuse small vessel ischemic changes possible evolving infarct in the right temporal lobe MRI recommended she also had CT scan of the cervical spine, chest and the abdomen which all came back negative, the CT scan was done to evaluate for post fall complications because of this onset if Renetta on the floor face down no one knows along she has be on the floor for. MRI of the brain was done demonstrated abnormal diffusion image with diffuse restricted diffusion in the right MCA distribution consistent with acute infarct. When I saw the patient on the floor she has left-sided weakness which correlates with right MCA infarct. 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 Past Medical History Cardiac Medical History: Reports: Hyperlipidema, Hypertension - BYSTOLIC Pulmonary Medical History: Reports: Asthma, Chronic Obstructive Pulmonary Disease (COPD) Endocrine Medical History: Reports: Diabetes Mellitus Type 2 - ORAL HYPOGLYCEMICS Musculoskeltal Medical History: Reports: Arthritis Past Surgical History Past Surgical History: Reports: Hysterectomy, Orthopedic Surgery - CERVICAL FUSION X 3 Social History Smoking Status: Former Smoker Family History Family History: Reviewed & Not Pertinent Parental Family History Reviewed: Yes Children Family History Reviewed: Yes Sibling(s) Family History Reviewed.: Yes Medication/Allergy Home Medications: Gabapentin 800 mg PO TID PRN 11/21/14 Nebivolol HCl [Bystolic 10 mg Tablet] 5 mg PO DAILY 11/21/14 Atorvastatin Calcium [Lipitor 20 mg Tablet] 20 mg PO DAILY 06/24/19 Budesonide/Formoterol Fumarate [Symbicort HFA 160-4.5 mcg Inhaler 6 gm] 2 puff IH BID 06/24/19 Cetirizine HCl [Zyrtec 10 mg Tablet] 10 mg PO DAILY 06/24/19 Hydrocodone/Acetaminophen [[place] 10-325 Tablet] 1.5 tab PO BID 06/24/19 Ipratropium/Albuterol Sulfate [Combivent Respimat 4 gm Mdi] 1 puff IH QIDP PRN 06/24/19 Levothyroxine Sodium [Synthroid 0.025 mg Tablet] 50 mcg PO DAILY 06/24/19 Linagliptin [Tradjenta] 5 mg PO DAILY 06/24/19 Montelukast Sodium 10 mg PO DAILY 06/24/19 Nitroglycerin 0.4 mg SL PRN PRN 06/24/19 Oxybutynin Chloride [Ditropan Xl] 5 mg PO QHS 06/24/19 Mometasone Furoate 2 applic TP BID 11/22/19 Omeprazole 40 mg PO BID 11/22/19 Umeclidinium [place] [Incruse Ellipta] 1 puff IH DAILY 11/22/19 Calcitriol [Rocaltrol 0.25 Mcg Capsule] 1 cap PO MOFR@1000 02/14/20 Allergies/Adverse Reactions: morphine [Morphine] Allergy (Mild, Verified 11/22/19 13:30) Generalized Itching Review of Systems Constitutional: ABSENT: chills, fever(s), headache(s), weight gain, weight loss Eyes: ABSENT: visual disturbances Ears: ABSENT: hearing changes Nose, Mouth, and Throat: PRESENT: headache(s) Cardiovascular: ABSENT: chest pain, dyspnea on exertion, edema, orthropnea, palpitations Respiratory: ABSENT: cough, hemoptysis Gastrointestinal: ABSENT: abdominal pain, constipation, diarrhea, hematemesis, hematochezia, nausea, vomiting Genitourinary: ABSENT: dysuria, hematuria Musculoskeletal: ABSENT: joint swelling Integumentary: ABSENT: rash, wounds Neurological: PRESENT: abnormal gait, focal weakness, frequent falls, numbness, paresthesias, weakness Psychiatric: ABSENT: anxiety, depression, homidical ideation, suicidal ideation Endocrine: ABSENT: cold intolerance, heat intolerance, menstrual abnormalities, polydipsia, polyuria Hematologic/Lymphatic: ABSENT: easy bleeding, easy bruising, lymphadenopathy Physical Exam Vital Signs: Temp Pulse Resp BP Pulse Ox 98.0 F 85 16 101/49 L 97 02/15/20 13:46 02/15/20 13:46 02/15/20 13:46 02/15/20 13:46 02/15/20 13:46 Intake & Output 02/14/20 02/15/20 02/16/20 06:59 06:59 05:59 Intake Total 500 350 Output Total 1150 Balance -650 350 Weight 75.9 kg 75.9 kg General appearance: PRESENT: obese Head exam: PRESENT: atraumatic, normocephalic Eye exam: PRESENT: PERRLA Ear exam: PRESENT: normal external ear exam Mouth exam: PRESENT: moist, tongue midline Neck exam: PRESENT: full ROM Respiratory exam: PRESENT: clear to auscultation kary Cardiovascular exam: PRESENT: RRR, +S1, +S2 Vascular exam: PRESENT: normal capillary refill GI/Abdominal exam: PRESENT: normal bowel sounds, soft Rectal exam: PRESENT: deferred Neurological exam: PRESENT: alert, other - There is left-sided hemiparesis Psychiatric exam: PRESENT: appropriate affect, normal mood Skin exam: PRESENT: dry, intact, warm Results Laboratory Results: 02/14/20 12:15 02/14/20 12:15 02/14/20 15:42 Urine Color YELLOW Urine Appearance CLEAR Urine pH 7.0 Ur Specific [place] 1.018 Urine Protein NEGATIVE Urine Glucose (UA) NEGATIVE Urine Ketones NEGATIVE Urine Blood NEGATIVE Urine Nitrite NEGATIVE Ur Leukocyte Esterase NEGATIVE Urine WBC (Auto) 3 Urine RBC (Auto) 0 02/14/20 02/14/20 02/15/20 12:15 12:15 00:35 Creatine Kinase 338 H 365 H CK-MB (CK-2) Troponin I < 0.012 NT-Pro-B Natriuret Pep 1540 H 02/15/20 02/15/20 02/15/20 00:35 05:50 05:50 Creatine Kinase 430 H CK-MB (CK-2) 3.27 4.75 H Troponin I 0.018 0.033 NT-Pro-B Natriuret Pep 02/15/20 02/15/20 14:14 14:14 Creatine Kinase 470 H CK-MB (CK-2) 4.95 H Troponin I 0.029 NT-Pro-B Natriuret Pep Impressions: Chest X-Ray 02/14/20 12:27 IMPRESSION: No acute cardiopulmonary disease. Hyperinflated lungs which can be seen with obstructive lung disease. Head CT 02/14/20 12:49 IMPRESSION: Diffuse small vessel ischemic changes. Possible evolving infarct in the right temporal lobe. Correlation with MR would be helpful if clinically indicated. No intracranial hemorrhage. EVIDENCE OF ACUTE STROKE: YES. Cervical Spine CT 02/14/20 12:52 IMPRESSION: Postsurgical and degenerative changes. No acute fracture. Chest CT 02/14/20 12:55 IMPRESSION: No acute findings in the chest. Abdomen/Pelvis CT 02/14/20 12:57 IMPRESSION: NO SIGNIFICANT OR ACUTE FINDING IN THE ABDOMEN OR PELVIS ON CT SCAN WITH IV CONTRAST. Brain MRI with MRA 02/15/20 00:00 IMPRESSION: 1. Allowing for motion, MRA of the carotids is normal. 2. 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 Please see separately dictated MRI brain from same date. Call Report tasked to the [facility] team at the time of interpretation. Head MRI 02/15/20 00:00 IMPRESSION: 1. Positive diffusion, recent MCA distribution infarct. Call report tasked to the [facility] CORE team at the time of interpretation. EVIDENCE OF ACUTE STROKE: YES. RIGHT MCA Neck MRA 02/15/20 00:00 IMPRESSION: 1. Allowing for motion, MRA of the carotids is normal. 2. 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 Please see separately dictated MRI brain from same date. Call Report tasked to the [facility] CORE team at the time of i nterpretation. 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 Is this a current diagnosis for this admission?: Yes Plan: There is occlusion of the right middle cerebral artery from the MRA there is probably in situ thrombosis (3) T2DM (type 2 diabetes mellitus) Qualifiers: Diabetes mellitus longterm insulin use: without termite 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 use Diabetes mellitus complication status: with neurologic complications Diabetes mellitus complication detail: with polyneuropathy Qualified Code(s): E11.42 - Type 2 diabetes mellitus with diabetic polyneuropathy Is this a current diagnosis for this admission?: Yes - Time Time Spent: Greater than 70 Minutes Medications reviewed and adjusted accordingly: Yes Anticipated Discharge Disposition: Home, Self Care Anticipated Discharge Timeframe: within 72 hours - Inpatient Certification Based on my medical assessment, after consideration of the patient's comorbidities, presenting symptoms, or acuity I expect that the services needed warrant INPATIENT care.: Yes I certify that my determination is in accordance with my understanding of Medicare's requirements for reasonable and necessary INPATIENT services [42 CFR 412.3e].: Yes
--- NOTE | 2020-02-15 16:08 | PDOC PROGRESS REPORT ---
Subjective Progress Note for:: 02/15/20 Subjective:: Patient at increased risk of aspiration it is not safe to administer oral medications including aspirin, she will be treated rectally with aspirin, she will need to be evaluated by speech Reason For Visit: CVA (CEREBAL VASCULAR ACCIDENT) Physical Exam Vital Signs: Temp Pulse Resp BP Pulse Ox 98.0 F 85 16 101/49 L 97 02/15/20 13:46 02/15/20 13:46 02/15/20 13:46 02/15/20 13:46 02/15/20 13:46 Intake & Output 02/14/20 02/15/20 02/16/20 06:59 06:59 05:59 Intake Total 500 350 Output Total 1150 Balance -650 350 Weight 75.9 kg 75.9 kg General appearance: PRESENT: no acute distress, well-developed, well-nourished Head exam: PRESENT: atraumatic, normocephalic Eye exam: PRESENT: conjunctiva pink, EOMI, PERRLA Ear exam: PRESENT: normal external ear exam Mouth exam: PRESENT: moist, tongue midline Neck exam: PRESENT: full ROM. ABSENT: carotid bruit, JVD, lymphadenopathy, thyromegaly Cardiovascular exam: PRESENT: RRR. ABSENT: diastolic murmur, rubs, systolic murmur Pulses: PRESENT: normal dorsalis pedis pul, +2 pedal pulses bilateral Vascular exam: PRESENT: normal capillary refill GI/Abdominal exam: PRESENT: normal bowel sounds, soft Rectal exam: PRESENT: deferred Neurological exam: PRESENT: alert, other - left sided hemiparesis Psychiatric exam: PRESENT: appropriate affect, normal mood Skin exam: PRESENT: dry, intact, warm Results Laboratory Results: 02/14/20 12:15 02/14/20 12:15 02/14/20 15:42 Urine Color YELLOW Urine Appearance CLEAR Urine pH 7.0 Ur Specific [place] 1.018 Urine Protein NEGATIVE Urine Glucose (UA) NEGATIVE Urine Ketones NEGATIVE Urine Blood NEGATIVE Urine Nitrite NEGATIVE Ur Leukocyte Esterase NEGATIVE Urine WBC (Auto) 3 Urine RBC (Auto) 0 02/14/20 02/14/20 02/15/20 12:15 12:15 00:35 Creatine Kinase 338 H 365 H CK-MB (CK-2) Troponin I < 0.012 NT-Pro-B Natriuret Pep 1540 H 02/15/20 02/15/2002/14/20 00:35 05:50 05:50 Creatine Kinase 430 H CK-MB (CK-2) 3.27 4.75 H Troponin I 0.018 0.033 NT-Pro-B Natriuret Pep 02/15/20 02/15/20 14:14 14:14 Creatine Kinase 470 H CK-MB (CK-2) 4.95 H Troponin I 0.029 NT-Pro-B Natriuret Pep Impressions: Chest X-Ray 02/14/20 12:27 IMPRESSION: No acute cardiopulmonary disease. Hyperinflated lungs which can be seen with obstructive lung disease. Head CT 02/14/20 12:49 IMPRESSION: Diffuse small vessel ischemic changes. Possible evolving infarct in the right temporal lobe. Correlation with MR would be helpful if clinically indicated. No intracranial hemorrhage. EVIDENCE OF ACUTE STROKE: YES. Cervical Spine CT 02/14/20 12:52 IMPRESSION: Postsurgical and degenerative changes. No acute fracture. Chest CT 02/14/20 12:55 IMPRESSION: No acute findings in the chest. Abdomen/Pelvis CT 02/14/20 12:57 IMPRESSION: NO SIGNIFICANT OR ACUTE FINDING IN THE ABDOMEN OR PELVIS ON CT SCAN WITH IV CONTRAST. Brain MRI with MRA 02/15/20 00:00 IMPRESSION: 1. Allowing for motion, MRA of the carotids is normal. 2. 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 Please see separately dictated MRI brain from same date. Call Report tasked to the [facility] team at the time of interpretation. Head MRI 02/15/20 00:00 IMPRESSION: 1. Positive diffusion, recent MCA distribution infarct. Call report tasked to the [facility] team at the time of interpretation. EVIDENCE OF ACUTE STROKE: YES. RIGHT MCA Neck MRA 02/15/20 00:00 IMPRESSION: 1. Allowing for motion, MRA of the carotids is normal. 2. 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 Please see separately dictated MRI brain from same date. Call Report tasked to the [facility] team at the time of interpretation. Assessment & Plan - Diagnosis (1) Acute right MCA stroke Is this a current diagnosis for this admission?: Yes Plan: Continue anti-ischemic therapy (2) Occlusion of right middle cerebral artery Is this a current diagnosis for this admission?: Yes (3) T2DM (type 2 diabetes mellitus) Qualifiers: Diabetes mellitus terminal clerk insulin use: without fdc use Diabetes mellitus complication status: with neurologic complications Diabetes mellitus complication detail: with polyneuropathy Qualified Code(s): E11.42 - Type 2 diabetes mellitus with diabetic polyneuropathy Is this a current diagnosis for this admission?: Yes - Time Time Spent with patient: 25-34 minutes Level of Care: IMCU Medications reviewed and adjusted accordingly: Yes Anticipated discharge: Home Anticipated DC Timeframe: Other
[2020-02-15] MEDS: ASPIRIN 600 MG SUPP, RECTAL PR SCH (17:17)
[2020-02-16] MEDS: ATORVASTATIN CALCIUM 80 MG TABLET PO SCH ×2 (03:04→23:00)
[2020-02-16] MEDS ORDERED: INFLUENZA QUAD (6MOS+) 2020-21 VAC 0.5 ML SYR IM ONE (08:00)
[2020-02-16] MEDS: ASPIRIN 600 MG SUPP, RECTAL PR SCH (11:39)
--- NOTE | 2020-02-16 14:22 | PDOC PROGRESS REPORT ---
Subjective Progress Note for:: 02/16/20 Subjective:: Patient at increased risk of aspiration it is not safe to administer oral medications including aspirin, she will be treated rectally with aspirin, she will need to be evaluated by speech 02/16/2020 Patient with stroke he has occlusion of the right middle cerebral artery, I spoke to the son about her mother's condition, I am not sure she is a good candidate for intervention, she is a full code, she is still at risk of stroke, will keep blood pressure relatively high for few days Reason For Visit: CVA (CEREBAL VASCULAR ACCIDENT) Physical Exam Vital Signs: Temp Pulse Resp BP Pulse Ox 97.5 F 99 16 150/95 H 99 02/16/20 11:32 02/16/20 11:32 02/16/20 11:32 02/16/20 11:32 02/16/20 11:32 Intake & Output 02/15/20 02/16/20 02/17/20 07:59 06:59 06:59 Intake Total Output Total 200 Balance -200 Weight General appearance: PRESENT: no acute distress Eye exam: PRESENT: PERRLA Respiratory exam: PRESENT: clear to auscultation kary Cardiovascular exam: PRESENT: +S1, +S2 GI/Abdominal exam: PRESENT: soft Neurological exam: PRESENT: alert, motor sensory deficit Results Laboratory Results: 02/14/20 12:15 02/14/20 12:15 02/14/20 02/14/20 02/15/20 12:15 12:15 00:35 Creatine Kinase 338 H 365 H CK-MB (CK-2) Troponin I < 0.012 NT-Pro-B Natriuret Pep 1540 H 02/15/20 02/15/20 02/15/20 00:35 05:50 05:50 Creatine Kinase 430 H CK-MB (CK-2) 3.27 4.75 H Troponin I 0.018 0.033 NT-Pro-B Natriuret Pep 02/15/20 02/15/20 14:14 14:14 Creatine Kinase 470 H CK-MB (CK-2) 4.95 H Troponin I 0.029 NT-Pro-B Natriuret Pep Impressions: Chest X-Ray 02/14/20 12:27 IMPRESSION: No acute cardiopulmonary disease. Hyperinflated lungs which can be seen with obstructive lung disease. Head CT 02/14/20 12:49 IMPRESSION: Diffuse small vessel ischemic changes. Possible evolving infarct in the right temporal lobe. Correlation with MR would be helpful if clinically indicated. No intracranial hemorrhage. EVIDENCE OF ACUTE STROKE: YES. Cervical Spine CT 02/14/20 12:52 IMPRESSION: Postsurgical and degenerative changes. No acute fracture. Chest CT 02/14/20 12:55 IMPRESSION: No acute findings in the chest. Abdomen/Pelvis CT 02/14/20 12:57 IMPRESSION: NO SIGNIFICANT OR ACUTE FINDING IN THE ABDOMEN OR PELVIS ON CT SCAN WITH IV CONTRAST. Brain MRI with MRA 02/15/20 00:00 IMPRESSION: 1. Allowing for motion, MRA of the carotids is normal. 2. 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 Please see separately dictated MRI brain from same date. Call Report tasked to the [facility] team at the time of interpretation. Head MRI 02/15/20 00:00 IMPRESSION: 1. Positive diffusion, recent MCA distribution infarct. Call report tasked to the [facility] team at the time of interpretation. EVIDENCE OF ACUTE STROKE: YES. RIGHT MCA Neck MRA 02/15/20 00:00 IMPRESSION: 1. Allowing for motion, MRA of the carotids is normal. 2. 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 Please see separately dictated MRI brain from same date. Call Report tasked to the [facility]ORE team at the time of int erpretation. 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
[2020-02-16] MEDS: ACETAMINOPHEN 325 MG TABLET PO PRN (15:14)
[2020-02-16] MEDS: ENOXAPARIN SODIUM INJ 40 MG/0.4 ML DISP.SYRIN SUBCUT SCH (15:16)
[2020-02-17] MEDS ORDERED: IPRATROPIUM/ALBUTEROL 0.5-2.5 MG/3 ML AMPUL NEB PRN (09:44)
[2020-02-17] MEDS: ASPIRIN 600 MG SUPP, RECTAL PR SCH (10:00)
[2020-02-17] MEDS: ENOXAPARIN SODIUM INJ 40 MG/0.4 ML DISP.SYRIN SUBCUT SCH (10:04)
--- NOTE | 2020-02-17 10:40 | ST Inp Modified Barium Swallow ---
Medical Diagnosis - Medical Diagnoses Medical Diagnosis Description & ICD-10 Code(s): acute Right MCA stroke, dysphagia R13.10, R13.12 - ICD-10 Tx Diagnosis Coding (1) Acute right MCA stroke ICD-10 Code(s): I63.511 - CEREB INFRC D/T UNSP OCCLS OR STENOS OF RIGHT MID CE TATIANA ART (2) CVA (cerebral vascular accident) ICD-10 Code(s): I63.9 - CEREBRAL INFARCTION, UNSPECIFIED ST Inpatient MBS - General Date: 02/17/20 Date of Onset: 02/14/20 - History -: Medical - per EMR: patient admitted 02/14/20 after being found on the floor by her son with altered mental status and dysarthria. MRI revealed acute stroke involving right middle cerebral artery. Prior medical history includes diabetes, chronic kidney disease. Patient reportedly passed nursing swallow screen in the ED, however, nursing later noted difficulty swallowing with medications. Repeat swallow screen was completed, patient failed and was made NPO. Per the patient's son, the patient has a history of swallowing difficulty involving her esophagus, had prior dialation. Speech evaluation order was placed on 02/14 at 12:42, however, not signed by physician. Dr. Somers did document in progress note on 02/14 at 16:04, "will need to be evaluated by speech". At bedside, patient demonstrated overt signs of aspiration with liquids, as well poor oral phase with solids and liquids. MBSS recommended to further assess for aspiration risk and pharyngeal phase skills. Telephone order received from Dr. Coulter this morning. Medications: Medications Reviewed Allergies: Refer to medical record - Subjective Current Nutritional Means: NPO Current PO Diet: N/A (NPO) - ice chips and meds crushed only Current Symptoms: Coughing, Spillage Pain: Patient reports, 0/5 - Objective Assessment: Upright, Left Lateral - Food Trials Food Trials Used: Thin liquids, Slater thick liquids, Pureed The Patient: Required Assist - Assessment Labial Function: Impaired - left side loss of liquid seen consistently, poor labial seal Lingual Function: Within Functional Limits Dentition: Partial Velo-Pharyngeal Function: Unremarkable Laryngeal Function: clear voicing - Pharyngeal Stage Initiation of Pharyngeal Stage: Delayed - patient demonstrated oral holding of solids, with liquids delay of up to 6 seconds observed with spillage into valleculae and pyriform sinus Decreased Laryngeal Elevation: Yes Reduced Velo-Pharyngeal Closure: no Reduced Pressure Generation: Yes Pre-Swallowing Pooling in Valleculae: Significant Pre-Swallowing Pooling in Pyriforms: Moderate Reduced Epiglottic Excursion: Yes Multiple Swallows With: Ineffective Clearance Post Swallow Residuals in Valleculae: Significant Post Swallow Residuals in Pyriforms: Mild Post Swallow Residuals: throughout pharynx - patient noted to have poor sensation/awareness of residue - Impression/Summary Laryngeal Penetration: Yes - deep penetration seen before and on the swallow with thin liquids and nectar thick liquids. Strong cough reflex seen which appea red to clear penetrated material. Penetration also occured after the swallow with residuals from valleculae falling into laryngeal vestibule. Tracheal Aspiration: no - no observed aspiration on this study, however, patient is at high risk due to swallow delay and pharyngeal residue. Productive Cough: Yes Effective Clearing: yes Compensatory Strategies: Attempted to talk patient through dysphagia strategies and techniques (hard swallow, throat clear and re-swallow), however, patient was unable to effectively follow directions to use strategies. Patient Presents With: Oral-Pharyngeal dysph. - moderate Risk of Aspiration: Severe Risk of Nutritional Compromise: Severe Risk Due To: Patient has poor swallow initiation, which resulted in bolus falling from oral cavity to valleculae and pyriform sinus prior to pharyngeal swallow initiating. This led to deep penetration of liquids, thin and nectar. Patient was able to cough and apparently clear penetrated material. Significant residue seen in valleculae and moderate in pyriform sinus after the swallow. Patient needed verbal and tactile cue to complete additional swallows to clear. Patient also demonstrated significant oral residue and holding with nectar liquids as well as puree solids, requiring max cues to swallow to clear oral residue. Patient never fully cleared bite of pudding from oral cavity, therapist used swab to remove residue, howeveer, patient consistently tried to close mouth on swab despite frequent redirection to keep mouth open. - Recommendations Solid Diet Recommendations: Pureed Liquid Diet Recommendations: Thin Strict Aspitarion Precautions: Yes Dysphagia Therapy with MOLECULAR GENETIC PATHOLOGIST: Yes Recommended Techniques: Fully Upright During Meal, Check Mouth for Pocketing, Med Crushed in Applesauce, Small Bites and Sips Supervision: requires assistance Other Recommendations: Recommend puree solids and thin liquids by cup only. Patient is still at risk of aspiration on this diet, and will need assistance with meals as well as strict aspiration precautions. There is some concern for amount of intake due to patient's poor attention to PO trials. Telephone order obtained from Dr. Coulter for diet. Recommend dysphagia therapy to address timing of the swallow as well as improved pharyngeal constriction for decreased pharyngeal residue. Short term goals: Patient will demonstrated hard, fast swallow x10 with ice chips given verbal/tactile cues. Patient will clear oral cavity with no more than 2 swallows with puree trials x5 with verbal cues. - Time Total Time: 30 Total Timed Minutes: 30
[2020-02-17 10:54] LABS: ANION GAP 13 (5-19); BLOOD UREA NITROGEN 43 mg/dL (7-20); CALCIUM 9.9 mg/dL (8.4-10.2); CARBON DIOXIDE 22 mmol/L (22-30); CHLORIDE 104 mmol/L (98-107); GLUCOSE 124 mg/dL (75-110); POTASSIUM 4.3 mmol/L (3.6-5.0)
[2020-02-17 11:06] LABS: ABSOLUTE LYMPHOCYTES (AUTO) 1.1 10^3/uL (0.5-4.7); ABSOLUTE MONOCYTES (AUTO) 0.8 10^3/uL (0.1-1.4); ABSOLUTE NEUT (AUTO) 8.9 10^3/uL (1.7-8.2); BASOPHILS % (AUTO) 0.3 % (0-2); EOSINOPHILS % (AUTO) 0.2 % (0-6); HEMATOCRIT 38.4 % (36.0-47.0); HEMOGLOBIN 12.9 g/dL (12.0-15.5); LYMPHOCYTES % (AUTO) 10.5 % (13-45); MEAN CORPUSCULAR HEMOGLOBIN 31.1 pg (27.0-33.4); MEAN CORPUSCULAR HGB CONC 33.7 g/dL (32.0-36.0); MEAN CORPUSCULAR VOLUME 92 fl (80-97); MONOCYTES % (AUTO) 7.3 % (3-13); PLATELET COUNT 195 10^3/uL (150-450); RED BLOOD COUNT 4.16 10^6/uL (3.72-5.28); RED CELL DISTRIBUTION WIDTH 13.5 % (11.5-14.0); SEGMENTED NEUTROPHILS % (AUTO) 81.7 % (42-78); TOTAL CELLS COUNTED % (AUTO) 100 %; WHITE BLOOD COUNT 10.9 10^3/uL (4.0-10.5)
--- NOTE | 2020-02-17 12:29 | RADIOLOGY REPORT (SQ) ---
EXAM DESCRIPTION: CT HEAD WITHOUT IMAGES COMPLETED DATE/TIME: 02/17/2020 12:15 pm REASON FOR STUDY: stroke COMPARISON: 02/14/2020 CT, 02/15/2020 MRI TECHNIQUE: Axial images acquired through the brain without intravenous contrast. Images reviewed wi th bone, brain and subdural windows. Additional sagittal and coronal reconstructions were generated. Images stored on PACS. All CT scanners at this facility use dose modulation, iterative reconstruction, and/or weight based d osing when appropriate to reduce radiation dose to as low as reasonably achievable (ALARA). [facility]: Dose Right [facility]: CareDose [facility]: Dose Right [facility]: Teradose 4D [facility]: [employer] RADIATION DOSE: CT Rad equipment meets quality standard of care and radiation dose reduction techniq ues were employed. CTDIvol: 53.2 mGy. DLP: 991 mGy-cm.mGy. LIMITATIONS: None. FINDINGS: VENTRICLES: Prominent. CEREBRUM: Evolution of the known right MCA territory infarct with increased hypoattenuation involving the right frontal, parietal, temporal lobes and insula, compared to prior CT. No evidence of hemorr hagic conversion. No additional areas of hypoattenuation suggestive of new infarct. Additional sahara ventricular subcortical hypoattenuation, likely sequelae of microangiopathic disease. No significant midline shift or mass effect. CEREBELLUM: No masses. No hemorrhage. No alteration of density. No evidence for acute infarction. EXTRAAXIAL SPACES: Age-related involutional change. No fluid collections. No masses. ORBITS AND GLOBE: No intra- or extraconal masses. Normal contour of globe without masses. Bilateral cataract surgery. CALVARIUM: No fracture. PARANASAL SINUSES: No fluid or mucosal thickening. SOFT TISSUES: No mass or hematoma. Vascular calcifications. OTHER: No other significant finding. IMPRESSION: 1. Evolution of known large right MCA territory infarct with increased hypoattenuation compared to prior CT. No evidence of hemorrhagic conversion. No significant midline shift. Patent basal cisterns. 2. 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 EVIDENCE OF ACUTE STROKE: NO. TECHNICAL DOCUMENTATION: JOB ID: [id number] Quality ID # [id number]: Final reports with documentation of one or more dose reduction techniques (e.g., Au tomated exposure control, adjustment of the mA and/or kV according to patient size, use of iterative reconstruction technique) 2010 [employer]- All Rights Reserved Reading location - IP/workstation name: [email or web address]
--- NOTE | 2020-02-17 12:56 | PDOC PROGRESS REPORT ---
Subjective Progress Note for:: 02/17/20 Subjective:: Patient was admitting in the hospital for the acute stroke with the MCA distributions with a left-sided weakness Patient was found normal before brought to the ER on Monday for more than 24 hours patient was not treated for the TPA at the time Patient MRI and MRA consistent with acute MCA stroke with a right-sided occluded MCA Extensive discussed with the neurology at [place] regarding the right sided MCA occluded artery and suggest the patient is out of the window of TPA or any intervention at this point and no need for any ICU or transfer at this point bas ically stroke pretty much done Congested continues to aspirin statin and physical therapy and the need NG tube if unable to tolerate the p.o. for temporary and then discussed with the family because of the advanced age with multiple comorbidity Discussed with the patient's family regarding the patient's current conditions Reason For Visit: CVA (CEREBAL VASCULAR ACCIDENT) Physical Exam Vital Signs: Temp Pulse Resp BP Pulse Ox 98.1 F 91 20 117/76 100 02/17/20 11:31 02/17/20 11:31 02/17/20 11:31 02/17/20 11:31 02/17/20 11:31 Intake & Output 02/16/20 02/17/20 02/18/20 06:59 06:59 06:59 Intake Total Output Total 350 Balance -350 Weight 73.3 kg General appearance: PRESENT: no acute distress Eye exam: PRESENT: PERRLA Mouth exam: PRESENT: neck supple Respiratory exam: PRESENT: clear to auscultation kary Cardiovascular exam: PRESENT: +S1, +S2 GI/Abdominal exam: PRESENT: normal bowel sounds, soft Extremities exam: ABSENT: pedal edema Neurological exam: PRESENT: alert, awake, oriented to person Additional comments: Left-sided weakness upper and lower extremities Results Laboratory Results: 02/17/20 10:23 02/17/20 10:23 02/17/20 02/17/20 10:23 10:23 WBC 10.9 H RBC 4.16 Hgb 12.9 Hct 38.4 MCV 92 MCH 31.1 MCHC 33.7 RDW 13.5 Plt Count 195 Seg Neutrophils % 81.7 H Sodium 139.0 Potassium 4.3 Chloride 104 Carbon Dioxide 22 Anion Gap 13 BUN 43 H Creatinine 1.54 H Est GFR ( Amer) 39 L Glucose 124 H Calcium 9.9 02/14/20 02/14/20 02/15/20 12:15 12:15 00:35 Creatine Kinase 338 H 365 H CK-MB (CK-2) Troponin I < 0.012 NT-Pro-B Natriuret Pep 1540 H 02/15/20 02/15/20 02/15/20 00:35 05:50 05:50 Creatine Kinase 430 H CK-MB (CK-2) 3.27 4.75 H Troponin I 0.018 0.033 NT-Pro-B Natriuret Pep 02/15/20 02/15/20 14:14 14:14 Creatine Kinase 470 H CK-MB (CK-2) 4.95 H Troponin I 0.029 NT-Pro-B Natriuret Pep Impressions: Chest X-Ray 02/14/20 12:27 IMPRESSION: No acute cardiopulmonary disease. Hyperinflated lungs which can be seen with obstructive lung disease. Cervical Spine CT 02/14/20 12:52 IMPRESSION: Postsurgical and degenerative changes. No acute fracture. Chest CT 02/14/20 12:55 IMPRESSION: No acute findings in the chest. Abdomen/Pelvis CT 02/14/20 12:57 IMPRESSION: NO SIGNIFICANT OR ACUTE FINDING IN THE ABDOMEN OR PELVIS ON CT SCAN WITH IV CONTRAST. Brain MRI with MRA 02/15/20 00:00 IMPRESSION: 1. Allowing for motion, MRA of the carotids is normal. 2. 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 Please see separately dictated MRI brain from same date. Call Report tasked to the [facility] team at the time of interpretation. Head MRI 02/15/20 00:00 IMPRESSION: 1. Positive diffusion, recent MCA distribution infarct. Call report tasked to the [facility] team at the time of interpretation. EVIDENCE OF ACUTE STROKE: YES. RIGHT MCA Neck MRA 02/15/20 00:00 IMPRESSION: 1. Allowing for motion, MRA of the carotids is normal. 2. 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 Please see separately dictated MRI brain from same date. Call Report tasked to the [facility] team at the time of interpretation. Head CT 02/17/20 00:00 IMPRESSION: 1. Evolution of known large right MCA territory infarct with increased hypoattenuation compared to prior CT. No evidence of hemorrhagic c onversion. No significant midline shift. Patent basal cisterns. 2. 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 EVIDENCE OF ACUTE STROKE: NO. Assessment & Plan - Diagnosis (1) Acute right MCA stroke Is this a current diagnosis for this admission?: Yes Plan: Continues the aspirin supportive treatment as per discussed with the neurology at this point patient is a not a candidate for any transfer or any interventions (2) Hypertension Qualifiers: Hypertension type: essential hypertension Qualified Code(s): I10 - Essential (primary) hypertension Is this a current diagnosis for this admission?: Yes Plan: Continues to monitor (3) Chronic kidney disease Qualifiers: Chronic kidney disease stage: stage 3 (moderate) Is this a current diagnosis for this admission?: Yes Plan: Patient is currently see Dr. Mancia as outpatients current kidney function is all stable (4) Mixed hyperlipidemia Is this a current diagnosis for this admission?: Yes Plan: Continues on high-dose statin (5) History of primary bladder cancer Is this a current diagnosis for this admission?: Yes Plan: Patient recently follow the [facility] [place] [facility] (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 Is this a current diagnosis for this admission?: Yes Plan: Continues the medical management as per discussed with the neurology at [place] suggest no need for any interventions or transfer (7) T2DM (type 2 diabetes mellitus) Qualifiers: Diabetes mellitus shaft repairer insulin use: without shaft repairer use Diabetes mellitus complication status: with neurologic complications Diabetes mellitus complication detail: with polyneuropathy Qualified Code(s): E11.42 - Type 2 diabetes mellitus with diabetic polyneuropathy Is this a current diagnosis for this admission?: Yes Plan: Continues a sliding scale with [facility] protocol - Time Time Spent with patient: 25-34 minutes Level of Care: IMCU Medications reviewed and adjusted accordingly: Yes Anticipated discharge: SNF Anticipated DC Timeframe: within 72 hours - Plan Summary Plan Summary: Speech therapy evaluations done patient still at risk for aspiration pneumonia start with the speech therapy recommendations continues the medical management physical therapy OT Get the echocardiogram done by the patient's cardiology today to further evaluate and patient probably need a event monitor and outpatient DISCUSS with the patient's family including the son regarding the patient's current conditions DISCUSS the neurology department at the [place] regarding the patient's all the reports reviewed by the neurology in [place] and suggest the current medical management is here
--- NOTE | 2020-02-17 16:27 | RADIOLOGY REPORT (SQ) ---
EXAM DESCRIPTION: COOKIE SWALLOW IMAGES COMPLETED DATE/TIME: 02/17/2020 10:00 am REASON FOR STUDY: CVA COMPARISON: None. TECHNIQUE: Videofluoroscopic swallowing examination was performed in conjunction with speech patholo gy. Videofluoroscopic imaging was obtained and reviewed and these are the findings: RADIATION DOSE: Fluoro time 5.3 minutes 2 images saved to PACS. LIMITATIONS: None FINDINGS: The patient was brought into the fluoro room and placed upright on a modified barium swall ow chair. The patient was then given multiple consistencies mixed with barium to swallow under live fluoroscopic video guidance. According to the Speech Pathologist there was deep laryngeal penetratio n with thin barium and from residuals. No aspiration identified. Thicker consistencies swallowed wi thout incident. Please refer to the speech pathology report for further details. IMPRESSION: DEEP LARYNGEAL PENETRATION WITH THIN BARIUM AND FROM RESIDUALS, WITHOUT IDENTIFIED ASPIR ATION. PLEASE SEE SPEECH PATHOLOGIST REPORT FOR OTHER FINDINGS AND RECOMMENDATIONS. COMMENT: NONE Quality ID 145: Final reports for procedures using fluoroscopy that document radiation exposure patrick jan, or exposure time and number of fluorographic images (if radiation exposure indices are not avail able) TECHNICAL DOCUMENTATION: JOB ID: [id number] 2010 [employer]- All Rights Reserved Reading location - IP/workstation name: [email or web address] [id number]
--- NOTE | 2020-02-17 18:48 | XCELERA REPORT ---
[address] [address] Transthoracic Echocardiogram Report Name: NICOLETTE COHEN Age: 84 yrs Gender: Female : 1935 Patient Status: Inpatient Patient Location: [address] [place], [place] [address] Study Date: 02/17/2020 09:38 AM Height: 61 in Weight: 172 lb BSA: 1.8 m2 Procedure: A two-dimensional transthoracic echocardiogram with color flow and Doppler was performed. The study was technically difficult with many images being suboptimal in quality. Reason For Study: CVA History: CVA. Ordering Physician: ROZ AMEZQUITA Performed By: Yessy Pennington Interpretation Summary There is no obvious cardiac source of embolus noted on this transthoracic echocardiogram. Follow-up with a MARKY is suggested if cardiac source is still suspected. Recommend MARKY if clinical suspcion is high. The left ventricle is normal in size. There is normal left ventricular wall thickness. LV EF is 60% Left ventricular systolic function is normal. Doppler measurements suggest impaired left ventricular relaxation, which is associated with grade I/IV or mild diastolic dysfunction The left ventricular wall motion is normal. There is no thrombus. No ASD,VSD,or OFO seen. The right atrium is normal. The left atrial size is normal. There is no evidence of mitral valve prolapse. There is no vegetation seen on the mitral valve. There is no mitral valve stenosis. There is a trace amount of mitral regurgitation There is no aortic valvular vegetation. There is no aortic valve stenosis No aortic regurgitation is present. There is no tricuspid stenosis. There is a trace amount of tricuspid regurgitation Right ventricular systolic pressure is normal. RVVVVSP is 24 to 29 mm of Hg , with RA mean of 5 to 10. There is no pulmonic valvular stenosis. There is no pulmonic valvular regurgitation. The aortic root is not well visualized but is probably normal size. The inferior vena cava appeared normal and decreased > 50% with respiration (RAP 5-10 mmHg) There is no pericardial effusion. Recommend MARKY if clinical suspcion is high. MMode/2D Measurements & Calculations RVDd: 2.9 cm LVIDd: 3.5 cm FS: 12.9 % Ao root diam: 2.8 cm IVSd: 1.2 cm LVIDs: 3.0 cm EDV(Teich): 49.8 ml Ao root area: 6.4 cm2 LVPWd: 1.0 cm ESV(Teich): 35.6 ml LA dimension: 3.0 cm EF(Teich): 28.6 % Doppler Measurements & Calculations MV E max yousif: MV P1/2t max yousif: Ao V2 max: LV V1 max P.9 cm/sec 59.3 cm/sec 85.9 cm/sec 2.7 mmHg MV A max yousif: MV P1/2t: 72.6 msec Ao max P.0 mmHg LV V1 max: 68.6 cm/sec MVA(P1/2t): 3.0 cm2 82.6 cm/sec MV E/A: 0.84 MV dec slope: 239.2 cm/sec2 MV dec time: 0.24 sec PA V2 max: TR max yousif: MV P1/2t-pr_phl: 83.4 cm/sec 218.2 cm/sec 72.6 msec PA max P.8 mmHgTR max P.0 mmHg Left Ventricle The left ventricle is normal in size. There is normal left ventricular wall thickness. LV EF is 60%. Left ventricular systolic function is normal. Doppler measurements suggest impaired left ventricular relaxation, which is associated with grade I/IV or mild diastolic dysfunction. The left ventricular wall motion is normal. There is no thrombus. No ASD,VSD,or OFO seen. Right Ventricle The right ventricle is not well visualized secondary to technical limitations. Atria The right atrium is normal. The left atrial size is normal. Mitral Valve There is no evidence of mitral valve prolapse. There is no vegetation seen on the mitral valve. There is no mitral valve stenosis. There is a trace amount of mitral regurgitation. Aortic Valve There is no aortic valvular vegetation. There is no aortic valve stenosis. No aortic regurgitation is present. Tricuspid Valve There is no tricuspid stenosis. There is a trace amount of tricuspid regurgitation. Right ventricular systolic pressure is normal. RVVVVSP is 24 to 29 mm of Hg , with RA mean of 5 to 10. Pulmonic Valve There is no pulmonic valvular stenosis. There is no pulmonic valvular regurgitation. Great Vessels The aortic root is not well visualized but is probably normal size. The inferior vena cava appeared normal and decreased > 50% with respiration (RAP 5-10 mmHg). Effusions There is no pericardial effusion. : ROZ AMEZQUITA Lakshmi
[2020-02-17] MEDS: ATORVASTATIN CALCIUM 80 MG TABLET PO SCH (21:21)
[2020-02-17] MEDS ORDERED: GABAPENTIN 400 MG CAPSULE PO PRN (23:30)
[2020-02-17] MEDS: GABAPENTIN 400 MG CAPSULE PO PRN (23:47)
[2020-02-18 06:44] LABS: ABSOLUTE EOSINOPHILS # (AUTO) 0.1 10^3/uL (0.0-0.6); ABSOLUTE LYMPHOCYTES (AUTO) 1.1 10^3/uL (0.5-4.7); ABSOLUTE MONOCYTES (AUTO) 0.9 10^3/uL (0.1-1.4); ABSOLUTE NEUT (AUTO) 5.5 10^3/uL (1.7-8.2); BASOPHILS % (AUTO) 0.5 % (0-2); HEMATOCRIT 40.6 % (36.0-47.0); HEMOGLOBIN 13.8 g/dL (12.0-15.5); LYMPHOCYTES % (AUTO) 13.9 % (13-45); MEAN CORPUSCULAR HEMOGLOBIN 31.2 pg (27.0-33.4); MEAN CORPUSCULAR VOLUME 92 fl (80-97); MONOCYTES % (AUTO) 11.4 % (3-13); PLATELET COUNT 169 10^3/uL (150-450); RED BLOOD COUNT 4.42 10^6/uL (3.72-5.28); RED CELL DISTRIBUTION WIDTH 13.5 % (11.5-14.0); SEGMENTED NEUTROPHILS % (AUTO) 73.2 % (42-78); TOTAL CELLS COUNTED % (AUTO) 100 %; WHITE BLOOD COUNT 7.6 10^3/uL (4.0-10.5)
[2020-02-18 07:06] LABS: ANION GAP 17 (5-19); BLOOD UREA NITROGEN 55 mg/dL (7-20); CALCIUM 9.8 mg/dL (8.4-10.2); CARBON DIOXIDE 18 mmol/L (22-30); CHLORIDE 108 mmol/L (98-107); GLUCOSE 102 mg/dL (75-110)
--- NOTE | 2020-02-18 09:14 | PDOC PROGRESS REPORT ---
Subjective Progress Note for:: 02/18/20 Subjective:: Patient is currently doing fair Still have a left-sided significant weakness Patient is otherwise doing better compared to yesterday denied any chest pain no short of breath Reason For Visit: CVA (CEREBAL VASCULAR ACCIDENT) Physical Exam Vital Signs: Temp Pulse Resp BP Pulse Ox 98.4 F 103 H 18 152/94 H 93 02/18/20 02:52 02/18/20 07:57 02/18/20 07:57 02/18/20 07:57 02/18/20 07:57 Intake & Output 02/17/20 02/18/20 02/19/20 06:59 06:59 06:59 Intake Total 250 Output Total 350 325 Balance -350 -75 Weight 73.3 kg 71.9 kg General appearance: PRESENT: no acute distress, well-developed, well-nourished Head exam: PRESENT: atraumatic, normocephalic Eye exam: PRESENT: conjunctiva pink, EOMI, PERRLA. ABSENT: scleral icterus Ear exam: PRESENT: normal external ear exam Mouth exam: PRESENT: moist, tongue midline Neck exam: PRESENT: full ROM. ABSENT: carotid bruit, JVD, lymphadenopathy, thyromegaly Respiratory exam: PRESENT: clear to auscultation kary Cardiovascular exam: PRESENT: RRR. ABSENT: diastolic murmur, rubs, systolic murmur Vascular exam: PRESENT: normal capillary refill GI/Abdominal exam: PRESENT: normal bowel sounds, soft. ABSENT: distended, guarding, mass, organolmegaly, rebound, tenderness Rectal exam: PRESENT: deferred Neurological exam: PRESENT: alert, awake, oriented to person, oriented to place. ABSENT: motor sensory deficit Additional comments: Patient have a left-sided complete weakness with a neglected Psychiatric exam: PRESENT: appropriate affect, normal mood. ABSENT: homicidal ideation, suicidal ideation Skin exam: PRESENT: dry, intact, warm. ABSENT: cyanosis, rash Results Laboratory Results: 02/18/20 05:57 02/18/20 05:57 02/17/20 02/17/20 02/18/20 10:23 10:23 05:57 WBC 10.9 H 7.6 RBC 4.16 4.42 Hgb 12.9 13.8 Hct 38.4 40.6 MCV 92 92 MCH 31.1 31.2 MCHC 33.7 34.0 RDW 13.5 13.5 Plt Count 195 169 Seg Neutrophils % 81.7 H 73.2 Sodium 139.0 Potassium 4.3 Chloride 104 Carbon Dioxide 22 Anion Gap 13 BUN 43 H Creatinine 1.54 H Est GFR ( Amer) 39 L Glucose 124 H Calcium 9.9 02/18/20 05:57 WBC RBC Hgb Hct MCV MCH MCHC RDW Plt Count Seg Neutrophils % Sodium 143.0 Potassium 4.0 Chloride 108 H Carbon Dioxide 18 L Anion Gap 17 BUN 55 H Creatinine 1.60 H Est GFR ( Amer) 37 L Glucose 102 Calcium 9.8 02/14/20 02/14/20 02/15/20 12:15 12:15 00:35 Creatine Kinase 338 H 365 H CK-MB (CK-2) Troponin I < 0.012 NT-Pro-B Natriuret Pep 1540 H 02/15/20 02/15/20 02/15/20 00:35 05:50 05:50 Creatine Kinase 430 H CK-MB (CK-2) 3.27 4.75 H Troponin I 0.018 0.033 NT-Pro-B Natriuret Pep 02/15/20 02/15/20 14:14 14:14 Creatine Kinase 470 H CK-MB (CK-2) 4.95 H Troponin I 0.029 NT-Pro-B Natriuret Pep Impressions: Chest X-Ray 02/14/20 12:27 IMPRESSION: No acute cardiopulmonary disease. Hyperinflated lungs which can be seen with obstructive lung disease. Cervical Spine CT 02/14/20 12:52 IMPRESSION: Postsurgical and degenerative changes. No acute fracture. Chest CT 02/14/20 12:55 IMPRESSION: No acute findings in the chest. Abdomen/Pelvis CT 02/14/20 12:57 IMPRESSION: NO SIGNIFICANT OR ACUTE FINDING IN THE ABDOMEN OR PELVIS ON CT SCAN WITH IV CONTRAST. Brain MRI with MRA 02/15/20 00:00 IMPRESSION: 1. Allowing for motion, MRA of the carotids is normal. 2. 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 Please see separately dictated MRI brain from same date. Call Report tasked to the [facility] team at the time of interpretation. Head MRI 02/15/20 00:00 IMPRESSION: 1. Positive diffusion, recent MCA distribution infarct. Call report tasked to the [facility] team at the time of interpretation. EVIDENCE OF ACUTE STROKE: YES. RIGHT MCA Neck MRA 02/15/20 00:00 IMPRESSION: 1. Allowing for motion, MRA of the carotids is normal. 2. 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 Please see separately dictated MRI brain from same date. Call Report tasked to the [facility] team at the time of interpretation. Head CT 02/17/20 00:00 IMPRESSION: 1. Evolution of known large right MCA territory infarct with increased hypoattenuation compared to prior CT. No evidence of hemorrhagic conversion. No significant midline shift. Patent basal cisterns. 2. 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 EVIDENCE OF ACUTE STROKE: NO. Modified Barium Swallow 02/17/20 00:00 IMPRESSION: DEEP LARYNGEAL PENETRATION WITH THIN BARIUM AND FROM RESIDUALS, WITHOUT IDENTIFIED ASPIRATION. PLEASE SEE SPEECH PATHOLOGIST REPORT FOR OTHER FINDINGS AND RECOMMENDATIONS. Assessment & Plan - Diagnosis (1) Acute right MCA stroke Is this a current diagnosis for this admission?: Yes Plan: Continues to physical therapy OT continues aspirin discussed with the neurology yesterday suggest suggest the physical therapy and rehab Today's we will discuss with the patient's family as per yesterday about the patient's CODE STATUS and the long-term rehab (2) Hypertension Qualifiers: Hypertension type: essential hypertension Qualified Code(s): I10 - Essential (primary) hypertension Is this a current diagnosis for this admission?: Yes Plan: Continues to monitor (3) Chronic kidney disease Qualifiers: Chronic kidney disease stage: stage 3 (moderate) Is this a current diagnosis for this admission?: Yes Plan: Patient is currently see Dr. 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 Is this a current diagnosis for this admission?: Yes (7) T2DM (type 2 diabetes mellitus) Qualifiers: Diabetes mellitus care home insulin use: without terminal operator use Diabetes mellitus complication status: with neurologic complications Diabetes mellitus complication detail: with polyneuropathy Qualified Code(s): E11.42 - Type 2 diabetes mellitus with diabetic polyneuropathy Is this a current diagnosis for this admission?: Yes Plan: Continues a sliding scale with [facility] - Time Time Spent with patient: 15-24 minutes Level of Care: IMCU Medications reviewed and adjusted accordingly: Yes Anticipated discharge: Acute Rehab Anticipated DC Timeframe: within 72 hours - Plan Summary Plan Summary: Continues to current medications
[2020-02-18] MEDS: ASPIRIN 600 MG SUPP, RECTAL PR SCH (10:48)
[2020-02-18] MEDS: GABAPENTIN 400 MG CAPSULE PO PRN (10:48)
[2020-02-18] MEDS: ENOXAPARIN SODIUM INJ 30 MG/0.3 ML DISP.SYRIN SUBCUT SCH (10:48)
--- NOTE | 2020-02-18 13:20 | PDOC CONSULTATION ---
Consultation-Blank Consultation: Physical Medicine & Rehabilitation Progress Note Consultation request received and appreciated. Chart reviewed and case discussed with associate merchandise planner. 84-year-old right-handed female admitted to [facility] on 02/15/2020 after presenting with altered mental status and being found to have an acute infarct in the right MCA territory. Further stroke workup demonstrates occluded right middle cerebral artery beyond the origin without carotid artery stenosis on MRA of the head and neck as well as LVEF of 60% without significant valvular pathology and no ASD/PFO on echocardiogram. She is currently on aspirin rectally and atorvastatin 80 mg daily at bedtime for secondary stroke prophylaxis. She was evaluated by acute care physical therapy and occupational therapy, and she currently requires moderate to maximum assistance of 2 people for ambulation of 5 feet with a rolling walker, moderate to maximum assistance for bed mobility, minimum to moderate assistance of 2 people for transfers, maximum assistance for lower body dressing, and maximum assistance for toileting. Her endurance is noted to be poor. At baseline, the patient lives alone, but she does have some family support. Based on the patient's diagnosis, medical co-morbidities, and current functional status, she is not a candidate for Acute Inpatient Rehabilitation as she would be unable to tolerate 3 hours per day of intensive therapies in at least 2 dis ciplines with a reasonable expectation of making significant functional gains in a relatively short period of time. The patient would benefit from a prolonged, less intensive rehabilitation course that can be provided at the subacute level when she is medically ready for discharge.
--- NOTE | 2020-02-18 14:04 | Progress Note ---
Provider Note Provider Note: Discussed with the patient's son and the other family member regarding the patient's current conditions according to the patient's son and other family member patients do not want any life support and make her DNR We will discussed with the party planner to send the patient's to the assisted facility and rehab
[2020-02-18] MEDS: ATORVASTATIN CALCIUM 80 MG TABLET PO SCH (21:51)
[2020-02-19 07:21] LABS: ANION GAP 18 (5-19); BLOOD UREA NITROGEN 69 mg/dL (7-20); CALCIUM 10.1 mg/dL (8.4-10.2); CARBON DIOXIDE 16 mmol/L (22-30); CHLORIDE 111 mmol/L (98-107); GLUCOSE 121 mg/dL (75-110); POTASSIUM 4.3 mmol/L (3.6-5.0)
--- NOTE | 2020-02-19 09:27 | PDOC PROGRESS REPORT ---
Subjective Progress Note for:: 02/19/20 Subjective:: Patient is currently doing same And is alert awake oriented Patient still having weakness on the left side Patient's p.o. intake is poor X discussed with the nursing staff today's to continue to monitor for any aspirations Discussed with the patient's son yesterday who Patient and other family member patient is currently a DNR/DNI Reason For Visit: CVA (CEREBAL VASCULAR ACCIDENT) Physical Exam Vital Signs: Temp Pulse Resp BP Pulse Ox 97.4 F 106 H 18 181/99 H 96 02/19/20 07:51 02/19/20 07:51 02/19/20 07:51 02/19/20 07:51 02/19/20 07:51 Intake & Output 02/18/20 02/19/20 02/20/20 06:59 06:59 06:59 Intake Total 250 Output Total 325 370 Balance -75 -370 Weight 71.9 kg 71.2 kg General appearance: PRESENT: no acute distress Eye exam: PRESENT: PERRLA Mouth exam: PRESENT: neck supple Respiratory exam: PRESENT: clear to auscultation kary Cardiovascular exam: PRESENT: +S1, +S2 GI/Abdominal exam: PRESENT: normal bowel sounds, soft Neurological exam: PRESENT: alert, awake, oriented to person, oriented to place Additional comments: Left upper and lower extremity weakness Results Laboratory Results: 02/18/20 05:57 02/19/20 06:19 02/19/20 06:19 Sodium 144.8 Potassium 4.3 Chloride 111 H Carbon Dioxide 16 L Anion Gap 18 BUN 69 H Creatinine 2.03 H Est GFR ( Amer) 28 L Glucose 121 H Calcium 10.1 02/14/20 02/14/20 02/15/20 12:15 12:15 00:35 Creatine Kinase 338 H 365 H CK-MB (CK-2) Troponin I < 0.012 NT-Pro-B Natriuret Pep 1540 H 02/15/20 02/15/20 02/15/20 00:35 05:50 05:50 Creatine Kinase 430 H CK-MB (CK-2) 3.27 4.75 H Troponin I 0.018 0.033 NT-Pro-B Natriuret Pep 02/15/20 02/15/20 14:14 14:14 Creatine Kinase 470 H CK-MB (CK-2) 4.95 H Troponin I 0.029 NT-Pro-B Natriuret Pep Impressions: Chest X-Ray 02/14/20 12:27 IMPRESSION: No acute cardiopulmonary disease. Hyperinflated lungs which can be seen with obstructive lung disease. Cervical Spine CT 02/14/20 12:52 IMPRESSION: Postsurgical and degenerative changes. No acute fracture. Chest CT 02/14/20 12:55 IMPRESSION: No acute findings in the chest. Abdomen/Pelvis CT 02/14/20 12:57 IMPRESSION: NO SIGNIFICANT OR ACUTE FINDING IN THE ABDOMEN OR PELVIS ON CT SCAN WITH IV CONTRAST. Brain MRI with MRA 02/15/20 00:00 IMPRESSION: 1. Allowing for motion, MRA of the carotids is normal. 2. 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 Please see separately dictated MRI brain from same date. Call Report tasked to the [facility] team at the time of interpretation. Head MRI 02/15/20 00:00 IMPRESSION: 1. Positive diffusion, recent MCA distribution infarct. Call report tasked to the [facility] team at the time of interpretation. EVIDENCE OF ACUTE STROKE: YES. RIGHT MCA Neck MRA 02/15/20 00:00 IMPRESSION: 1. Allowing for motion, MRA of the carotids is normal. 2. 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 Please see separately dictated MRI brain from same date. Call Report tasked to the [facility] team at the time of interpretation. Head CT 02/17/20 00:00 IMPRESSION: 1. Evolution of known large right MCA territory infarct with increased hypoattenuation compared to prior CT. No evidence of hemorrhagic conversion. No significant midline shift. Patent basal cisterns. 2. 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 EVIDENCE OF ACUTE STROKE: NO. Modified Barium Swallow 02/17/20 00:00 IMPRESSION: DEEP LARYNGEAL PENETRATION WITH THIN BARIUM AND FROM RESIDUALS, WITHOUT IDENTIFIED ASPIRATION. PLEASE SEE SPEECH PATHOLOGIST REPORT FOR OTHER FINDINGS AND RECOMMENDATIONS. Assessment & Plan - Diagnosis (1) Acute right MCA stroke Is this a current diagnosis for this admission?: Yes Plan: Will continues the aspirin and Plavix on the dischargeAnd a high-dose statin long-term nursing facilities not candidate for the acute rehab (2) Hypertension Qualifiers: Hypertension type: essential hypertension Qualified Code(s): I10 - Essential (primary) hypertension Is this a current diagnosis for this admission?: Yes Plan: Continues to monitor (3) Chronic kidney disease Qualifiers: Chronic kidney disease stage: stage 3 (moderate) Is this a current diagnosis for this admission?: Yes Plan: Patient is currently see Dr. 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 Is this a current diagnosis for this admission?: Yes (7) T2DM (type 2 diabetes mellitus) Qualifiers: Diabetes mellitus nursing home insulin use: without assistant terminal manager use Diabetes mellitus complication status: with neurologic complications Diabetes mellitus complication detail: with polyneuropathy Qualified Code(s): E11.42 - Type 2 diabetes mellitus with diabetic polyneuropathy Is this a current diagnosis for this admission?: Yes - Time Time Spent with patient: 15-24 minutes Level of Care: IMCU Medications reviewed and adjusted accordingly: Yes Anticipated discharge: SNF Anticipated DC Timeframe: within 48 hours - Plan Summary Plan Summary: Continues to current medications hopefully discharge in a Monday if remains stable to the nursing facilities
[2020-02-19] MEDS: ASPIRIN 600 MG SUPP, RECTAL PR SCH (10:15)
[2020-02-19] MEDS: ENOXAPARIN SODIUM INJ 30 MG/0.3 ML DISP.SYRIN SUBCUT SCH (10:15)
[2020-02-19] MEDS: 1/2 NORMAL SALINE 1,000 ML IV PRN (13:36)
[2020-02-19] MEDS: ACETAMINOPHEN 325 MG TABLET PO PRN ×2 (17:26→22:19)
[2020-02-19] MEDS: ATORVASTATIN CALCIUM 80 MG TABLET PO SCH (22:19)
[2020-02-19] MEDS: GABAPENTIN 400 MG CAPSULE PO PRN (22:19)
[2020-02-20] MEDS: 1/2 NORMAL SALINE 1,000 ML IV PRN (05:43)
[2020-02-20 07:09] LABS: ABSOLUTE EOSINOPHILS # (AUTO) 0.2 10^3/uL (0.0-0.6); ABSOLUTE MONOCYTES (AUTO) 0.7 10^3/uL (0.1-1.4); ABSOLUTE NEUT (AUTO) 5.9 10^3/uL (1.7-8.2); BASOPHILS % (AUTO) 0.2 % (0-2); EOSINOPHILS % (AUTO) 2.8 % (0-6); HEMATOCRIT 39.6 % (36.0-47.0); HEMOGLOBIN 13.7 g/dL (12.0-15.5); LYMPHOCYTES % (AUTO) 13.2 % (13-45); MEAN CORPUSCULAR HEMOGLOBIN 31.7 pg (27.0-33.4); MEAN CORPUSCULAR HGB CONC 34.5 g/dL (32.0-36.0); MEAN CORPUSCULAR VOLUME 92 fl (80-97); MONOCYTES % (AUTO) 9.3 % (3-13); PLATELET COUNT 173 10^3/uL (150-450); RED BLOOD COUNT 4.32 10^6/uL (3.72-5.28); RED CELL DISTRIBUTION WIDTH 13.8 % (11.5-14.0); SEGMENTED NEUTROPHILS % (AUTO) 74.5 % (42-78); TOTAL CELLS COUNTED % (AUTO) 100 %; WHITE BLOOD COUNT 7.9 10^3/uL (4.0-10.5)
[2020-02-20 07:13] LABS: ANION GAP 15 (5-19); BLOOD UREA NITROGEN 76 mg/dL (7-20); CALCIUM 9.8 mg/dL (8.4-10.2); CARBON DIOXIDE 19 mmol/L (22-30); CHLORIDE 112 mmol/L (98-107); GLUCOSE 145 mg/dL (75-110); POTASSIUM 4.1 mmol/L (3.6-5.0)
--- NOTE | 2020-02-20 10:41 | ST Inp Modified Barium Swallow ---
Medical Diagnosis - Medical Diagnoses Medical Diagnosis Description & ICD-10 Code(s): acute Right MCA stroke, dysphagia R13.10, R13.12 - ICD-10 Tx Diagnosis Coding (1) Acute right MCA stroke ICD-10 Code(s): I63.511 - CEREB INFRC D/T UNSP OCCLS OR STENOS OF RIGHT MID CE TATIANA ART (2) CVA (cerebral vascular accident) ICD-10 Code(s): I63.9 - CEREBRAL INFARCTION, UNSPECIFIED ST Inpatient MBS - General Date: 02/20/20 Date of Onset: 02/14/20 - History -: Medical - per EMR: patient admitted 02/14/20 after being found on the floor by her son with altered mental status and dysarthria. MRI revealed acute stroke involving right middle cerebral artery. Prior medical history includes diabetes, chronic kidney disease. Patient reportedly passed nursing swallow screen in the ED, however, nursing later noted difficulty swallowing with medications. Repeat swallow screen was completed, patient failed and was made NPO. Per the patient's son, the patient has a history of swallowing difficulty involving her esophagus, had prior dialation. Speech therapy performed a MBSS on 02/17/20, which revealed pharyngeal phase dysphagia without aspiration, thin liquids and puree solids recommended. Speech therapy has been treating the patient for dysphagia. This morning, the patient was demonstrating increased s/s of aspiration with PO trials, MBSS recommended. Telephone order obtained from Dr. Coulter for repeat MBSS. Medications: Medications Reviewed Allergies: Refer to medical record - Subjective Current Nutritional Means: PO Current PO Diet: Pureed - with thin liquids Current Symptoms: Coughing, Pocketing, Drooling, Spillage Pain: Patient reports - burning sensation on back, unable to quantify - Objective Assessment: Upright, Left Lateral - Food Trials Food Trials Used: Thin liquids, Honey-thickened liquids, [place] thick liquids, Pureed The Patient: Required Assist, via cup, via spoon, via straw - pinched - Assessment Labial Function: Impaired - significant anterior loss of material seen th roughout Lingual Function: Impaired - cannot lateralize left Mandibular Function: Impaired Dentition: Partial Velo-Pharyngeal Function: Unremarkable Laryngeal Function: Volitional Cough - inconsistent, Volitional Swallow - inconsistent, Weak Cough - Pharyngeal Stage Initiation of Pharyngeal Stage: Delayed - delay of up to 4 seconds for swallow initiation Decreased Laryngeal Elevation: Yes Reduced Velo-Pharyngeal Closure: no Reduced Pressure Generation: Yes Reduced Tongue Base Retraction: Yes Pre-Swallowing Pooling in Valleculae: Significant Pre-Swallowing Pooling in Pyriforms: Mild Reduced Thyro-Hyiod Approximation: Yes Reduced Pharyngeal Peristalsis: Yes Multiple Swallows With: Ineffective Clearance Post Swallow Residuals in Valleculae: Significant Post Swallow Residuals in Pyriforms: Mild Post Swallow Residuals: throughout pharynx Pahryngeal Stage Comments: Patient demonstrated globally reduced pharyngeal swallow skills, characterized by delay in swallow initiation, decreased airway protection, decreased pharyngeal constriction. This resulted in penetration and aspiration of material throughout the study, as well as significant pharyngeal residue with all textures, residue increased as texture increased. - Impression/Summary Laryngeal Penetration: Yes - laryngeal penetration seen before and after the swallow with all trial textures, at times to level of the vocal folds, without cough response Tracheal Aspiration: yes - aspiration observed on the swallow with thin liquid trials, also seen after the swallow with residuals of mixed textures from the valleculae, very weak and delayed cough reaction seen with aspiration. Productive Cough: No Effective Clearing: no Ineffective Compensatory Strategies: throat clear & reswallow, hard swallow Patient Presents With: Oral-Pharyngeal dysph., Severe Risk of Aspiration: Severe - Recommendations NPO: yes, therapeutic trials Strict Aspitarion Precautions: Yes Dysphagia Therapy with CONFECTIONERY DROPS MACHINE OPERATOR: Yes Other Recommendations: Recommend patient be NPO at this time due to increased risk of aspiration when compared to prior study. Recommend therapeutic trials with speech therapy only to addressed oral and pharyngeal phase deficits. Continued frequent oral care is recommended to decrease oral bacteria and risk of aspiration pneumonia, as well as for patient comfort. Recommendations communicated to Dr. Coulter following study. - Time Total Time: 30 Total Timed Minutes: 30
[2020-02-20] MEDS ORDERED: DEXTROSE 40% GEL 15 GM TUBE PO PRN ×2 (10:51)
[2020-02-20] MEDS ORDERED: GLUCAGON,HUMAN RECOMB 1 MG INJ SUBCUT PRN (10:51)
[2020-02-20] MEDS ORDERED: DEXTROSE 50%-WATER 25 GM/50 ML DISP.SYRIN IV PRN ×2 (10:51)
[2020-02-20] MEDS: ENOXAPARIN SODIUM INJ 30 MG/0.3 ML DISP.SYRIN SUBCUT SCH (11:32)
[2020-02-20] MEDS: ASPIRIN 600 MG SUPP, RECTAL PR SCH (11:32)
--- NOTE | 2020-02-20 12:52 | RADIOLOGY REPORT (SQ) ---
EXAM DESCRIPTION: COOKIE SWALLOW IMAGES COMPLETED DATE/TIME: 02/20/2020 10:31 am REASON FOR STUDY: CVA, dysphagia COMPARISON: None. TECHNIQUE: Videofluoroscopic swallowing examination was performed in conjunction with speech patholo gy. Videofluoroscopic imaging was obtained and reviewed and these are the findings: RADIATION DOSE: Fluoro time 6.9 minutes 1 images saved to PACS. LIMITATIONS: None FINDINGS: The patient was brought into the fluoro room and placed upright on a modified barium swall ow chair. The patient was then given multiple consistencies mixed with barium to swallow under live fluoroscopic video guidance. According to the Speech Pathologist there was aspiration seen with thin barium, as well as from residuals with all other consistencies. Laryngeal penetration seen with nec tar thick consistency. Please refer to the speech pathology report for further details. IMPRESSION: DEMONSTRATED ASPIRATION. PLEASE SEE SPEECH PATHOLOGIST REPORT FOR OTHER FINDINGS AND REC OMMENDATIONS. COMMENT: None Quality ID [id number]: Final reports for procedures using fluoroscopy that document radiation exposure patrick jan, or exposure time and number of fluorographic images (if radiation exposure indices are not avail able) TECHNICAL DOCUMENTATION: JOB ID: [id number] 2010 [employer]- All Rights Reserved Reading location - IP/workstation name: [email or web address] [id number]
--- NOTE | 2020-02-20 13:04 | PDOC PROGRESS REPORT ---
Subjective Progress Note for:: 02/20/20 Subjective:: Patient's currently doing fair patient still have a lot of aspirations issues with the today speech therapy evaluation done and suggest to keep n.p.o. Patient at this point not currently improving overall prognosis is poor will discuss with the family again about the oral intake issues Reason For Visit: CVA (CEREBAL VASCULAR ACCIDENT) Physical Exam Vital Signs: Temp Pulse Resp BP Pulse Ox 97.6 F 88 19 150/84 H 96 02/20/20 09:17 02/20/20 07:57 02/20/20 07:57 02/20/20 07:57 02/20/20 07:57 Intake & Output 02/19/20 02/20/20 02/21/20 06:59 06:59 06:59 Intake Total 1318 Output Total 370 425 Balance -370 893 Weight 71.2 kg 74.4 kg General appearance: PRESENT: no acute distress Eye exam: PRESENT: PERRLA Mouth exam: PRESENT: neck supple Respiratory exam: PRESENT: decreased breath sounds Cardiovascular exam: PRESENT: +S1, +S2 GI/Abdominal exam: PRESENT: normal bowel sounds, soft Neurological exam: PRESENT: alert, awake Additional comments: Left-sided significant weakness Results Laboratory Results: 02/20/20 06:01 02/20/20 06:01 02/20/20 02/20/20 06:01 06:01 WBC 7.9 RBC 4.32 Hgb 13.7 Hct 39.6 MCV 92 MCH 31.7 MCHC 34.5 RDW 13.8 Plt Count 173 Seg Neutrophils % 74.5 Sodium 145.7 H Potassium 4.1 Chloride 112 H Carbon Dioxide 19 L Anion Gap 15 BUN 76 H Creatinine 1.79 H Est GFR ( Amer) 33 L Glucose 145 H Calcium 9.8 02/14/20 20:18 Blood Blood Culture - Final NO GROWTH IN 5 DAYS 02/14/20 20:29 Blood Blood Culture - Final NO GROWTH IN 5 DAYS 02/14/20 02/14/20 02/15/20 12:15 12:15 00:35 Creatine Kinase 338 H 365 H CK-MB (CK-2) Troponin I < 0.012 NT-Pro-B Natriuret Pep 1540 H 02/15/20 02/15/20 02/15/20 00:35 05:50 05:50 Creatine Kinase 430 H CK-MB (CK-2) 3.27 4.75 H Troponin I 0.018 0.033 NT-Pro-B Natriuret Pep 02/15/20 02/15/20 14:14 14:14 Creatine Kinase 470 H CK-MB (CK-2) 4.95 H Troponin I 0.029 NT-Pro-B Natriuret Pep Impressions: Chest X-Ray 02/14/20 12:27 IMPRESSION: No acute cardiopulmonary disease. Hyperinflated lungs which can be seen with obstructive lung disease. Cervical Spine CT 02/14/20 12:52 IMPRESSION: Postsurgical and degenerative changes. No acute fracture. Chest CT 02/14/20 12:55 IMPRESSION: No acute findings in the chest. Abdomen/Pelvis CT 02/14/20 12:57 IMPRESSION: NO SIGNIFICANT OR ACUTE FINDING IN THE ABDOMEN OR PELVIS ON CT SCAN WITH IV CONTRAST. Brain MRI with MRA 02/15/20 00:00 IMPRESSION: 1. Allowing for motion, MRA of the carotids is normal. 2. 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 Please see separately dictated MRI brain from same date. Call Report tasked to the [facility] team at the time of interpretation. Head MRI 02/15/20 00:00 IMPRESSION: 1. Positive diffusion, recent MCA distribution infarct. Call report tasked to the [facility] team at the time of interpretation. EVIDENCE OF ACUTE STROKE: YES. RIGHT MCA Neck MRA 02/15/20 00:00 IMPRESSION: 1. Allowing for motion, MRA of the carotids is normal. 2. 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 Please see separately dictated MRI brain from same date. Call Report tasked to the [facility] team at the time of interpretation. Head CT 02/17/20 00:00 IMPRESSION: 1. Evolution of known large right MCA territory infarct with increased hypoattenuation compared to prior CT. No evidence of hemorrhagic conversion. No significant midline shift. Patent basal cisterns. 2. 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 EVIDENCE OF ACUTE STROKE: NO. Modified Barium Swallow 02/20/20 00:00 IMPRESSION: ASPIRATION WITH THIN BARIUM AND FROM RESIDUALS. PLEASE SEE SPEECH PATHOLOGIST REPORT FOR OTHER FINDINGS AND RECOMMENDATIONS. Assessment & Plan - Diagnosis (1) Acute right MCA stroke Is this a current diagnosis for this admission?: Yes (2) Hypertension Qualifiers: Hypertension type: essential hypertension Qualified Code(s): I10 - Essential (primary) hypertension Is this a current diagnosis for this admission?: Yes (3) Chronic kidney disease Qualifiers: Chronic kidney disease stage: stage 3 (moderate) Is this a current diagnosis for this admission?: Yes (4) Mixed hyperlipidemia Is this a current diagnosis for this admission?: Yes (5) History of primary bladder cancer Is this a current diagnosis for this admission?: Yes (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 Is this a current diagnosis for this admission?: Yes (7) T2DM (type 2 diabetes mellitus) Qualifiers: Diabetes mellitus detention insulin use: without termite helper use Diabetes mellitus complication status: with neurologic complications Diabetes mellitus complication detail: with polyneuropathy Qualified Code(s): E11.42 - Type 2 diabetes mellitus with diabetic polyneuropathy Is this a current diagnosis for this admission?: Yes - Time Time Spent with patient: 15-24 minutes Level of Care: IMCU Medications reviewed and adjusted accordingly: Yes Anticipated discharge: SNF Anticipated DC Timeframe: Other - Plan Summary Plan Summary: Continues to current med Biggest Challenges the Patient's with the Oral Intake We Will See What the Other Alternative but Most Likely Putting the PEG Tube Which Is Will Discuss the Patient's Family but I Do Not Think the Patient Is a Very Good Candidate with a so Much Comorbidity
[2020-02-20] MEDS: ATORVASTATIN CALCIUM 80 MG TABLET PO SCH (21:04)
[2020-02-21] MEDS: 1/2 NORMAL SALINE 1,000 ML IV PRN ×2 (05:23→23:37)
[2020-02-21] MEDS: NEBIVOLOL HCL 5 MG TABLET PO SCH (09:26)
[2020-02-21] MEDS: ATORVASTATIN CALCIUM 20 MG TABLET PO SCH (09:26)
[2020-02-21] MEDS: FLUTICASONE/VILANTEROL 200-25 MCG/DOSE IH SCH (09:26)
[2020-02-21] MEDS: LEVOTHYROXINE SODIUM 0.025 MG TABLET PO SCH (09:27)
--- NOTE | 2020-02-21 09:47 | PDOC PROGRESS REPORT ---
Subjective Progress Note for:: 02/21/20 Subjective:: Patient is currently pretty much doing same Patient's according to the nursing staff with the physical therapy did better yesterday Will further evaluate the speech therapy Reduce the gabapentin dose Restart the Blood pressure medications Reason For Visit: CVA (CEREBAL VASCULAR ACCIDENT) Physical Exam Vital Signs: Temp Pulse Resp BP Pulse Ox 97.7 F 100 18 199/96 H 95 02/21/20 08:23 02/21/20 08:29 02/21/20 08:29 02/21/20 08:29 02/21/20 08:29 Intake & Output 02/20/20 02/21/20 02/22/20 06:59 06:59 06:59 Intake Total 1318 1000 Output Total 425 600 Balance 893 400 Weight 74.4 kg 72.5 kg General appearance: PRESENT: no acute distress Eye exam: PRESENT: PERRLA Mouth exam: PRESENT: neck supple Respiratory exam: PRESENT: clear to auscultation kary Neurological exam: PRESENT: alert, awake Additional comments: Left-sided weakness Skin exam: PRESENT: dry Results Laboratory Results: 02/20/20 06:01 02/20/20 06:01 02/14/20 02/14/20 02/15/20 12:15 12:15 00:35 Creatine Kinase 338 H 365 H CK-MB (CK-2) Troponin I < 0.012 NT-Pro-B Natriuret Pep 1540 H 02/15/20 02/15/20 02/15/20 00:35 05:50 05:50 Creatine Kinase 430 H CK-MB (CK-2) 3.27 4.75 H Troponin I 0.018 0.033 NT-Pro-B Natriuret Pep 02/15/20 02/15/20 14:14 14:14 Creatine Kinase 470 H CK-MB (CK-2) 4.95 H Troponin I 0.029 NT-Pro-B Natriuret Pep Impressions: Chest X-Ray 02/14/20 12:27 IMPRESSION: No acute cardiopulmonary disease. Hyperinflated lungs which can be seen with obstructive lung disease. Cervical Spine CT 02/14/20 12:52 IMPRESSION: Postsurgical and degenerative changes. No acute fracture. Chest CT 02/14/20 12:55 IMPRESSION: No acute findings in the chest. Abdomen/Pelvis CT 02/14/20 12:57 IMPRESSION: NO SIGNIFICANT OR ACUTE FINDING IN THE ABDOMEN OR PELVIS ON CT SCAN WITH IV CONTRAST. Brain MRI with MRA 02/15/20 00:00 IMPRESSION: 1. Allowing for motion, MRA of the carotids is normal. 2. 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 Please see separately dictated MRI brain from same date. Call Report tasked to the [facility] team at the time of interpretation. Head MRI 02/15/20 00:00 IMPRESSION: 1. Positive diffusion, recent MCA distribution infarct. Call report tasked to the [facility] team at the time of interpretation. EVIDENCE OF ACUTE STROKE: YES. RIGHT MCA Neck MRA 02/15/20 00:00 IMPRESSION: 1. Allowing for motion, MRA of the carotids is normal. 2. 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 Please see separately dictated MRI brain from same date. Call Report tasked to the [facility] team at the time of interpretation. Head CT 02/17/20 00:00 IMPRESSION: 1. Evolution of known large right MCA territory infarct with increased hypoattenuation compared to prior CT. No evidence of hemorrhagic conversion. No significant midline shift. Patent basal cisterns. 2. 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 EVIDENCE OF ACUTE STROKE: NO. Modified Barium Swallow 02/20/20 00:00 IMPRESSION: DEMONSTRATED ASPIRATION. PLEASE SEE SPEECH PATHOLOGIST REPORT FOR OTHER FINDINGS AND RECOMMENDATIONS. Assessment & Plan - Diagnosis (1) Acute right MCA stroke Is this a current diagnosis for this admission?: Yes (2) Hypertension Qualifiers: Hypertension type: essential hypertension Qualified Code(s): I10 - Essential (primary) hypertension Is this a current diagnosis for this admission?: Yes (3) Chronic kidney disease Qualifiers: Chronic kidney disease stage: stage 3 (moderate) Is this a current diagnosis for this admission?: Yes (4) Mixed hyperlipidemia Is this a current diagnosis for this admission?: Yes (5) History of primary bladder cancer Is this a current diagnosis for this admission?: Yes (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 Is this a current diagnosis for this admission?: Yes (7) T2DM (type 2 diabetes mellitus) Qualifiers: Diabetes mellitus long winder tender insulin use: without long winder tender use Diabetes mellitus complication status: with neurologic complications Diabetes mellitus complication detail: with polyneuropathy Qualified Code(s): E11.42 - Type 2 diabetes mellitus with diabetic polyneuropathy Is this a current diagnosis for this admission?: Yes - Time Time Spent with patient: 15-24 minutes Level of Care: IMCU Medications reviewed and adjusted accordingly: Yes Anticipated DC Timeframe: Other - Plan Summary Plan Summary: Overall prognosis is poor Try more physical therapy speech therapy Continues the current other medications
[2020-02-21] MEDS: ASPIRIN 600 MG SUPP, RECTAL PR SCH (09:56)
[2020-02-21] MEDS: ENOXAPARIN SODIUM INJ 30 MG/0.3 ML DISP.SYRIN SUBCUT SCH (09:56)
[2020-02-21] MEDS ORDERED: NEBIVOLOL HCL 10 MG TABLET PO SCH (10:00)
[2020-02-21] MEDS: ATORVASTATIN CALCIUM 80 MG TABLET PO SCH (21:02)
[2020-02-22] MEDS: NEBIVOLOL HCL 5 MG TABLET PO SCH (10:12)
[2020-02-22] MEDS: LEVOTHYROXINE SODIUM 0.025 MG TABLET PO SCH (10:13)
[2020-02-22] MEDS: ATORVASTATIN CALCIUM 20 MG TABLET PO SCH (10:13)
[2020-02-22] MEDS: ENOXAPARIN SODIUM INJ 30 MG/0.3 ML DISP.SYRIN SUBCUT SCH (10:15)
[2020-02-22] MEDS: ASPIRIN 600 MG SUPP, RECTAL PR SCH (10:16)
[2020-02-22] MEDS: FLUTICASONE/VILANTEROL 200-25 MCG/DOSE IH SCH (10:16)
--- NOTE | 2020-02-22 10:23 | PDOC PROGRESS REPORT ---
Subjective Progress Note for:: 02/22/20 Subjective:: Patient is currently pretty much doing same Patient's according to the nursing staff with the physical therapy did better yesterday Will further evaluate the speech therapy Reduce the gabapentin dose Restart the Blood pressure medications Reason For Visit: CVA (CEREBAL VASCULAR ACCIDENT) Physical Exam Vital Signs: Temp Pulse Resp BP Pulse Ox 97.9 F 86 18 151/114 H 98 02/22/20 08:04 02/22/20 07:38 02/22/20 07:38 02/22/20 07:38 02/22/20 07:38 Intake & Output 02/21/20 02/22/20 02/23/20 06:59 06:59 06:59 Intake Total 1000 1000 Output Total 600 650 Balance 400 350 Weight 72.5 kg 72.5 kg General appearance: PRESENT: no acute distress Eye exam: PRESENT: PERRLA Mouth exam: PRESENT: neck supple Respiratory exam: PRESENT: clear to auscultation kary Cardiovascular exam: PRESENT: +S1, +S2 GI/Abdominal exam: PRESENT: normal bowel sounds, soft Neurological exam: PRESENT: alert, awake Skin exam: PRESENT: dry Results Laboratory Results: 02/20/20 06:01 02/20/20 06:01 02/14/20 02/14/20 02/15/20 12:15 12:15 00:35 Creatine Kinase 338 H 365 H CK-MB (CK-2) Troponin I < 0.012 NT-Pro-B Natriuret Pep 1540 H 02/15/20 02/15/20 02/15/20 00:35 05:50 05:50 Creatine Kinase 430 H CK-MB (CK-2) 3.27 4.75 H Troponin I 0.018 0.033 NT-Pro-B Natriuret Pep 02/15/20 02/15/20 14:14 14:14 Creatine Kinase 470 H CK-MB (CK-2) 4.95 H Troponin I 0.029 NT-Pro-B Natriuret Pep Impressions: Chest X-Ray 02/14/20 12:27 IMPRESSION: No acute cardiopulmonary disease. Hyperinflated lungs which can be seen with obstructive lung disease. Cervical Spine CT 02/14/20 12:52 IMPRESSION: Postsurgical and degenerative changes. No acute fracture. Chest CT 02/14/20 12:55 IMPRESSION: No acute findings in the chest. Abdomen/Pelvis CT 02/14/20 12:57 IMPRESSION: NO SIGNIFICANT OR ACUTE FINDING IN THE ABDOMEN OR PELVIS ON CT SCAN WITH IV CONTRAST. Brain MRI with MRA 02/15/20 00:00 IMPRESSION: 1. Allowing for motion, MRA of the carotids is normal. 2. 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 Please see separately dictated MRI brain from same date. Call Report tasked to the [facility] team at the time of interpretation. Head MRI 02/15/20 00:00 IMPRESSION: 1. Positive diffusion, recent MCA distribution infarct. Call report tasked to the [facility] team at the time of interpretation. EVIDENCE OF ACUTE STROKE: YES. RIGHT MCA Neck MRA 02/15/20 00:00 IMPRESSION: 1. Allowing for motion, MRA of the carotids is normal. 2. 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 Please see separately dictated MRI brain from same date. Call Report tasked to the [facility] team at the time of interpretation. Head CT 02/17/20 00:00 IMPRESSION: 1. Evolution of known large right MCA territory infarct with increased hypoattenuation compared to prior CT. No evidence of hemorrhagic conversion. No significant midline shift. Patent basal cisterns. 2. 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 EVIDENCE OF ACUTE STROKE: NO. Modified Barium Swallow 02/20/20 00:00 IMPRESSION: DEMONSTRATED ASPIRATION. PLEASE SEE SPEECH PATHOLOGIST REPORT FOR OTHER FINDINGS AND RECOMMENDATIONS. Assessment & Plan - Diagnosis (1) Acute right MCA stroke Is this a current diagnosis for this admission?: Yes (2) Hypertension Qualifiers: Hypertension type: essential hypertension Qualified Code(s): I10 - Essential (primary) hypertension Is this a current diagnosis for this admission?: Yes (3) Chronic kidney disease Qualifiers: Chronic kidney disease stage: stage 3 (moderate) Is this a current diagnosis for this admission?: Yes (4) Mixed hyperlipidemia Is this a current diagnosis for this admission?: Yes (5) History of primary bladder cancer Is this a current diagnosis for this admission?: Yes (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 Is this a current diagnosis for this admission?: Yes (7) T2DM (type 2 diabetes mellitus) Qualifiers: Diabetes mellitus group home insulin use: without rat exterminator use Diabetes mellitus complication status: with neurologic complications Diabetes mellitus complication detail: with polyneuropathy Qualified Code(s): E11.42 - Type 2 diabetes mellitus with diabetic polyneuropathy Is this a current diagnosis for this admission?: Yes - Time Time Spent with patient: 15-24 minutes Level of Care: IMCU Medications reviewed and adjusted accordingly: Yes Anticipated discharge: Other Anticipated DC Timeframe: Other - Plan Summary Plan Summary: Continues to current medications
[2020-02-22] MEDS: 1/2 NORMAL SALINE 1,000 ML IV PRN (17:03)
[2020-02-22] MEDS: ATORVASTATIN CALCIUM 80 MG TABLET PO SCH (21:14)
--- NOTE | 2020-02-23 10:00 | PDOC PROGRESS REPORT ---
Subjective Progress Note for:: 02/23/20 Subjective:: Patient is currently doing same Still p.o. intake is challenge with the so much aspirations risk Discussed with the son regarding the patient's current condition with no improvement discussed about the PEG tube placements and discussed with the other options Will probably at this point son understand very well pretty much DNR/DNI do not want to go very extensive or invasive procedures [place] start the p.o. feeding with aspirations precautions Probably discharge tomorrow to the nursing facilities With overall prognosis is very poor Reason For Visit: CVA (CEREBAL VASCULAR ACCIDENT) Physical Exam Vital Signs: Temp Pulse Resp BP Pulse Ox 97.2 F 87 18 155/104 H 99 02/23/20 07:39 02/23/20 07:39 02/23/20 07:39 02/23/20 07:39 02/23/20 07:39 Intake & Output 02/22/20 02/23/20 02/24/20 06:59 06:59 06:59 Intake Total 1000 1000 Output Total 650 750 Balance 350 250 Weight 72.5 kg 71.4 kg General appearance: PRESENT: no acute distress Eye exam: PRESENT: PERRLA Mouth exam: PRESENT: neck supple Respiratory exam: PRESENT: clear to auscultation kary Cardiovascular exam: PRESENT: +S1, +S2 GI/Abdominal exam: PRESENT: normal bowel sounds, soft Neurological exam: PRESENT: alert, awake Results Laboratory Results: 02/20/20 06:01 02/20/20 06:01 02/14/20 02/14/20 02/15/20 12:15 12:15 00:35 Creatine Kinase 338 H 365 H CK-MB (CK-2) Troponin I < 0.012 NT-Pro-B Natriuret Pep 1540 H 02/15/20 02/15/20 02/15/20 00:35 05:50 05:50 Creatine Kinase 430 H CK-MB (CK-2) 3.27 4.75 H Troponin I 0.018 0.033 NT-Pro-B Natriuret Pep 02/15/20 02/15/20 14:14 14:14 Creatine Kinase 470 H CK-MB (CK-2) 4.95 H Troponin I 0.029 NT-Pro-B Natriuret Pep Impressions: Chest X-Ray 02/14/20 12:27 IMPRESSION: No acute cardiopulmonary disease. Hyperinflated lungs which can be seen with obstructive lung disease. Cervical Spine CT 02/14/20 12:52 IMPRESSION: Postsurgical and degenerative changes. No acute fracture. Chest CT 02/14/20 12:55 IMPRESSION: No acute findings in the chest. Abdomen/Pelvis CT 02/14/20 12:57 IMPRESSION: NO SIGNIFICANT OR ACUTE FINDING IN THE ABDOMEN OR PELVIS ON CT SCAN WITH IV CONTRAST. Brain MRI with MRA 02/15/20 00:00 IMPRESSION: 1. Allowing for motion, MRA of the carotids is normal. 2. 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 Please see separately dictated MRI brain from same date. Call Report tasked to the [facility] team at the time of interpretation. Head MRI 02/15/20 00:00 IMPRESSION: 1. Positive diffusion, recent MCA distribution infarct. Call report tasked to the [facility] team at the time of interp retation. EVIDENCE OF ACUTE STROKE: YES. RIGHT MCA Neck MRA 02/15/20 00:00 IMPRESSION: 1. Allowing for motion, MRA of the carotids is normal. 2. 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 Please see separately dictated MRI brain from same date. Call Report tasked to the [facility] team at the time of interpretation. Head CT 02/17/20 00:00 IMPRESSION: 1. Evolution of known large right MCA territory infarct with increased hypoattenuation compared to prior CT. No evidence of hemorrhagic conversion. No significant midline shift. Patent basal cisterns. 2. 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 EVIDENCE OF ACUTE STROKE: NO. Modified Barium Swallow 02/20/20 00:00 IMPRESSION: DEMONSTRATED ASPIRATION. PLEASE SEE SPEECH PATHOLOGIST REPORT FOR OTHER FINDINGS AND RECOMMENDATIONS. Assessment & Plan - Diagnosis (1) Acute right MCA stroke Is this a current diagnosis for this admission?: Yes (2) Hypertension Qualifiers: Hypertension type: essential hypertension Qualified Code(s): I10 - Essential (primary) hypertension Is this a current diagnosis for this admission?: Yes (3) Chronic kidney disease Qualifiers: Chronic kidney disease stage: stage 3 (moderate) Is this a current diagnosis for this admission?: Yes (4) Mixed hyperlipidemia Is this a current diagnosis for this admission?: Yes (5) History of primary bladder cancer Is this a current diagnosis for this admission?: Yes (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 Is this a current diagnosis for this admission?: Yes (7) T2DM (type 2 diabetes mellitus) Qualifiers: Diabetes mellitus long filler cigar roller machine insulin use: without long-term use Diabetes mellitus complication status: with neurologic complications Diabetes mellitus complication detail: with polyneuropathy Qualified Code(s): E11.42 - Type 2 diabetes mellitus with diabetic polyneuropathy Is this a current diagnosis for this admission?: Yes - Time Time Spent with patient: 15-24 minutes Level of Care: IMCU Medications reviewed and adjusted accordingly: Yes Anticipated discharge: SNF Anticipated DC Timeframe: within 24 hours - Plan Summary Plan Summary: With overall prognosis is very poor Discussed with the patient's sons will probably discharge to the nursing facilities tomorrow Reevaluate the swallow thinks today
[2020-02-23] MEDS: FLUTICASONE/VILANTEROL 200-25 MCG/DOSE IH SCH (11:00)
[2020-02-23] MEDS: ASPIRIN 600 MG SUPP, RECTAL PR SCH (11:00)
[2020-02-23] MEDS: GABAPENTIN 100 MG CAPSULE PO PRN (11:03)
[2020-02-23] MEDS: LEVOTHYROXINE SODIUM 0.025 MG TABLET PO SCH (11:04)
[2020-02-23] MEDS: NEBIVOLOL HCL 5 MG TABLET PO SCH (11:05)
[2020-02-23] MEDS: ENOXAPARIN SODIUM INJ 30 MG/0.3 ML DISP.SYRIN SUBCUT SCH (11:05)
[2020-02-23] MEDS: ATORVASTATIN CALCIUM 20 MG TABLET PO SCH (11:05)
[2020-02-23] MEDS: 1/2 NORMAL SALINE 1,000 ML IV PRN (13:30)
[2020-02-23] MEDS: ATORVASTATIN CALCIUM 80 MG TABLET PO SCH (21:37)
[2020-02-24] MEDS: 1/2 NORMAL SALINE 1,000 ML IV PRN ×2 (03:49→20:31)
[2020-02-24] MEDS: FLUTICASONE/VILANTEROL 200-25 MCG/DOSE IH SCH (10:00)
[2020-02-24] MEDS: NEBIVOLOL HCL 5 MG TABLET PO SCH (11:29)
[2020-02-24] MEDS: LEVOTHYROXINE SODIUM 0.025 MG TABLET PO SCH (11:29)
[2020-02-24] MEDS: GABAPENTIN 100 MG CAPSULE PO PRN (11:29)
[2020-02-24] MEDS: ENOXAPARIN SODIUM INJ 30 MG/0.3 ML DISP.SYRIN SUBCUT SCH (11:30)
[2020-02-24] MEDS: ASPIRIN 600 MG SUPP, RECTAL PR SCH (11:30)
[2020-02-24] MEDS: ATORVASTATIN CALCIUM 20 MG TABLET PO SCH (11:30)
--- NOTE | 2020-02-24 12:12 | PDOC PROGRESS REPORT ---
Subjective Date:: 02/24/20 Subjective:: Patient is currently doing fair Patient still have a no progress Patient start eating some p.o. food And have a some pressure blister in the back Reason For Visit: CVA (CEREBAL VASCULAR ACCIDENT) Physical Exam Vital Signs: Temp Pulse Resp BP Pulse Ox 98.0 F 91 20 149/89 H 100 02/24/20 11:34 02/24/20 11:34 02/24/20 11:34 02/24/20 11:34 02/24/20 11:34 Intake & Output 02/23/20 02/24/20 02/25/20 06:59 06:59 06:59 Intake Total 1000 1959 Output Total 750 650 Balance 250 1309 Weight 71.4 kg 72.5 kg General appearance: PRESENT: no acute distress Eye exam: PRESENT: PERRLA Mouth exam: PRESENT: neck supple Respiratory exam: PRESENT: clear to auscultation kary Cardiovascular exam: PRESENT: +S1, +S2 GI/Abdominal exam: PRESENT: normal bowel sounds, soft Neurological exam: PRESENT: alert, awake Additional comments: Pressure blister on the back Results Laboratory Results: 02/20/20 06:01 02/20/20 06:01 02/14/20 02/14/20 02/15/20 12:15 12:15 00:35 Creatine Kinase 338 H 365 H CK-MB (CK-2) Troponin I < 0.012 NT-Pro-B Natriuret Pep 1540 H 02/15/20 02/15/20 02/15/20 00:35 05:50 05:50 Creatine Kinase 430 H CK-MB (CK-2) 3.27 4.75 H Troponin I 0.018 0.033 NT-Pro-B Natriuret Pep 02/15/20 02/15/20 14:14 14:14 Creatine Kinase 470 H CK-MB (CK-2) 4.95 H Troponin I 0.029 NT-Pro-B Natriuret Pep Impressions: Chest X-Ray 02/14/20 12:27 IMPRESSION: No acute cardiopulmonary disease. Hyperinflated lungs which can be seen with obstructive lung disease. Cervical Spine CT 02/14/20 12:52 IMPRESSION: Postsurgical and degenerative changes. No acute fracture. Chest CT 02/14/20 12:55 IMPRESSION: No acute findings in the chest. Abdomen/Pelvis CT 02/14/20 12:57 IMPRESSION: NO SIGNIFICANT OR ACUTE FINDING IN THE ABDOMEN OR PELVIS ON CT SCAN WITH IV CONTRAST. Brain MRI with MRA 02/15/20 00:00 IMPRESSION: 1. Allowing for motion, MRA of the carotids is normal. 2. 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 Please see separately dictated MRI brain from same date. Call Report tasked to the [facility] team at the time of interpretation. Head MRI 02/15/20 00:00 IMPRESSION: 1. Positive diffusion, recent MCA distribution infarct. Call report tasked to the [facility] team at the time of interpretation. EVIDENCE OF ACUTE STROKE: YES. RIGHT MCA Neck MRA 02/15/20 00:00 IMPRESSION: 1. Allowing for motion, MRA of the carotids is normal. 2. 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 Please see separately dictated MRI brain from same date. Call Report tasked to the [facility] team at the time of interpretation. Head CT 02/17/20 00:00 IMPRESSION: 1. Evolution of known large right MCA territory infarct with increased hypoattenuation compared to prior CT. No evidence of hemorrhagic conversion. No significant midline shift. Patent basal cisterns. 2. 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 EVIDENCE OF ACUTE STROKE: NO. Modified Barium Swallow 02/20/20 00:00 IMPRESSION: DEMONSTRATED ASPIRATION. PLEASE SEE SPEECH PATHOLOGIST REPORT FOR OTHER FINDINGS AND RECOMMENDATIONS. Assessment & Plan - Diagnosis (1) Acute right MCA stroke Is this a current diagnosis for this admission?: Yes (2) Hypertension Qualifiers: Hypertension type: essential hypertension Qualified Code(s): I10 - Essential (primary) hypertension Is this a current diagnosis for this admission?: Yes (3) Chronic kidney disease Qualifiers: Chronic kidney disease stage: stage 3 (moderate) Is this a current diagnosis for this admission?: Yes (4) Mixed hyperlipidemia Is this a current diagnosis for this admission?: Yes (5) History of primary bladder cancer Is this a current diagnosis for this admission?: Yes (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 Is this a current diagnosis for this admission?: Yes (7) T2DM (type 2 diabetes mellitus) Qualifiers: Diabetes mellitus longterm insulin use: without longterm use Diabetes mellitus complication status: with neurologic complications Diabetes mellitus complication detail: with polyneuropathy Qualified Code(s): E11.42 - Type 2 diabetes mellitus with diabetic polyneuropathy Is this a current diagnosis for this admission?: Yes - Time Time Spent with patient: 15-24 minutes Level of Care: IMCU Medications reviewed and adjusted accordingly: Yes Anticipated discharge: SNF Anticipated DC Timeframe: when bed available - Plan Summary Plan Summary: Continues the current medications patients at this point discharged to the rehab nothing much can be offer at this point
[2020-02-24] MEDS: ACETAMINOPHEN 325 MG TABLET PO PRN (19:43)
[2020-02-24] MEDS: ATORVASTATIN CALCIUM 80 MG TABLET PO SCH (21:18)
--- NOTE | 2020-02-25 08:48 | PDOC PROGRESS REPORT ---
Subjective Date:: 02/25/20 Subjective:: Patient is currently doing same We will waiting for the transfer the patient to the rehab facility Discussed with the speech therapy to reevaluate the patient's for the p.o. intake Reason For Visit: CVA (CEREBAL VASCULAR ACCIDENT) Physical Exam Vital Signs: Temp Pulse Resp BP Pulse Ox 98.2 F 92 21 H 185/96 H 93 02/25/20 07:57 02/25/20 07:57 02/25/20 07:57 02/25/20 07:57 02/25/20 07:57 Intake & Output 02/24/20 02/25/20 02/26/20 06:59 06:59 06:59 Intake Total 1959 1000 Output Total 650 1250 Balance 1309 -250 Weight 72.5 kg 72.4 kg General appearance: PRESENT: no acute distress Eye exam: PRESENT: PERRLA Mouth exam: PRESENT: neck supple Respiratory exam: PRESENT: clear to auscultation kary Cardiovascular exam: PRESENT: +S1, +S2 GI/Abdominal exam: PRESENT: normal bowel sounds, soft Neurological exam: PRESENT: alert, awake Results Laboratory Results: 02/20/20 06:01 02/20/20 06:01 02/14/20 02/14/20 02/15/20 12:15 12:15 00:35 Creatine Kinase 338 H 365 H CK-MB (CK-2) Troponin I < 0.012 NT-Pro-B Natriuret Pep 1540 H 02/15/20 02/15/20 02/15/20 00:35 05:50 05:50 Creatine Kinase 430 H CK-MB (CK-2) 3.27 4.75 H Troponin I 0.018 0.033 NT-Pro-B Natriuret Pep 02/15/20 02/15/20 14:14 14:14 Creatine Kinase 470 H CK-MB (CK-2) 4.95 H Troponin I 0.029 NT-Pro-B Natriuret Pep Impressions: Chest X-Ray 02/14/20 12:27 IMPRESSION: No acute cardiopulmonary disease. Hyperinflated lungs which can be seen with obstructive lung disease. Cervical Spine CT 02/14/20 12:52 IMPRESSION: Postsurgical and degenerative changes. No acute fracture. Chest CT 02/14/20 12:55 IMPRESSION: No acute findings in the chest. Abdomen/Pelvis CT 02/14/20 12:57 IMPRESSION: NO SIGNIFICANT OR ACUTE FINDING IN THE ABDOMEN OR PELVIS ON CT SCAN WITH IV CONTRAST. Brain MRI with MRA 02/15/20 00:00 IMPRESSION: 1. Allowing for motion, MRA of the carotids is normal. 2. 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 Please see separately dictated MRI brain from same date. Call Report tasked to the [facility] team at the time of interpretation. Head MRI 02/15/20 00:00 IMPRESSION: 1. Positive diffusion, recent MCA distribution infarct. Call report tasked to the [facility] team at the time of interpretation. EVIDENCE OF ACUTE STROKE: YES. RIGHT MCA Neck MRA 02/15/20 00:00 IMPRESSION: 1. Allowing for motion, MRA of the carotids is normal. 2. 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 Please see separately dictated MRI brain from same date. Call Report tasked to the [facility] team at the time of interpreta tion. Head CT 02/17/20 00:00 IMPRESSION: 1. Evolution of known large right MCA territory infarct with increased hypoattenuation compared to prior CT. No evidence of hemorrhagic conversion. No significant midline shift. Patent basal cisterns. 2. 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 EVIDENCE OF ACUTE STROKE: NO. Modified Barium Swallow 02/20/20 00:00 IMPRESSION: DEMONSTRATED ASPIRATION. PLEASE SEE SPEECH PATHOLOGIST REPORT FOR OTHER FINDINGS AND RECOMMENDATIONS. Assessment & Plan - Diagnosis (1) Acute right MCA stroke Is this a current diagnosis for this admission?: Yes (2) Hypertension Qualifiers: Hypertension type: essential hypertension Qualified Code(s): I10 - Essential (primary) hypertension Is this a current diagnosis for this admission?: Yes (3) Chronic kidney disease Qualifiers: Chronic kidney disease stage: stage 3 (moderate) Is this a current diagnosis for this admission?: Yes (4) Mixed hyperlipidemia Is this a current diagnosis for this admission?: Yes (5) History of primary bladder cancer Is this a current diagnosis for this admission?: Yes (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 Is this a current diagnosis for this admission?: Yes (7) T2DM (type 2 diabetes mellitus) 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
--- NOTE | 2020-02-25 09:27 | PDOC TRANSFER SUMMARY ---
Impression - Admit/DC Date/PCP Admission Date/Primary Care Provider: 02/14/20 17:20 ESTUARDO OCASIO MD Discharge Date: 02/25/20 - Discharge Diagnosis (1) Acute right MCA stroke Is this a current diagnosis for this admission?: Yes (2) Hypertension Is this a current diagnosis for this admission?: Yes (3) Chronic kidney disease Is this a current diagnosis for this admission?: Yes (4) Mixed hyperlipidemia Is this a current diagnosis for this admission?: Yes (5) History of primary bladder cancer Is this a current diagnosis for this admission?: Yes (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 Is this a current diagnosis for this admission?: Yes (7) T2DM (type 2 diabetes mellitus) Is this a current diagnosis for this admission?: Yes - Additional Information Resuscitation Status: Do Not Resuscitate Discharge Diet: Other (Comments) Discharge Activity: Activity As Tolerated Referrals: DERRICK ROGERS PA-C [ALLIED HEALTH PROFESSIONAL] - Follow up as needed Prescriptions: Aspirin [Aspirin 325 mg Tablet] 325 mg PO DAILY PRN #30 pkg PRN Reason: Gabapentin [Neurontin 100 mg Capsule] 100 mg PO Q8HP PRN #90 capsule PRN Reason: Home Medications: Nebivolol HCl [Bystolic 10 mg Tablet] 5 mg PO DAILY 11/21/14 Atorvastatin Calcium [Lipitor 20 mg Tablet] 20 mg PO DAILY 06/24/19 Budesonide/Formoterol Fumarate [Symbicort HFA 160-4.5 mcg Inhaler 6 gm] 2 puff IH BID 06/24/19 Cetirizine HCl [Zyrtec 10 mg Tablet] 10 mg PO DAILY 06/24/19 Ipratropium/Albuterol Sulfate [Combivent Respimat 4 gm Mdi] 1 puff IH QIDP PRN 06/24/19 Levothyroxine Sodium [Synthroid 0.025 mg Tablet] 50 mcg PO DAILY 06/24/19 Linagliptin [Tradjenta] 5 mg PO DAILY 06/24/19 Montelukast Sodium 10 mg PO DAILY 06/24/19 Nitroglycerin 0.4 mg SL PRN PRN 06/24/19 Mometasone Furoate 2 applic TP BID 11/22/19 Omeprazole 40 mg PO BID 11/22/19 Umeclidinium [place] [Incruse Ellipta] 1 puff IH DAILY 11/22/19 Calcitriol [Rocaltrol 0.25 mcg Capsule] 1 cap PO MOFR@1000 02/14/20 Aspirin [Aspirin 325 mg Tablet] 325 mg PO DAILY PRN #30 pkg 02/25/20 Gabapentin [Neurontin 100 mg Capsule] 100 mg PO Q8HP PRN #90 capsule 02/25/20 History of Present Illiness History of Present Illness: NICOLETTE COHEN is a 84 year old female This 84-year-old female was admitting in the hospital for the acute left-sided weakness with acute MCA stroke with occlusion of the MCA Hospital Course Hospital Course: This 84-year-old female's with a history of the type 2 diabetes history of the hypertension hyperlipidemia chronic kidney disease presenting the emergency department with acute left-sided weakness with a diagnosed with acute MCA stroke with the MCA occlusion Patients treated with the conservatively due to the nature of the strokes with the wide spreading and out of the window not a candidate for TPA not a candidate for the interventions Spoke speak with the neurology at [place] suggest that continues to conservative management not a good prognosis Also evaluated but acute rehab not a candidate for acute rehab's suggest that continues a penitentiary facilities Patient's have a very high risk with aspirations as per discussed with the patient's family including the son who is the power of civil attorney patient is currently DNR/DNI do not want to go for any tube placement Patient still high risk for the tube placement with the aspirations At this point patient's discharge more traverse comfort type of the care in nursing facilities Continues to feed the patient with aspirations precautions Patient have a pressure blisters on the back require a specialty bed and continues the barrier cream Overall patient's prognosis is poor discussed with the patient's family at this point more towards the hospice care and a comfort care Physical Exam Vital Signs: Temp Pulse Resp BP Pulse Ox 98.2 F 92 21 H 185/96 H 93 02/25/20 07:57 02/25/20 07:57 02/25/20 07:57 02/25/20 07:57 02/25/20 07:57 Intake & Output 02/24/20 02/25/20 02/26/20 06:59 06:59 06:59 Intake Total 1959 1000 Output Total 650 1250 Balance 1309 -250 Weight 72.5 kg 72.4 kg General appearance: PRESENT: no acute distress Eye exam: PRESENT: PERRLA GI/Abdominal exam: PRESENT: normal bowel sounds, soft Neurological exam: PRESENT: alert, awake Skin exam: PRESENT: dry Additional comments: Patient have a pressure blisters on the back Results Laboratory Results: WBC 7.9 10^3/uL (4.0-10.5) 02/20/20 06:01 RBC 4.32 10^6/uL (3.72-5.28) 02/20/20 06:01 Hgb 13.7 g/dL (12.0-15.5) 02/20/20 06:01 Hct 39.6 % (36.0-47.0) 02/20/20 06:01 MCV 92 fl (80-97) 02/20/20 06:01 MCH 31.7 pg (27.0-33.4) 02/20/20 06:01 MCHC 34.5 g/dL (32.0-36.0) 02/20/20 06:01 RDW 13.8 % (11.5-14.0) 02/20/20 06:01 Plt Count 173 10^3/uL (150-450) 02/20/20 06:01 Lymph % (Auto) 13.2 % (13-45) 02/20/20 06:01 [place] % (Auto) 9.3 % (3-13) 02/20/20 06:01 Eos % (Auto) 2.8 % (0-6) 02/20/20 06:01 Baso % (Auto) 0.2 % (0-2) 02/20/20 06:01 Absolute Neuts (auto) 5.9 10^3/uL (1.7-8.2) 02/20/20 06:01 Absolute Lymphs (auto) 1.0 10^3/uL (0.5-4.7) 02/20/20 06:01 Absolute Monos (auto) 0.7 10^3/uL (0.1-1.4) 02/20/20 06:01 Absolute Eos (auto) 0.2 10^3/uL (0.0-0.6) 02/20/20 06:01 Absolute Basos (auto) 0.0 10^3/uL (0.0-0.2) 02/20/20 06:01 Seg Neutrophils % 74.5 % (42-78) 02/20/20 06:01 PT 13.0 SEC (11.4-15.4) 02/14/20 12:15 INR 0.96 02/14/20 12:15 APTT 23.7 SEC (23.5-35.8) 02/14/20 12:15 VBG pH 7.31 (7.30-7.42) 02/14/20 15:00 VBG pCO2 51.8 mmHg (35-63) 02/14/20 15:00 VBG HCO3 25.4 mmol/L (20-32) 02/14/20 15:00 VBG Base Excess -1.5 mmol/L 02/14/20 15:00 Sodium 145.7 mmol/L (137-145) H 02/20/20 06:01 Potassium 4.1 mmol/L (3.6-5.0) 02/20/20 06:01 Chloride 112 mmol/L (98-107) H 02/20/20 06:01 Carbon Dioxide 19 mmol/L (22-30) L 02/20/20 06:01 Anion Gap 15 (5-19) 02/20/20 06:01 BUN 76 mg/dL (7-20) H 02/20/20 06:01 Creatinine 1.79 mg/dL (0.52-1.25) H 02/20/20 06:01 Est GFR ( Amer) 33 (>60) L 02/20/20 06:01 Est GFR (MDRD) Non-Af 27 (>60) L 02/20/20 06:01 Glucose 145 mg/dL (75-110) H 02/20/20 06:01 POC Glucose 137 mg/dL (70-110) H 02/25/20 08:00 Calcium 9.8 mg/dL (8.4-10.2) 02/20/20 06:01 Total Bilirubin 0.7 mg/dL (0.2-1.3) 02/14/20 12:15 Direct Bilirubin 0.2 mg/dL (0.0-0.4) 02/14/20 12:15 Neonat Total Bilirubin Not Reportable 02/14/20 12:15 Neonat Direct Bilirubin Not Reportable 02/14/20 12:15 Neonat Indirect Bili Not Reportable 02/14/20 12:15 AST 56 U/L (14-36) H 02/14/20 12:15 ALT 38 U/L (<35) H 02/14/20 12:15 Alkaline Phosphatase 110 U/L (38-126) 02/14/20 12:15 Creatine Kinase 470 U/L (30-135) H 02/15/20 14:14 CK-MB (CK-2) 4.95 ng/mL (<4.55) H 02/15/20 14:14 Troponin I 0.029 ng/mL 02/15/20 14:14 NT-Pro-B Natriuret Pep 1540 pg/mL (<450) H 02/14/20 12:15 Total Protein 7.4 g/dL (6.3-8.2) 02/14/20 12:15 Albumin 4.4 g/dL (3.5-5.0) 02/14/20 12:15 Urine Color YELLOW 02/14/20 15:42 Urine Appearance CLEAR 02/14/20 15:42 Urine pH 7.0 (5.0-9.0) 02/14/20 15:42 Ur Specific [place] 1.018 02/14/20 15:42 Urine Protein NEGATIVE mg/dL (NEGATIVE) 02/14/20 15:42 Urine Glucose (UA) NEGATIVE mg/dL (NEGATIVE) 02/14/20 15:42 Urine Ketones NEGATIVE mg/dL (NEGATIVE) 02/14/20 15:42 Urine Blood NEGATIVE (NEGATIVE) 02/14/20 15:42 Urine Nitrite NEGATIVE (NEGATIVE) 02/14/20 15:42 Urine Bilirubin NEGATIVE (NEGATIVE) 02/14/20 15:42 Urine Urobilinogen NEGATIVE mg/dL (<2.0) 02/14/20 15:42 Ur Leukocyte Esterase NEGATIVE (NEGATIVE) 02/14/20 15:42 Urine WBC (Auto) 3 /HPF 02/14/20 15:42 Urine RBC (Auto) 0 /HPF 02/14/20 15:42 Squamous Epi Cells Auto <1 /HPF 02/14/20 15:42 Urine Ascorbic Acid NEGATIVE (NEGATIVE) 02/14/20 15:42 COVID-19 Source See comment 02/17/20 10:47 COVID-19 ([facility]) Not Detected (Not Detect) 02/17/20 10:47 02/14/20 02/15/20 02/15/20 12:15 00:35 05:50 CK-MB (CK-2) 3.27 4.75 H Troponin I < 0.012 0.018 0.033 NT-Pro-B Natriuret Pep 1540 H 02/15/20 14:14 CK-MB (CK-2) 4.95 H Troponin I 0.029 NT-Pro-B Natriuret Pep Impressions: Chest X-Ray 02/14/20 12:27 IMPRESSION: No acute cardiopulmonary disease. Hyperinflated lungs which can be seen with obstructive lung disease. Head CT 02/14/20 12:49 IMPRESSION: Diffuse small vessel ischemic changes. Possible evolving infarct in the right temporal lobe. Correlation with MR would be helpful if clinically indicated. No intracranial hemorrhage. EVIDENCE OF ACUTE STROKE: YES. Cervical Spine CT 02/14/20 12:52 IMPRESSION: Postsurgical and degenerative changes. No acute fracture. Chest CT 02/14/20 12:55 IMPRESSION: No acute findings in the chest. Abdomen/Pelvis CT 02/14/20 12:57 IMPRESSION: NO SIGNIFICANT OR ACUTE FINDING IN THE ABDOMEN OR PELVIS ON CT SCAN WITH IV CONTRAST. Brain MRI with MRA 02/15/20 00:00 IMPRESSION: 1. Allowing for motion, MRA of the carotids is normal. 2. 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 Please see separately dictated MRI brain from same date. Call Report tasked to the [facility] team at the time of interpretation. Head MRI 02/15/20 00:00 IMPRESSION: 1. Positive diffusion, recent MCA distribution infarct. Call report tasked to the [facility] team at the time of interpretation. EVIDENCE OF ACUTE STROKE: YES. RIGHT MCA Neck MRA 02/15/20 00:00 IMPRESSION: 1. Allowing for motion, MRA of the carotids is normal. 2. 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 Please see separately dictated MRI brain from same date. Call Report tasked to the [facility] team at the time of interpretation. Head CT 02/17/20 00:00 IMPRESSION: 1. Evolution of known large right MCA territory infarct with increased hypoattenuation compared to prior CT. No evidence of hemorrhagic conversion. No significant midline shift. Patent basal cisterns. 2. 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 EVIDENCE OF ACUTE STROKE: NO. Modified Barium Swallow 02/17/20 00:00 IMPRESSION: DEEP LARYNGEAL PENETRATION WITH THIN BARIUM AND FROM RESIDUALS, WITHOUT IDENTIFIED ASPIRATION. PLEASE SEE SPEECH PATHOLOGIST REPORT FOR OTHER FINDINGS AND RECOMMENDATIONS. Modified Barium Swallow 02/20/20 00:00 IMPRESSION: DEMONSTRATED ASPIRATION. PLEASE SEE SPEECH PATHOLOGIST REPORT FOR OTHER FINDINGS AND RECOMMENDATIONS. Plan Time Spent: Greater than 30 Minutes - [facility] the [facility] not a candidate for acute rehab's Stroke Is this a Stroke Patient?: Yes Stroke Pt being discharged on Anti-thrombolytic therapy?: Yes Stroke Pt being discharged on Anti-coagulation therapy?: No Reason(s) for not prescribing Anti-coagulation therapy:: Comfort Measure Stroke Pt being discharged on Statins?: Yes Acute Heart Failure Is this a Heart Failure Patient?: No
[2020-02-25] MEDS: ENOXAPARIN SODIUM INJ 30 MG/0.3 ML DISP.SYRIN SUBCUT SCH (10:36)
[2020-02-25] MEDS: LEVOTHYROXINE SODIUM 0.025 MG TABLET PO SCH (10:36)
[2020-02-25] MEDS: ATORVASTATIN CALCIUM 20 MG TABLET PO SCH (10:36)
[2020-02-25] MEDS: NEBIVOLOL HCL 5 MG TABLET PO SCH (10:36)
[2020-02-25] MEDS: ASPIRIN 600 MG SUPP, RECTAL PR SCH (10:38)
[2020-02-25] MEDS: FLUTICASONE/VILANTEROL 200-25 MCG/DOSE IH SCH (10:39)
[2020-02-25] MEDS: 1/2 NORMAL SALINE 1,000 ML IV PRN (15:52)
[2020-02-25] MEDS: ATORVASTATIN CALCIUM 80 MG TABLET PO SCH (21:39)
[2020-02-26] MEDS: 1/2 NORMAL SALINE 1,000 ML IV PRN ×2 (06:51→22:31)
[2020-02-26] MEDS: ATORVASTATIN CALCIUM 20 MG TABLET PO SCH (11:11)
[2020-02-26] MEDS: ENOXAPARIN SODIUM INJ 30 MG/0.3 ML DISP.SYRIN SUBCUT SCH (11:11)
[2020-02-26] MEDS: NEBIVOLOL HCL 5 MG TABLET PO SCH (11:11)
[2020-02-26] MEDS: ASPIRIN 600 MG SUPP, RECTAL PR SCH (11:11)
[2020-02-26] MEDS: FLUTICASONE/VILANTEROL 200-25 MCG/DOSE IH SCH (11:11)
[2020-02-26] MEDS: LEVOTHYROXINE SODIUM 0.025 MG TABLET PO SCH (11:11)
[2020-02-26] MEDS: ATORVASTATIN CALCIUM 80 MG TABLET PO SCH (22:27)
[2020-02-27] MEDS: GABAPENTIN 100 MG CAPSULE PO PRN (03:19)
[2020-02-27] MEDS: ACETAMINOPHEN 325 MG TABLET PO PRN (03:20)
[2020-02-27] MEDS: ENOXAPARIN SODIUM INJ 30 MG/0.3 ML DISP.SYRIN SUBCUT SCH (09:56)
[2020-02-27] MEDS: LEVOTHYROXINE SODIUM 0.025 MG TABLET PO SCH (09:56)
[2020-02-27] MEDS: ASPIRIN 600 MG SUPP, RECTAL PR SCH (09:56)
[2020-02-27] MEDS: NEBIVOLOL HCL 5 MG TABLET PO SCH (09:56)
[2020-02-27] MEDS: FLUTICASONE/VILANTEROL 200-25 MCG/DOSE IH SCH (09:56)
[2020-02-27] MEDS: ATORVASTATIN CALCIUM 20 MG TABLET PO SCH (09:56)
--- NOTE | 2020-02-27 12:24 | PDOC PROGRESS REPORT ---
Subjective Date:: 02/27/20 Subjective:: Patient is currently doing same Currently nothing change Is waiting for the rehab placement Reason For Visit: CVA (CEREBAL VASCULAR ACCIDENT) Physical Exam Vital Signs: Temp Pulse Resp BP Pulse Ox 97.3 F 74 23 H 152/76 H 94 02/27/20 07:10 02/27/20 07:10 02/27/20 03:18 02/27/20 07:10 02/27/20 07:10 Intake & Output 02/26/20 02/27/20 02/28/20 06:59 06:59 06:59 Intake Total 1899 940 Output Total 625 975 Balance 1274 -35 Weight 73.4 kg 72.7 kg General appearance: PRESENT: no acute distress Eye exam: PRESENT: PERRLA Respiratory exam: PRESENT: clear to auscultation kary Cardiovascular exam: PRESENT: +S1, +S2 GI/Abdominal exam: PRESENT: normal bowel sounds, soft Neurological exam: PRESENT: alert, awake Results Laboratory Results: 02/20/20 06:01 02/20/20 06:01 02/14/20 02/14/20 02/15/20 12:15 12:15 00:35 Creatine Kinase 338 H 365 H CK-MB (CK-2) Troponin I < 0.012 NT-Pro-B Natriuret Pep 1540 H 02/15/20 02/15/20 02/15/20 00:35 05:50 05:50 Creatine Kinase 430 H CK-MB (CK-2) 3.27 4.75 H Troponin I 0.018 0.033 NT-Pro-B Natriuret Pep 02/15/20 02/15/20 14:14 14:14 Creatine Kinase 470 H CK-MB (CK-2) 4.95 H Troponin I 0.029 NT-Pro-B Natriuret Pep Impressions: Chest X-Ray 02/14/20 12:27 IMPRESSION: No acute cardiopulmonary disease. Hyperinflated lungs which can be seen with obstructive lung disease. Cervical Spine CT 02/14/20 12:52 IMPRESSION: Postsurgical and degenerative changes. No acute fracture. Chest CT 02/14/20 12:55 IMPRESSION: No acute findings in the chest. Abdomen/Pelvis CT 02/14/20 12:57 IMPRESSION: NO SIGNIFICANT OR ACUTE FINDING IN THE ABDOMEN OR PELVIS ON CT SCAN WITH IV CONTRAST. Brain MRI with MRA 02/15/20 00:00 IMPRESSION: 1. Allowing for motion, MRA of the carotids is normal. 2. 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 Please see separately dictated MRI brain from same date. Call Report tasked to the [facility] team at the time of interpretation. Head MRI 02/15/20 00:00 IMPRESSION: 1. Positive diffusion, recent MCA distribution infarct. Call report tasked to the [facility] team at the time of interpretation. EVIDENCE OF ACUTE STROKE: YES. RIGHT MCA Neck MRA 02/15/20 00:00 IMPRESSION: 1. Allowing for motion, MRA of the carotids is normal. 2. 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 Please see separately dictated MRI brain from same date. Call Report tasked to the [facility] team at the time of interpretation. Head CT 02/17/20 00:00 IMPRESSION: 1. Evolution of known large right MCA territory infarct with increased hypoattenuation compared to prior CT. No evidence of hemorrhagic conversion. No significant midline shift. Patent basal cisterns. 2. 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 EVIDENCE OF ACUTE STROKE: NO. Modified Barium Swallow 02/20/20 00:00 IMPRESSION: DEMONSTRATED ASPIRATION. PLEASE SEE SPEECH PATHOLOGIST REPORT FOR OTHER FINDINGS AND RECOMMENDATIONS. Assessment & Plan - Diagnosis (1) Acute right MCA stroke Is this a current diagnosis for this admission?: Yes (2) Hypertension Qualifiers: Hypertension type: essential hypertension Qualified Code(s): I10 - Essent ial (primary) hypertension Is this a current diagnosis for this admission?: Yes (3) Chronic kidney disease Qualifiers: Chronic kidney disease stage: stage 3 (moderate) Is this a current diagnosis for this admission?: Yes (4) Mixed hyperlipidemia Is this a current diagnosis for this admission?: Yes (5) History of primary bladder cancer Is this a current diagnosis for this admission?: Yes (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 Is this a current diagnosis for this admission?: Yes (7) T2DM (type 2 diabetes mellitus) Qualifiers: Diabetes mellitus care home insulin use: without care home use Diabetes mellitus complication status: with neurologic complications Diabetes mellitus complication detail: with polyneuropathy Qualified Code(s): E11.42 - Type 2 diabetes mellitus with diabetic polyneuropathy Is this a current diagnosis for this admission?: Yes - Time Time Spent with patient: 15-24 minutes Level of Care: IMCU Medications reviewed and adjusted accordingly: Yes Anticipated discharge: SNF Anticipated DC Timeframe: when bed available, Other - Plan Summary Plan Summary: Patient is currently stable discharge to the nursing facilityWith the rehab and then if is not getting better converted to the hospice care
[2020-02-27] MEDS: 1/2 NORMAL SALINE 1,000 ML IV PRN (18:30)
[2020-02-27] MEDS: ATORVASTATIN CALCIUM 80 MG TABLET PO SCH (21:40)
[2020-02-28] MEDS: LEVOTHYROXINE SODIUM 0.025 MG TABLET PO SCH (09:37)
[2020-02-28] MEDS: ATORVASTATIN CALCIUM 20 MG TABLET PO SCH (09:38)
[2020-02-28] MEDS: NEBIVOLOL HCL 5 MG TABLET PO SCH (09:38)
[2020-02-28] MEDS: FLUTICASONE/VILANTEROL 200-25 MCG/DOSE IH SCH (09:40)
[2020-02-28] MEDS: ENOXAPARIN SODIUM INJ 30 MG/0.3 ML DISP.SYRIN SUBCUT SCH (09:40)
[2020-02-28] MEDS: 1/2 NORMAL SALINE 1,000 ML IV PRN (09:44)
[2020-02-28] MEDS: ASPIRIN 600 MG SUPP, RECTAL PR SCH (14:18)
[2020-02-28 15:02] VITALS: BP 167/87
== END 2020-02-28 15:00 | DRG 66 ==
LOC: ER 12:01 → EH 17:20 → 3S 21:34 → 4S 02-27 17:10
PROVIDERS: ADMIT Family Medicine; ATTEND Family Medicine
DX: I63.311 Cerebral infarction due to thrombosis of right middle cerebral artery (principal); E11.22 Type 2 diabetes mellitus with diabetic chronic kidney disease; E11.42 Type 2 diabetes mellitus with diabetic polyneuropathy; I12.9 Hypertensive chronic kidney disease with stage 1 through stage 4 chronic kidney disease, or unspecified chronic kidney disease; N18.30 Chronic kidney disease, stage 3 unspecified; E78.2 Mixed hyperlipidemia; J44.9 Chronic obstructive pulmonary disease, unspecified; M19.90 Unspecified osteoarthritis, unspecified site; R26.9 Unspecified abnormalities of gait and mobility; E66.9 Obesity, unspecified; R29.701 NIHSS score 1; Z66 Do not resuscitate; R53.1 Weakness; Z85.51 Personal history of malignant neoplasm of bladder; Z79.82 Long term (current) use of aspirin; Z79.899 Other long term (current) drug therapy; Z79.84 Long term (current) use of oral hypoglycemic drugs; Z98.1 Arthrodesis status; Z87.891 Personal history of nicotine dependence; Z88.6 Allergy status to analgesic agent; Z23 Encounter for immunization; Z11.59 Encounter for screening for other viral diseases
CPT/HCPCS: 36415; 70450; 70544; 70547; 70551; 71045; 71260; 72125; 74177; 74230; 80048; 80053; 81001; 82550; 82553; 82803; 82962; 83880; 84484; 85025; 85610; 85730; 87040; 87635; 90471; 90686; 93005; 93010; 93306; 96360; 96361; 99291; C9803; G0008; J1650; J3490; J7040